=== PATIENT | female | born 1950 | race Caucasian/White ===

== ENCOUNTER 2017-09-12 06:57 | Day surgery (SDC) | payer OTHER ==
[~2017-09-12] VITALS: Ht 172.7 cm; Wt 137.0 kg
[~2017-09-12 06:57] MED LIST: ACEASPCAF; ALBU90OI INH; ALBU90OI61 INH; ALPR.5; ALPR1 PO; AMLO10 PO; AMOCLA875 PO; ASPI325; ASPI325 PO; ASPI81EC PO; ASPIRIN; ATEN100; ATEN100 PO; B Complex1 EAC2 PO; BUPR100; BUPR100 PO; BUPROPION HCL; Bactrim Ds Tab1 EACH; Bactrim Ds Tab1 EACH PO; CEFU500 PO; CELE200 PO; CEPH500 PO; CHLO500 PO; CHOL10002 PO; CLIN150; CONEST.625 PO; CONEST.9; CYCL10 PO; Cleocin HCl150 MG PO; DABI150C PO; DIGO.125; DIGO.125 PO; DOXY100 PO; EPIDRIN; ERGO50000 PO; ERYT.5TO BOTHEYES; FLEC100; FLEXERIL; FOLI1 PO; FURO20; FURO20 PO; FURO40 PO; Flecainide Ace150 MG PO; GABA100 PO; GABAPENTIN; GUAN1; GUAN1 PO; GUANFACINE; HYDACE10B PO; HYDACE7.5; IBUHYD; IBUHYD PO; IBUP600 PO; IBUP800; IBUP800 PO; ISODICACE; ISODICACE PO; Keflex500 MG PO; Klor-Con-Ef 2525 MEQ PO; LASIX; LEVFLO500 PO; LEVSOD100; LEVSOD100 PO; LEVSOD150; LEVSOD175 PO; LEVSOD200; LEVSOD200 PO; LIDO5TO; LIDO5TO TOP; LORA1; Lasix20 MG PO; MAG 64; MAG 64 PO; MAGCHL64ER; MAGCHL64ER PO; MAGOXI400; METO100ER PO; METO2.5 PO; METO5; METO50ER PO; METOPROLOL; MICARDIS PO; MULVITB; MULVITB&C PO; PENVK500 PO; POTASSIUM; POTCHL10ER; POTCHL10ER PO; POTCHL20ER; POTCHL20ER PO; PRED10 PO; RANI150; RANI150 PO; RXPENVK250 PO; SENNP; SPIHYD; SULTRIDS PO; SYMBICORT INH; TELM20 PO; TELM40; TELM40 PO; TOCO400; TRAM50; TRAM50 PO; TRIHYD253A; TRIHYD253A PO; TRIHYD253B; TRIHYD253B PO; TRIHYD5075; VICOD; VITAMIN D-32000 UNI1 PO; VITB100 PO; VITNEPH PO; Vitamin E PO; WARF1; WARF2; WARF2.5 PO; WARF3; WARF3 PO; Wellbutrin PO; XANEX; Xanax2 MG PO; ZINC15 PO
[2017-09-12] MEDS ORDERED: MAGOXI400 PO (08:04)
[2017-09-12] MEDS ORDERED: LOSA25 PO (08:05)
[2017-09-12] MEDS ORDERED: ELIQUIS5 MG PO (09:19)
[2017-09-12] MEDS ORDERED: METO50ER PO (09:20)
== END 2017-09-12 22:53 | disposition home or self-care (01) ==
LOC: MHTC 06:57
PROC: B246ZZ4 Ultrasonography of Right and Left Heart, Transesophageal (ICD-10-PCS; principal; 2017-09-12)
DX: I48.4 Atypical atrial flutter (principal); R00.0 Tachycardia, unspecified; I48.91 Unspecified atrial fibrillation; I44.30 Unspecified atrioventricular block; I51.3 Intracardiac thrombosis, not elsewhere classified; I10 Essential (primary) hypertension
CPT/HCPCS: 93312; 93325; J2250; J3010; J7030

== ENCOUNTER 2017-10-15 02:25 | Day surgery (SDC) | payer OTHER ==
[~2017-10-15] VITALS: Ht 172.7 cm; Wt 136.0 kg
[~2017-10-15 02:25] MED LIST changes: +ELIQUIS5 MG PO; +FISH OIL 1,0001 EAC1 PO; +LOSA25 PO; +MAGOXI400 PO; +METO25 PO; +Micro-K10 MEQ PO
== END 2017-10-15 22:56 | disposition home or self-care (01) ==
LOC: MHTC 02:25
PROC: 5A2204Z Restoration of Cardiac Rhythm, Single (ICD-10-PCS; principal; 2017-10-15)
DX: I48.92 Unspecified atrial flutter (principal); I48.0 Paroxysmal atrial fibrillation; I10 Essential (primary) hypertension; Z86.14 Personal history of Methicillin resistant Staphylococcus aureus infection
CPT/HCPCS: 92960; 93005; 93010; J2250; J3010; J7030

== ENCOUNTER 2017-10-23 14:49 | Observation (INO) | payer OTHER ==
[~2017-10-23] VITALS: Ht 172.7 cm; Wt 139.9 kg
[~2017-10-23 14:49] MED LIST changes: +Norco 10-325 T1 EACH PO
[2017-10-23 15:59] LABS: BASOPHILS ABSOLUTE AUTO 0.06 K/mm3 (0.00-0.23); BASOPHILS PERCENT AUTO 1 % (0-2); EOSINOPHILS ABSOLUTE AUTO 0.08 K/mm3 (0.00-0.68); EOSINOPHILS PERCENT AUTO 1 % (0-6); Hematocrit 52.3 % (33.0-51.0); Hemoglobin 16.8 g/dL (11.5-16.0); IMMATURE GRAN ABSOLUTE AUTO 0.02 K/mm3 (0.00-0.10); IMMATURE GRAN PERCENT AUTO 0 % (0-1); LYMPHOCYTES ABSOLUTE AUTO 2.07 K/mm3 (0.84-5.20); LYMPHOCYTES PERCENT AUTO 29 % (21-46); MONOCYTES ABSOLUTE AUTO 0.67 K/mm3 (0.16-1.47); MONOCYTES PERCENT AUTO 9 % (4-13); Mean Corpuscular HGB Conc 32.1 g/dL (31.5-36.5); Mean Corpuscular Volume 81 fL (80-100); Mean Platelet Volume 10.2 fL (9.1-12.4); NEUTROPHILS ABSOLUTE AUTO 4.23 K/mm3 (1.96-9.15); NEUTROPHILS PERCENT AUTO 59 % (41-73); Platelet Count 274 K/mm3 (150-400); RDW Coefficient Variation 15.2 % (11.7-14.2); RDW Standard Deviation 43.8 fL (35.1-46.3); Red Blood Cell Count 6.45 M/mm3 (3.80-5.20); White Blood Cell Count 7.13 K/mm3 (4.00-11.30)
[2017-10-23 16:15] LABS: Alanine Aminotransfer (ALT/SGP 26 U/L (12-78); Albumin, Blood 3.4 g/dL (3.4-5.0); Albumin/Globulin Ratio 0.8 (0.8-1.8); Alk Phos 70 U/L (50-136); Anion Gap 9 mmol/L (6-16); Aspartate Aminotrans (AST/SGOT 32 U/L (12-37); Bilirubin, Total 0.5 mg/dL (0.1-1.0); Blood Urea Nitrogen 11 mg/dL (8-24); Bun/Creatinine Ratio 11.3 (12.0-20.0); CO2, Blood 26 mmol/L (21-32); Chloride, Blood 103 mmol/L (98-108); Creatinine, Blood 0.97 mg/dL (0.40-1.00); Globulin, Blood 4.3 g/dL (2.2-4.0); Glomerular Filtration Rate >60 (60-); Glucose, Blood 100 mg/dL (70-99); Potassium, Blood 3.7 mmol/L (3.5-5.5); Sodium, Blood 138 mmol/L (136-145); Total Protein, Blood 7.7 g/dL (6.4-8.2)
[2017-10-23] MEDS ORDERED: LOSA25 PO (16:22)
[2017-10-23] MEDS ORDERED: LORA1 PO (16:22)
[2017-10-23 17:18] LABS: Troponin I <0.015 ng/mL (0.000-0.040)
[2017-10-23 22:54] LABS: Bilirubin, Urine Neg (Neg); Blood, Urine 1+ (Neg); Glucose Qualitative, Urine Neg (Neg); Ketones, Urine Neg (Neg); Leukocyte Esterase, Urine Neg (Neg); Nitrite, Urine Neg (Neg); Protein, Urine Neg (Neg); Source, Urine Clean Catch; Urobilinogen, Urine NORM (Normal)
[2017-10-23] MEDS ORDERED: DIPH50 PO (23:02)
[2017-10-23 23:13] LABS: Appearance, Urine Hazy (Clear); Bacteria Rare /hpf; Color, Urine Yellow (P-Yellow); Squamous Epithelial Cells Mod /hpf (Few); White Blood Cells, Urine 0-2 /hpf (0-5)
[2017-10-24 05:36] LABS: Hematocrit 48.8 % (33.0-51.0); Hemoglobin 15.7 g/dL (11.5-16.0); Mean Corpuscular HGB 26.3 pg (26.0-34.0); Mean Corpuscular HGB Conc 32.2 g/dL (31.5-36.5); Mean Corpuscular Volume 82 fL (80-100); Mean Platelet Volume 10.5 fL (9.1-12.4); Platelet Count 271 K/mm3 (150-400); RDW Standard Deviation 43.8 fL (35.1-46.3); Red Blood Cell Count 5.98 M/mm3 (3.80-5.20); White Blood Cell Count 7.39 K/mm3 (4.00-11.30)
[2017-10-24 06:05] LABS: CPK Creatine Kinase 88 U/L (26-193); Free Thyroxine 1.26 ng/dL (0.70-1.60); Troponin I <0.015 ng/mL (0.000-0.040)
[2017-10-24 06:06] LABS: Alanine Aminotransfer (ALT/SGP 24 U/L (12-78); Albumin/Globulin Ratio 0.8 (0.8-1.8); Alk Phos 57 U/L (50-136); Anion Gap 10 mmol/L (6-16); Aspartate Aminotrans (AST/SGOT 32 U/L (12-37); Bilirubin, Total 0.5 mg/dL (0.1-1.0); Blood Urea Nitrogen 12 mg/dL (8-24); Bun/Creatinine Ratio 12.7 (12.0-20.0); CO2, Blood 24 mmol/L (21-32); Calcium, Blood 8.6 mg/dL (8.5-10.1); Chloride, Blood 106 mmol/L (98-108); Creatinine, Blood 0.94 mg/dL (0.40-1.00); Globulin, Blood 3.7 g/dL (2.2-4.0); Glomerular Filtration Rate >60 (60-); Glucose, Blood 104 mg/dL (70-99); Potassium, Blood 4.2 mmol/L (3.5-5.5); Sodium, Blood 140 mmol/L (136-145); Total Protein, Blood 6.7 g/dL (6.4-8.2)
[2017-10-24 14:01] LABS: CPK Creatine Kinase 128 U/L (26-193); Troponin I <0.015 ng/mL (0.000-0.040)
[2017-10-24] MEDS ORDERED: METO50ER PO (16:42)
[2017-10-24] MEDS ORDERED: LANOXIN125 MCG PO (16:42)
[2017-10-24] MEDS ORDERED: METO50 PO (17:12)
== END 2017-10-24 17:45 | disposition home or self-care (01) ==
LOC: ER 14:49 → PCU 14:50 → ER 20:29 → PCU 20:29
PROVIDERS: Emergency Medicine; Internal Medicine
DX: I48.91 Unspecified atrial fibrillation (principal); I48.92 Unspecified atrial flutter; I42.9 Cardiomyopathy, unspecified; E87.6 Hypokalemia; G89.29 Other chronic pain; I10 Essential (primary) hypertension; G43.909 Migraine, unspecified, not intractable, without status migrainosus; Z79.899 Other long term (current) drug therapy; Z88.5 Allergy status to narcotic agent; Z88.8 Allergy status to other drugs, medicaments and biological substances
CPT/HCPCS: 36415; 71046; 80053; 81001; 82550; 83735; 83880; 84439; 84443; 84484; 85025; 85027; 92960; 93005; 93010; 96374; 96375; 96376; 99285; G0378; J1160; J3480; J7030

== ENCOUNTER 2020-07-27 13:22 | Emergency (ER) | payer OTHER ==
[~2020-07-27] VITALS: Ht 157.5 cm; Wt 63.5 kg
[~2020-07-27 13:22] MED LIST changes: +DIPH50 PO; +LANOXIN125 MCG PO; +LORA1 PO; +METO50 PO
[2020-07-27 14:22] LABS: BASOPHILS ABSOLUTE AUTO 0.09 K/mm3 (0.00-0.23); BASOPHILS PERCENT AUTO 1 % (0-2); EOSINOPHILS ABSOLUTE AUTO 0.15 K/mm3 (0.00-0.68); EOSINOPHILS PERCENT AUTO 2 % (0-6); Hematocrit 48.1 % (33.0-51.0); Hemoglobin 15.1 g/dL (11.5-16.0); IMMATURE GRAN ABSOLUTE AUTO 0.02 K/mm3 (0.00-0.10); IMMATURE GRAN PERCENT AUTO 0 % (0-1); LYMPHOCYTES ABSOLUTE AUTO 2.23 K/mm3 (0.84-5.20); LYMPHOCYTES PERCENT AUTO 31 % (21-46); MONOCYTES PERCENT AUTO 8 % (4-13); Mean Corpuscular HGB 26.9 pg (26.0-34.0); Mean Corpuscular HGB Conc 31.4 g/dL (31.5-36.5); Mean Corpuscular Volume 86 fL (80-100); Mean Platelet Volume 10.6 fL (9.1-12.4); NEUTROPHILS ABSOLUTE AUTO 4.02 K/mm3 (1.96-9.15); NEUTROPHILS PERCENT AUTO 57 % (41-73); Platelet Count 230 K/mm3 (150-400); RDW Coefficient Variation 15.8 % (11.7-14.2); RDW Standard Deviation 48.9 fL (35.1-46.3); Red Blood Cell Count 5.61 M/mm3 (3.80-5.20); White Blood Cell Count 7.11 K/mm3 (4.00-11.30)
[2020-07-27 14:45] LABS: Alanine Aminotransfer (ALT/SGP 36 U/L (12-78); Albumin, Blood 3.3 g/dL (3.4-5.0); Albumin/Globulin Ratio 0.7 (0.8-1.8); Alk Phos 68 U/L (50-136); Anion Gap 7 mmol/L (6-16); Aspartate Aminotrans (AST/SGOT 41 U/L (12-37); Bilirubin, Total 0.8 mg/dL (0.1-1.0); Blood Urea Nitrogen 9 mg/dL (8-24); Bun/Creatinine Ratio 8.7 (12.0-20.0); CO2, Blood 25 mmol/L (21-32); Calcium, Blood 9.5 mg/dL (8.5-10.1); Chloride, Blood 108 mmol/L (98-108); Creatinine, Blood 1.04 mg/dL (0.40-1.00); Globulin, Blood 4.5 g/dL (2.2-4.0); Glomerular Filtration Rate 56 (60-); Glucose, Blood 108 mg/dL (70-99); Potassium, Blood 4.2 mmol/L (3.5-5.5); Sodium, Blood 140 mmol/L (136-145); Total Protein, Blood 7.8 g/dL (6.4-8.2); Troponin I <0.015 ng/mL (0.000-0.040)
[2020-07-27] MEDS ORDERED: AMLODIPINE BES2.5 MG PO (18:02)
[2020-07-27] MEDS ORDERED: MAGNESIUM OXID500 MG PO (18:04)
[2020-07-27 18:49] LABS: Source, Urine Clean Catch
[2020-07-27 18:53] LABS: Appearance, Urine Clear (Clear); Bilirubin, Urine Neg (Neg); Blood, Urine 1+ (Neg); Color, Urine Yellow (P-Yellow); Glucose Qualitative, Urine Neg (Neg); Ketones, Urine Neg (Neg); Leukocyte Esterase, Urine 1+ (Neg); Nitrite, Urine Neg (Neg); Protein, Urine Neg (Neg); Urobilinogen, Urine NORM (Normal)
[2020-07-27 18:59] LABS: Bacteria Many /hpf; Red Blood Cells, Urine 0-2 /hpf (0-2); Squamous Epithelial Cells Mod /hpf (Few)
[2020-07-27] MEDS ORDERED: CEFP200 PO (19:32)
== END 2020-07-27 20:17 | disposition home or self-care (01) ==
LOC: ER 13:22
PROVIDERS: Physician Assistant
DX: N12 Tubulo-interstitial nephritis, not specified as acute or chronic (principal); I10 Essential (primary) hypertension; I48.91 Unspecified atrial fibrillation; Z79.899 Other long term (current) drug therapy; Z79.01 Long term (current) use of anticoagulants; Z88.8 Allergy status to other drugs, medicaments and biological substances; Z91.09 Other allergy status, other than to drugs and biological substances; Z88.5 Allergy status to narcotic agent; Z95.0 Presence of cardiac pacemaker
CPT/HCPCS: 36415; 71046; 80053; 81001; 83735; 83880; 84484; 85025; 87086; 93005; 93010; 96365; 99284-25; J0696

== ENCOUNTER 2020-12-05 17:33 | Inpatient (IN) | payer OTHER, MEDICARE ==
[~2020-12-05] VITALS: Ht 180.3 cm; Wt 162.0 kg
[~2020-12-05 17:33] MED LIST changes: +AMLODIPINE BES2.5 MG PO; +CEFP200 PO; +MAGNESIUM OXID500 MG PO
[2020-12-05 18:13] LABS: BASOPHILS ABSOLUTE AUTO 0.04 K/mm3 (0.00-0.23); BASOPHILS PERCENT AUTO 0 % (0-2); EOSINOPHILS ABSOLUTE AUTO 0.04 K/mm3 (0.00-0.68); EOSINOPHILS PERCENT AUTO 0 % (0-6); Hematocrit 44.4 % (33.0-51.0); Hemoglobin 13.9 g/dL (11.5-16.0); IMMATURE GRAN ABSOLUTE AUTO 0.04 K/mm3 (0.00-0.10); IMMATURE GRAN PERCENT AUTO 0 % (0-1); LYMPHOCYTES ABSOLUTE AUTO 0.91 K/mm3 (0.84-5.20); LYMPHOCYTES PERCENT AUTO 9 % (21-46); MONOCYTES ABSOLUTE AUTO 0.42 K/mm3 (0.16-1.47); MONOCYTES PERCENT AUTO 4 % (4-13); Mean Corpuscular HGB 26.3 pg (26.0-34.0); Mean Corpuscular HGB Conc 31.3 g/dL (31.5-36.5); Mean Corpuscular Volume 84 fL (80-100); Mean Platelet Volume 10.8 fL (9.1-12.4); NEUTROPHILS ABSOLUTE AUTO 9.28 K/mm3 (1.96-9.15); NEUTROPHILS PERCENT AUTO 86 % (41-73); Platelet Count 197 K/mm3 (150-400); RDW Coefficient Variation 17.2 % (11.7-14.2); RDW Standard Deviation 52.4 fL (35.1-46.3); Red Blood Cell Count 5.28 M/mm3 (3.80-5.20); White Blood Cell Count 10.73 K/mm3 (4.00-11.30)
[2020-12-05 18:49] LABS: Alanine Aminotransfer (ALT/SGP 18 U/L (12-78); Albumin, Blood 3.2 g/dL (3.4-5.0); Albumin/Globulin Ratio 0.8 (0.8-1.8); Alk Phos 61 U/L (50-136); Anion Gap 6 mmol/L (6-16); Aspartate Aminotrans (AST/SGOT 27 U/L (12-37); Bilirubin, Total 1.2 mg/dL (0.1-1.0); Blood Urea Nitrogen 9 mg/dL (8-24); CO2, Blood 26 mmol/L (21-32); Calcium, Blood 8.9 mg/dL (8.5-10.1); Chloride, Blood 105 mmol/L (98-108); Globulin, Blood 4.2 g/dL (2.2-4.0); Glomerular Filtration Rate >60 (60-); Glucose, Blood 112 mg/dL (70-99); Sodium, Blood 137 mmol/L (136-145); Total Protein, Blood 7.4 g/dL (6.4-8.2); Troponin I <0.015 ng/mL (0.000-0.040)
[2020-12-05 19:00] LABS: SARS-Cov-2 (COVID-19) PCR, MMC NEGATIVE (NEGATIVE)
[2020-12-05] MEDS ORDERED: LOSA50 PO (19:55)
[2020-12-05] MEDS ORDERED: KLOR-CON 1010 ME3 PO (19:55)
[2020-12-05] MEDS ORDERED: Synthroid/Levo0.2 MG PO (19:56)
[2020-12-05] MEDS ORDERED: FUROSEMIDE40 MG PO (19:56)
[2020-12-05] MEDS ORDERED: METO50ER PO (19:56)
--- NOTE | 2020-12-05 22:15 | NUR ---
PT ADMITTED TO PCU VIA GURNEY FROM ER. DAUGHTER PRESENT DURING ADMISSION ASSESSMENT. PT IS ALERT AND ORIENTED. PT TRANSFERRED TO PCU BED FROM ER [facility]. CONTINOUS BIOX PLACED ON. PT HAS LEFT LOWER EXTREMITY REDNESS - PT REPORTS THE SHE HIT HER LEFT FOOT/TOE APPX 3 WEEKS AGO. PT IS MORBIDLY OBESE. PT HAS WOUNDS TO HER COCCYX. PT DENIES ANY CHEST PAIN OR SOB. PT REPORTS RIGHT SHOULDER PAIN. REVIEWED CALL LIGHT WITH PT. CALL LIGHT WITHIN REACH. BED IN LOW POSITION.
--- NOTE | 2020-12-05 22:39 | NUR ---
CARDIZEM DRIP STARTED AT 5MG/HOUR - SEE VS.
--- NOTE | 2020-12-05 22:55 | NUR ---
CARDIZEM DRIP TURNED UP TO 10ML/HOUR - SEE VS.
--- NOTE | 2020-12-06 | NUR ---
CALLED DR. BARRIENTSO ABOUT 3.2 LACTIC ACID; SHE WILL PUT IN ORDERS
--- NOTE | 2020-12-06 01:00 | NUR ---
CARDIZEM DRIP TURNED OFF - PER ADRIAN MERCADO - HEART RATE IS SUSTAINING 90-100. UPDATED DR. BARRIENTOS AT 0055 WITH HEART RATE SUSTAINING 90-100, AND CARDIZEM DRIP TO BE TURNED OFF. CALL LIGHT WITHIN REACH. BED IN LOW POSITION. FLUIDS AT BEDSIDE.
[2020-12-06 03:35] LABS: BASOPHILS ABSOLUTE AUTO 0.07 K/mm3 (0.00-0.23); BASOPHILS PERCENT AUTO 0 % (0-2); EOSINOPHILS PERCENT AUTO 0 % (0-6); Hematocrit 40.5 % (33.0-51.0); Hemoglobin 12.9 g/dL (11.5-16.0); IMMATURE GRAN ABSOLUTE AUTO 0.17 K/mm3 (0.00-0.10); IMMATURE GRAN PERCENT AUTO 1 % (0-1); LYMPHOCYTES ABSOLUTE AUTO 1.75 K/mm3 (0.84-5.20); LYMPHOCYTES PERCENT AUTO 9 % (21-46); MONOCYTES ABSOLUTE AUTO 0.81 K/mm3 (0.16-1.47); MONOCYTES PERCENT AUTO 4 % (4-13); Mean Corpuscular HGB 26.5 pg (26.0-34.0); Mean Corpuscular HGB Conc 31.9 g/dL (31.5-36.5); Mean Corpuscular Volume 83 fL (80-100); Mean Platelet Volume 10.7 fL (9.1-12.4); NEUTROPHILS ABSOLUTE AUTO 16.63 K/mm3 (1.96-9.15); NEUTROPHILS PERCENT AUTO 86 % (41-73); Platelet Count 187 K/mm3 (150-400); RDW Coefficient Variation 17.2 % (11.7-14.2); RDW Standard Deviation 52.6 fL (35.1-46.3); Red Blood Cell Count 4.87 M/mm3 (3.80-5.20); White Blood Cell Count 19.43 K/mm3 (4.00-11.30)
[2020-12-06 03:55] LABS: Bun/Creatinine Ratio 9.6 (12.0-20.0); Calcium, Blood 8.1 mg/dL (8.5-10.1); Creatinine, Blood 1.15 mg/dL (0.40-1.00)
--- NOTE | 2020-12-06 04:30 | NUR ---
UPDATED DR. BARRIENTOS, ON NO URINATION SINCE ADMIT TO FLOOR, HOWEVER PER ER REPORT PT URINATED JUST PRIOR TO ARRIVAL TO PCU FLOOR. BLADDER SCAN ORDER. UPDATED ON LACTIC ACID - NEW ORDER OBTAINED.
--- NOTE | 2020-12-06 04:54 | NUR ---
BLADDER SCAN - 320 CC. UPDATED MAO GREEN.
--- NOTE | 2020-12-06 06:31 | NUR ---
SHIFT SUMMARY - PT'S HEART RATE HAS BEEN SUSTAINING AFIB 80-90'S, CARDIZEM OFF AT 0100. PT DENIED ANY CHEST PAIN OR DISCOMFORT WITH AFIB. PT TOLERATED PO FLUIDS/FOOD TONIGHT WITHOUT COMPLICATIONS. BLADDER SCAN AT 0450 SHOWED 320 CC URINE - NOTIFIED PETER CAVANAUGH. PT HAS BEEN SLEEPING FOR APPX 1 HOUR TONIGHT. IV FLUIDS INFUSED TO LEFT AC IV SITE WITHOUT COMPLICATIONS. LACTIC ACID ELEVATED - SEE LABS. CALL LIGHT WITHIN REACH. BED IN LOW POSITION. FLUIDS AT BEDSIDE.
--- NOTE | 2020-12-06 06:37 | NUR ---
WILL REPORT OFF THIS AM - PT HAS CELLULITIS, NO PAS CURRENTLY ON - AND DVT PROPHYLAXIS DC'D DUE TO RECTAL BLEEDING. PT REPORTS SHE HAS "INTERNAL HEMORROIDS." PT WAS ADAMENT THAT SHE DIDN'T HAVE RECTAL BLEEDING, ONLY "INTERNAL HEMORROIDS."
[2020-12-06 10:35] LABS: Percent Saturation 7.7 % (15.0-50.0)
--- NOTE | 2020-12-06 11:48 | NUR ---
metoprolol and cozaar were held this morning, per ordered parameters, as the systolic blood pressure was less than 110mmHg, both at 0930 and at 1100.
--- NOTE | 2020-12-06 14:15 | NUR ---
Pt is very weak, states lately having difficulty moving around since she has been sick. States that the left leg became red just two days ago; before that it was normal color. Left leg has been kept elevated on 1-2 pillows to help reduce pain and swelling. she has not requested any pain medication. She has been very tired, napping off and on today, and says that she hardly slept last night, with the ER wait and then all the things that staff had to do with her once she arrived in PCU. Encouraged frequent repositioning to help with wound healing of the two tiny ulcers on her buttocks and redness on buttocks and sacal area and prevent further breakdown. She requires help with this. Appetite fair, but poor dentition makes it difficult to chew, so diet was changed to soft bite size. She has had good oral liquid intake.
--- NOTE | 2020-12-06 16:57 | NUR ---
Call from Dr. Abarca requesting update on GI status of pt. He says that he will see the patient later this evening. She has had no GI output at all today, and has eaten with a fair appetite. No nausea/vomiting.
--- NOTE | 2020-12-06 18:24 | NUR ---
OOB to use commode; pt said she didn't want to use the BSC, but insisted on going into the bathroom. This requires a lot of effort on her part, as her weight makes the work much greater, and heart rate was noted 140-160 bpm during the activity. She states that she has not been able to leave her home for 4 years due to her poor health, which she contributes to a fall/accident through a wood deck as well as poor healing wounds on her feet, and her neuropathy. She is at present sitting on the side of the bed, heart rate is down to 145 while she is dangling on side of bed to eat her dinner. States that she feels much better after passing a lot of gas and having a normal bowel movement.
--- NOTE | 2020-12-06 18:55 | NUR ---
Call to Dr. De Souza regarding positive blood cultures gram - bacilli in both bottles, reported to me this evening by coreroom foundry laborer. New orders received.
[2020-12-07 04:09] LABS: Hematocrit 37.9 % (33.0-51.0); Hemoglobin 12.6 g/dL (11.5-16.0); Mean Corpuscular HGB 26.9 pg (26.0-34.0); Mean Corpuscular HGB Conc 33.2 g/dL (31.5-36.5); Mean Corpuscular Volume 81 fL (80-100); Mean Platelet Volume 11.1 fL (9.1-12.4); Platelet Count 148 K/mm3 (150-400); RDW Coefficient Variation 17.3 % (11.7-14.2); RDW Standard Deviation 50.3 fL (35.1-46.3); Red Blood Cell Count 4.68 M/mm3 (3.80-5.20); White Blood Cell Count 13.79 K/mm3 (4.00-11.30)
[2020-12-07 04:28] LABS: Bun/Creatinine Ratio 14.8 (12.0-20.0); Calcium, Blood 8.2 mg/dL (8.5-10.1); Creatinine, Blood 0.95 mg/dL (0.40-1.00); Potassium, Blood 3.8 mmol/L (3.5-5.5)
--- NOTE | 2020-12-07 06:35 | NUR ---
SHIFT SUMMARY NO ACUTE CHANGES NOTED THROUGH THE NIGHT. VSS, ON RA, PT HAS RECIEVED TYLENOL FOR A HEADACHE X1 BUT CONTINUES TO DENY ANY ABD PAIN/NAUSEA. PT WAS UP TO THE BSC X2, HR REMAINED WITHIN 95-115 BPM, PT TOLERATED WNL, SHE DID C/O SOB X1 THAT RESOLVED AFTER PASSING A LARGE AMOUNT OF FLATUS. WAS IN TO SPEAK WITH THE PT, HE MENTIONED A POSSIBLE COLONOSCOPY DUE TO PRE-CANCEROUS POLYS ON PREVIOUS SCOPES, PT DENIED THE NEED & STATED "MY HEART CAN'T TAKE ANY PROCEDURE", THE PT WAS EDUCATED AT THIS TIME, REASSURANCE PROVIDED, PT CONTINUES TO DENY NEED. NO BLEEDING NOTED THROUGH THE NIGHT. PT IS TOLERATING PO INTAKE, VOIDING WNL.
--- NOTE | 2020-12-07 10:58 | NUR ---
Sruthi has been awake and conversant today. C/O of pain in her back, hips, and left knee, for which she takes Tylenol throughout the day (at home). She has declined OOB for breakfast, and also declined OOB to the recliner both before and after lunch. She has been using the BSC to void this morning and during the night, I was told. Heart rate controlled rate this shift so far, once had a spike of rate up to 116 but it was not sustained. Heart rhythm is atrial fibrillation, for the most part in the range of 90-99 bpm per Jessica the television operator today. Left upper inner thigh is perhaps less red and swollen than yesterday, but the left lower leg remains very hot, red, and swollen. Pt denies pain there due to her significant neuropathy making her feet and legs numb. Wound cultures were initially positive for MRSA today. she has not had much of an appetite this morning, but is drinking cranberry juice and 7 UP.
--- NOTE | 2020-12-07 18:09 | NUR ---
Sruthi has made much improvement in control of atrial fibrillation today. This afternoon activity of sitting on side of bed, ambulating to the bathroom resulted in heart rate of 95-109, and much better tolerance on side of patient. She has chronic back, hips and left knee pain, but otherwise has neuropathy which prevents her from good sensation of the lower extremities, except for shooting electrical shocks which she says kept her awake last night. Ambulating to the bathroom with minimal assistance using FWW. Appetite fair, voiding and having bowel movements. BM was loose twice today, and she also has "a lot of gas". Taking two antibiotics IV and probiotics orally. Left leg redness and edema are significant. Keeping left leg elevated when pt is in bed. PAOLA hose applied to both legs, but the largest size of PAOLA hose was painful for her left leg so it was removed.
[2020-12-08 04:11] LABS: BASOPHILS ABSOLUTE AUTO 0.05 K/mm3 (0.00-0.23); BASOPHILS PERCENT AUTO 1 % (0-2); EOSINOPHILS ABSOLUTE AUTO 0.18 K/mm3 (0.00-0.68); EOSINOPHILS PERCENT AUTO 2 % (0-6); Hematocrit 40.6 % (33.0-51.0); IMMATURE GRAN ABSOLUTE AUTO 0.04 K/mm3 (0.00-0.10); IMMATURE GRAN PERCENT AUTO 0 % (0-1); LYMPHOCYTES ABSOLUTE AUTO 1.69 K/mm3 (0.84-5.20); LYMPHOCYTES PERCENT AUTO 18 % (21-46); MONOCYTES ABSOLUTE AUTO 0.63 K/mm3 (0.16-1.47); MONOCYTES PERCENT AUTO 7 % (4-13); Mean Corpuscular HGB 26.7 pg (26.0-34.0); Mean Corpuscular Volume 84 fL (80-100); Mean Platelet Volume 11.3 fL (9.1-12.4); NEUTROPHILS ABSOLUTE AUTO 6.94 K/mm3 (1.96-9.15); NEUTROPHILS PERCENT AUTO 73 % (41-73); Platelet Count 185 K/mm3 (150-400); RDW Coefficient Variation 17.4 % (11.7-14.2); RDW Standard Deviation 53.1 fL (35.1-46.3); Red Blood Cell Count 4.86 M/mm3 (3.80-5.20); White Blood Cell Count 9.53 K/mm3 (4.00-11.30)
[2020-12-08 04:34] LABS: Albumin, Blood 2.5 g/dL (3.4-5.0); Albumin/Globulin Ratio 0.6 (0.8-1.8); Bilirubin, Total 0.7 mg/dL (0.1-1.0); Bun/Creatinine Ratio 12.4 (12.0-20.0); Calcium, Blood 8.7 mg/dL (8.5-10.1); Creatinine, Blood 1.13 mg/dL (0.40-1.00); Globulin, Blood 4.3 g/dL (2.2-4.0); Potassium, Blood 3.7 mmol/L (3.5-5.5); Total Protein, Blood 6.8 g/dL (6.4-8.2)
--- NOTE | 2020-12-08 06:29 | NUR ---
SHIFT SUMMARY PATIENT FOUND TO BE A PLESANT LADY WHO IS A&OX4. GEN WEAKNESS NOTED. UP WITH ONE ASSIST IN ROOM. VSS. ON RA. NO TELE ORDERED. TOLERATING CARDIAC DIET WITHOUT ISSUE. VOIDING WELL PER BSC WITH SBA. SOME CHRONIC PAIN TO BACK WITH DECENT RELIEF WITH PRN TYLENOL. ENCOURAGING SELF TURNS IN BED. IV ABX INFUSED PER ORDER. NO ACUTE CONCERNS AT THIS TIME. WILL CONTINUE TO MONITOR UNTIL REPORT GIVEN TO BELEN GOOD.
[2020-12-08 14:37] LABS: Vancomycin, Trough 17.8 ug/mL (5.0-10.0)
--- NOTE | 2020-12-08 17:46 | NUR ---
SHIFT SUMMARY; ASSUMED CARE AT 0700. A/A/OX4 DURING SHIFT. AMBULATES TO RESTROOM WITH WALKER AND STANDY ASSIST. LEFT LOWER LEG RED AND WARM. ABX PER EMAR. REPOSITIONS SELF IN BED NEEDED. VSS, NO ACUTE CHANGES DURING SHIFT. REPORT TO MEDICAL FLOOR RN TO ASSUME CARE FOR INHOUSE TRANSFER.
--- NOTE | 2020-12-08 19:34 | NUR ---
SHIFT SUMMARY PT IS AOX4. PT DENIES PAIN, N/V, SOB. PT IS ONE ASSIST IN ROOM. TELE IS AFIB 70S-80S. PT APPETITE IS GOOD. PT'S DAUGHTERS VISITED THIS ANDRÉS. PLAN IS FOR POSSIBLE DC TOMORROW. PT TRANSFERRED TO UNIT AT APPROXIMATELY 1815. PT IS IN BED, CALL LIGHT IN REACH, LOW POSITION.
[2020-12-09 05:16] LABS: Hematocrit 41.7 % (33.0-51.0); Mean Corpuscular HGB 26.4 pg (26.0-34.0); Mean Corpuscular HGB Conc 31.2 g/dL (31.5-36.5); Mean Corpuscular Volume 85 fL (80-100); Mean Platelet Volume 11.3 fL (9.1-12.4); Platelet Count 194 K/mm3 (150-400); RDW Coefficient Variation 17.5 % (11.7-14.2); RDW Standard Deviation 53.9 fL (35.1-46.3); Red Blood Cell Count 4.93 M/mm3 (3.80-5.20)
--- NOTE | 2020-12-09 05:16 | NUR ---
SHIFT SUMMARY PT IS A 70 Y/O FEMALE, ADMITTED FOR AFIB WITH RVR. SHE IS A&O X 4, 1PA TO THE BATHROOM. NO C/O CHEST PAIN, NAUSEA OR SOB. VITAL SIGNS STABLE, HR IN THE 80S. NO ACUTE CHANGES IN PT CONDITION NOTED DURING THE NIGHT. WILL CONTINUE TO MONITOR AND TREAT PER EMAR UNTIL HAND OFF TO DAY SHIFT RN.
[2020-12-09 05:44] LABS: Albumin, Blood 2.5 g/dL (3.4-5.0); Albumin/Globulin Ratio 0.6 (0.8-1.8); Bilirubin, Total 0.6 mg/dL (0.1-1.0); Bun/Creatinine Ratio 12.4 (12.0-20.0); Calcium, Blood 9.1 mg/dL (8.5-10.1); Creatinine, Blood 1.05 mg/dL (0.40-1.00); Globulin, Blood 4.5 g/dL (2.2-4.0); Potassium, Blood 3.8 mmol/L (3.5-5.5)
[2020-12-09 16:48] LABS: Vancomycin, Trough 19.5 ug/mL (5.0-10.0)
--- NOTE | 2020-12-09 18:42 | NUR ---
SHIFT SUMMARY PT IS AOX4. PT MEDICATED FOR ABD PAIN X1. PT DENIES N/V/D. PT HAD ONE SMALL BM THIS SHIFT. NO PROCEDURES THIS SHIFT. PLAN IS TO MONITOR INFECTION AND PT WILL STAY TONIGHT, POSSIBLE DC TOMORROW. PT'S DAUGHTER VISITED THIS SHIFT. PT IS IN BED, CALL LIGHT IN REACH.
--- NOTE | 2020-12-10 06:15 | NUR ---
SHIFT SUMMARY PT IS A 70 Y/O FEMALE, ADMITTED FOR AFIB WITH RVR. SHE IS A&O X 4, 1PA TO THE BATHROOM. SHE WAS MEDICATED FOR BACK PAIN, DENIED ANY C/O NAUSEA OR SOB. VITAL SIGNS STABLE. NO ACUTE CHANGES IN PT CONDITION NOTED DURING THE NIGHT. WILL CONTINUE TO MONITOR AND TREAT PER EMAR UNTIL HAND OFF TO DAY SHIFT RN.
[2020-12-10] MEDS ORDERED: VISBIOME 112.51 EACH PO (09:32)
[2020-12-10] MEDS ORDERED: GABA300 PO (09:32)
[2020-12-10] MEDS ORDERED: DOXY100 PO (09:33)
--- NOTE | 2020-12-10 12:14 | NUR ---
PT DISCHARGED FROM THE UNIT. IV REMOVED. DISCHARGE INSTRUCTIONS REVIEWED. MEDICATIONS FAXED TO PHARMACY. PT LEFT UNIT VIA WHEEL CHAIR, DAUGHTER TO DRIVE HOME.
== END 2020-12-10 11:55 | disposition home or self-care (01) | DRG 871 ==
LOC: ER 17:33 → PCU 19:54 → MEDS 12-08 18:08
PROVIDERS: Emergency Medicine; Internal Medicine; ADMIT Family Medicine
DX: A41.02 Sepsis due to Methicillin resistant Staphylococcus aureus (principal); I50.31 Acute diastolic (congestive) heart failure; A28.0 Pasteurellosis; L03.116 Cellulitis of left lower limb; N17.9 Acute kidney failure, unspecified; K62.5 Hemorrhage of anus and rectum; Z68.41 Body mass index [BMI] 40.0-44.9, adult; I42.8 Other cardiomyopathies; Z20.822 Contact with and (suspected) exposure to COVID-19; I48.91 Unspecified atrial fibrillation; G62.9 Polyneuropathy, unspecified; G43.909 Migraine, unspecified, not intractable, without status migrainosus; Z90.49 Acquired absence of other specified parts of digestive tract; Z96.641 Presence of right artificial hip joint; Z90.710 Acquired absence of both cervix and uterus; Z95.0 Presence of cardiac pacemaker; Z88.8 Allergy status to other drugs, medicaments and biological substances; Z88.5 Allergy status to narcotic agent; Z79.899 Other long term (current) drug therapy; E66.01 Morbid (severe) obesity due to excess calories; E03.9 Hypothyroidism, unspecified; I48.0 Paroxysmal atrial fibrillation; I27.20 Pulmonary hypertension, unspecified; F41.0 Panic disorder [episodic paroxysmal anxiety]; F43.10 Post-traumatic stress disorder, unspecified; Z89.421 Acquired absence of other right toe(s); D50.9 Iron deficiency anemia, unspecified; K59.00 Constipation, unspecified; I10 Essential (primary) hypertension; Z91.018 Allergy to other foods; Z91.048 Other nonmedicinal substance allergy status; Z79.01 Long term (current) use of anticoagulants; Z79.890 Hormone replacement therapy; M54.9 Dorsalgia, unspecified; I49.5 Sick sinus syndrome; M19.90 Unspecified osteoarthritis, unspecified site; Z87.442 Personal history of urinary calculi; Z90.722 Acquired absence of ovaries, bilateral; Z86.010 Personal history of colon polyps
CPT/HCPCS: 36415; 80048; 80053; 80202; 82728; 83540; 83550; 83605; 83735; 83880; 84443; 84484; 85025; 85027; 85651; 87040; 87077; 87081; 93005; 93010; 93306; 93970; 96360; 96361; 99285-25; A9270; J0295; J0690; J0696; J3370; J7030; J7050; J7120; U0004

== ENCOUNTER → 2021-02-15 | Outpatient (CLI) | payer OTHER, MEDICARE ==
[~2021-02-15] MED LIST changes: +FUROSEMIDE40 MG PO; +GABA300 PO; +KLOR-CON 1010 ME3 PO; +LOSA50 PO; +Synthroid/Levo0.2 MG PO; +VISBIOME 112.51 EACH PO
[2021-02-15 18:05] LABS: BASOPHILS PERCENT AUTO 2 % (0-2); EOSINOPHILS ABSOLUTE AUTO 0.17 K/mm3 (0.00-0.68); EOSINOPHILS PERCENT AUTO 3 % (0-6); Hematocrit 46.6 % (33.0-51.0); Hemoglobin 14.7 g/dL (11.5-16.0); IMMATURE GRAN ABSOLUTE AUTO 0.02 K/mm3 (0.00-0.10); IMMATURE GRAN PERCENT AUTO 0 % (0-1); LYMPHOCYTES ABSOLUTE AUTO 2.17 K/mm3 (0.84-5.20); LYMPHOCYTES PERCENT AUTO 33 % (21-46); MONOCYTES ABSOLUTE AUTO 0.58 K/mm3 (0.16-1.47); MONOCYTES PERCENT AUTO 9 % (4-13); Mean Corpuscular HGB 26.7 pg (26.0-34.0); Mean Corpuscular HGB Conc 31.5 g/dL (31.5-36.5); Mean Corpuscular Volume 85 fL (80-100); Mean Platelet Volume 11.3 fL (9.1-12.4); NEUTROPHILS ABSOLUTE AUTO 3.51 K/mm3 (1.96-9.15); NEUTROPHILS PERCENT AUTO 54 % (41-73); Platelet Count 263 K/mm3 (150-400); RDW Coefficient Variation 19.9 % (11.7-14.2); RDW Standard Deviation 59.2 fL (35.1-46.3); White Blood Cell Count 6.55 K/mm3 (4.00-11.30)
[2021-02-15 18:32] LABS: Alanine Aminotransfer (ALT/SGP 18 U/L (12-78); Albumin, Blood 2.9 g/dL (3.4-5.0); Albumin/Globulin Ratio 0.6 (0.8-1.8); Alk Phos 83 U/L (50-136); Anion Gap 6 mmol/L (6-16); Aspartate Aminotrans (AST/SGOT 35 U/L (12-37); Bilirubin, Total 0.9 mg/dL (0.1-1.0); Blood Urea Nitrogen 11 mg/dL (8-24); Bun/Creatinine Ratio 11.1 (12.0-20.0); CHOL/HDL RATIO 5.9; CO2, Blood 28 mmol/L (21-32); Calcium, Blood 9.6 mg/dL (8.5-10.1); Chloride, Blood 106 mmol/L (98-108); Cholesterol 176 mg/dL (50-200); Creatinine, Blood 0.99 mg/dL (0.40-1.00); Glomerular Filtration Rate 55 (60-); Glucose, Blood 80 mg/dL (70-99); HDL Cholesterol 30 mg/dL (>39); Low Density Lipoprotein Chol 120 mg/dL (0-110); Sodium, Blood 140 mmol/L (136-145); Total Protein, Blood 7.9 g/dL (6.4-8.2); Triglycerides 129 mg/dL (30-160); Very Low Density Lipoprot Chol 25 mg/dL (6-32)
[2021-02-16 09:10] LABS: HCV AB <0.1 (0.0-0.9)
== END | disposition home or self-care (01) ==
LOC: LAB SHORT 11:35
PROVIDERS: Nurse Practitioner Family
DX: Z11.59 Encounter for screening for other viral diseases (principal); I48.3 Typical atrial flutter; E03.9 Hypothyroidism, unspecified; E78.5 Hyperlipidemia, unspecified; I10 Essential (primary) hypertension
CPT/HCPCS: 80053; 80061; 83036; 83735; 84443; 85025; 86803

== ENCOUNTER 2021-07-05 15:59 | Emergency (ER) | payer OTHER ==
[~2021-07-05] VITALS: Ht 172.7 cm; Wt 145.2 kg
[2021-07-05] MEDS ORDERED: CEPH500 PO (16:31)
== END 2021-07-05 18:36 | disposition home or self-care (01) ==
LOC: ER 15:59
DX: L89.312 Pressure ulcer of right buttock, stage 2 (principal); I10 Essential (primary) hypertension; I48.91 Unspecified atrial fibrillation; Z79.01 Long term (current) use of anticoagulants; Z79.2 Long term (current) use of antibiotics; Z79.899 Other long term (current) drug therapy; Z88.5 Allergy status to narcotic agent; Z91.048 Other nonmedicinal substance allergy status; Z91.018 Allergy to other foods; Z88.8 Allergy status to other drugs, medicaments and biological substances
CPT/HCPCS: 99283

== ENCOUNTER 2021-07-19 13:49 | Emergency (ER) | payer OTHER ==
[~2021-07-19] VITALS: Ht 175.3 cm; Wt 136.1 kg
[2021-07-19 15:34] LABS: BASOPHILS ABSOLUTE AUTO 0.06 K/mm3 (0.00-0.23); BASOPHILS PERCENT AUTO 1 % (0-2); EOSINOPHILS ABSOLUTE AUTO 0.12 K/mm3 (0.00-0.68); EOSINOPHILS PERCENT AUTO 1 % (0-6); Hematocrit 38.7 % (33.0-51.0); Hemoglobin 12.4 g/dL (11.5-16.0); IMMATURE GRAN ABSOLUTE AUTO 0.07 K/mm3 (0.00-0.10); IMMATURE GRAN PERCENT AUTO 1 % (0-1); LYMPHOCYTES ABSOLUTE AUTO 1.36 K/mm3 (0.84-5.20); LYMPHOCYTES PERCENT AUTO 14 % (21-46); MONOCYTES ABSOLUTE AUTO 0.88 K/mm3 (0.16-1.47); MONOCYTES PERCENT AUTO 9 % (4-13); Mean Corpuscular HGB 26.1 pg (26.0-34.0); Mean Corpuscular Volume 81 fL (80-100); NEUTROPHILS PERCENT AUTO 75 % (41-73); Platelet Count 227 K/mm3 (150-400); RDW Coefficient Variation 19.8 % (11.7-14.2); Red Blood Cell Count 4.76 M/mm3 (3.80-5.20); White Blood Cell Count 9.99 K/mm3 (4.00-11.30)
[2021-07-19 15:44] LABS: Albumin, Blood 2.6 g/dL (3.4-5.0); Albumin/Globulin Ratio 0.5 (0.8-1.8); Bilirubin, Total 1.1 mg/dL (0.1-1.0); Calcium, Blood 8.9 mg/dL (8.5-10.1); Globulin, Blood 4.9 g/dL (2.2-4.0); Potassium, Blood 3.6 mmol/L (3.5-5.5); Total Protein, Blood 7.5 g/dL (6.4-8.2)
[2021-07-19 15:46] LABS: Source, Urine Clean Catch
[2021-07-19 15:53] LABS: Appearance, Urine Clear (Clear); Bilirubin, Urine Neg (Neg); Blood, Urine 2+ (Neg); Color, Urine Yellow (P-Yellow); Glucose Qualitative, Urine Neg (Neg); Ketones, Urine Neg (Neg); Leukocyte Esterase, Urine Neg (Neg); Nitrite, Urine Neg (Neg); Protein, Urine 1+ (Neg); Specific Gravity, Urine 1.015 (1.003-1.022); Urobilinogen, Urine NORM (Normal)
[2021-07-19 16:19] LABS: Bacteria Rare /hpf; Squamous Epithelial Cells Few /hpf (Few)
[2021-07-19 16:29] LABS: Influenza A, PCR NEGATIVE (NEGATIVE); Influenza B, PCR NEGATIVE (NEGATIVE); Resp Syncytial Virus, PCR NEGATIVE (NEGATIVE); SARS-Cov-2 (COVID-19) PCR, MMC NEGATIVE (NEGATIVE)
== END 2021-07-19 19:40 | disposition home or self-care (01) ==
LOC: ER 13:49
PROVIDERS: Physician Assistant
DX: B34.9 Viral infection, unspecified (principal); Z20.822 Contact with and (suspected) exposure to COVID-19; I10 Essential (primary) hypertension; Z79.899 Other long term (current) drug therapy; Z88.5 Allergy status to narcotic agent; Z88.8 Allergy status to other drugs, medicaments and biological substances
CPT/HCPCS: 0241U; 36415; 51701; 71045; 80053; 81001; 83605; 84145; 85025; 86140; 87086; 93005; 93010; 99284-25

== ENCOUNTER 2021-08-16 13:20 | Emergency (ER) | payer OTHER ==
[~2021-08-16] VITALS: Ht 172.7 cm; Wt 136.1 kg
[2021-08-16 14:55] LABS: BASOPHILS ABSOLUTE AUTO 0.06 K/mm3 (0.00-0.23); BASOPHILS PERCENT AUTO 1 % (0-2); EOSINOPHILS ABSOLUTE AUTO 0.26 K/mm3 (0.00-0.68); EOSINOPHILS PERCENT AUTO 6 % (0-6); Hematocrit 26.4 % (33.0-51.0); IMMATURE GRAN ABSOLUTE AUTO 0.01 K/mm3 (0.00-0.10); IMMATURE GRAN PERCENT AUTO 0 % (0-1); LYMPHOCYTES ABSOLUTE AUTO 1.77 K/mm3 (0.84-5.20); LYMPHOCYTES PERCENT AUTO 38 % (21-46); MONOCYTES ABSOLUTE AUTO 0.54 K/mm3 (0.16-1.47); MONOCYTES PERCENT AUTO 12 % (4-13); Mean Corpuscular HGB 25.5 pg (26.0-34.0); Mean Corpuscular HGB Conc 30.3 g/dL (31.5-36.5); Mean Corpuscular Volume 84 fL (80-100); Mean Platelet Volume 10.1 fL (9.1-12.4); NEUTROPHILS ABSOLUTE AUTO 1.98 K/mm3 (1.96-9.15); NEUTROPHILS PERCENT AUTO 43 % (41-73); Platelet Count 261 K/mm3 (150-400); RDW Coefficient Variation 19.3 % (11.7-14.2); RDW Standard Deviation 59.3 fL (35.1-46.3); Red Blood Cell Count 3.14 M/mm3 (3.80-5.20); White Blood Cell Count 4.62 K/mm3 (4.00-11.30)
[2021-08-16 15:26] LABS: Alanine Aminotransfer (ALT/SGP 12 U/L (12-78); Albumin, Blood 1.8 g/dL (3.4-5.0); Albumin/Globulin Ratio 0.5 (0.8-1.8); Alk Phos 55 U/L (50-136); Anion Gap 9 mmol/L (6-16); Aspartate Aminotrans (AST/SGOT 25 U/L (12-37); Bilirubin, Total 0.7 mg/dL (0.1-1.0); Blood Urea Nitrogen 7 mg/dL (8-24); Bun/Creatinine Ratio 8.4 (12.0-20.0); CO2, Blood 22 mmol/L (21-32); Calcium, Blood 7.9 mg/dL (8.5-10.1); Chloride, Blood 105 mmol/L (98-108); Creatinine, Blood 0.83 mg/dL (0.40-1.00); Globulin, Blood 3.8 g/dL (2.2-4.0); Glomerular Filtration Rate >60 (60-); Glucose, Blood 85 mg/dL (70-99); Potassium, Blood 3.7 mmol/L (3.5-5.5); Sodium, Blood 136 mmol/L (136-145); Total Protein, Blood 5.6 g/dL (6.4-8.2)
[2021-08-16] MEDS ORDERED: TORSE20 PO (16:39)
== END 2021-08-16 20:40 | disposition home or self-care (01) ==
LOC: ER 13:20
PROVIDERS: Student in an Organized Health Care Education/Training Program
DX: D64.9 Anemia, unspecified (principal); K92.1 Melena; K64.4 Residual hemorrhoidal skin tags; R60.0 Localized edema; E88.09 Other disorders of plasma-protein metabolism, not elsewhere classified; R79.89 Other specified abnormal findings of blood chemistry; L98.429 Non-pressure chronic ulcer of back with unspecified severity; Z88.8 Allergy status to other drugs, medicaments and biological substances; Z88.5 Allergy status to narcotic agent; Z91.048 Other nonmedicinal substance allergy status; Z91.018 Allergy to other foods; Z79.899 Other long term (current) drug therapy; I10 Essential (primary) hypertension; I48.91 Unspecified atrial fibrillation; G43.909 Migraine, unspecified, not intractable, without status migrainosus
CPT/HCPCS: 71045; 80053; 83880; 85025; 93971; 96374; 99284-25; J1940

== ENCOUNTER → 2021-08-30 | Outpatient (CLI) | payer OTHER ==
[~2021-08-30] MED LIST changes: +TORSE20 PO
[2021-08-30 19:16] LABS: Hematocrit 29.3 % (33.0-51.0); Hemoglobin 8.9 g/dL (11.5-16.0); Mean Corpuscular HGB 24.9 pg (26.0-34.0); Mean Corpuscular HGB Conc 30.4 g/dL (31.5-36.5); Mean Corpuscular Volume 82 fL (80-100); Mean Platelet Volume 10.5 fL (9.1-12.4); NRBC ABSOLUTE 0.02 K/mm3 (0.00-0.02); NRBC Auto 0.2 /100 WBC (0.0-0.2); Platelet Count 407 K/mm3 (150-400); RDW Standard Deviation 52.6 fL (35.1-46.3); Red Blood Cell Count 3.58 M/mm3 (3.80-5.20); White Blood Cell Count 12.77 K/mm3 (4.00-11.30)
[2021-08-30 19:45] LABS: Alanine Aminotransfer (ALT/SGP 13 U/L (12-78); Albumin, Blood 2.3 g/dL (3.4-5.0); Albumin/Globulin Ratio 0.5 (0.8-1.8); Alk Phos 104 U/L (50-136); Anion Gap 3 mmol/L (6-16); Aspartate Aminotrans (AST/SGOT 27 U/L (12-37); Bilirubin, Total 0.5 mg/dL (0.1-1.0); Blood Urea Nitrogen 11 mg/dL (8-24); Bun/Creatinine Ratio 12.9 (12.0-20.0); CO2, Blood 31 mmol/L (21-32); Calcium, Blood 8.5 mg/dL (8.5-10.1); Chloride, Blood 98 mmol/L (98-108); Creatinine, Blood 0.85 mg/dL (0.40-1.00); Globulin, Blood 4.7 g/dL (2.2-4.0); Glomerular Filtration Rate >60 (60-); Glucose, Blood 99 mg/dL (70-99); Potassium, Blood 4.8 mmol/L (3.5-5.5); Sodium, Blood 132 mmol/L (136-145)
== END | disposition home or self-care (01) ==
LOC: LAB SHORT 11:15
PROVIDERS: Family Medicine
DX: E11.42 Type 2 diabetes mellitus with diabetic polyneuropathy (principal); R60.1 Generalized edema; Z74.09 Other reduced mobility; Z91.81 History of falling
CPT/HCPCS: 80053; 82043; 83880; 85027

== ENCOUNTER → 2021-10-17 | Outpatient (CLI) | payer OTHER ==
[2021-10-17 13:00] LABS: Source, Urine Clean Catch
[2021-10-17 13:45] LABS: Appearance, Urine Turbid (Clear); Bilirubin, Urine Neg (Neg); Blood, Urine 5+ (Neg); Color, Urine Amber (P-Yellow); Glucose Qualitative, Urine Neg (Neg); Ketones, Urine Neg (Neg); Leukocyte Esterase, Urine 3+ (Neg); Nitrite, Urine Pos (Neg); Protein, Urine 2+ (Neg); Urobilinogen, Urine NORM (Normal)
[2021-10-17 14:18] LABS: Bacteria Many /hpf; Red Blood Cells, Urine TNTC /hpf (0-2); Squamous Epithelial Cells Few /hpf (Few); White Blood Cells, Urine TNTC /hpf (0-5)
[2021-10-17 14:19] LABS: Calcium Oxalate Crystals Mod /hpf
== END ==
LOC: LAB SHORT 10:10
PROVIDERS: Pediatrics
DX: N39.0 Urinary tract infection, site not specified (principal)
CPT/HCPCS: 81001; 87077; 87086; 87186

== ENCOUNTER 2021-12-30 15:44 | Inpatient (IN) | payer OTHER ==
[~2021-12-30] VITALS: Ht 172.7 cm; Wt 141.4 kg
[2021-12-30 16:49] LABS: BASOPHILS ABSOLUTE AUTO 0.04 K/mm3 (0.00-0.23); BASOPHILS PERCENT AUTO 1 % (0-2); EOSINOPHILS ABSOLUTE AUTO 0.02 K/mm3 (0.00-0.68); EOSINOPHILS PERCENT AUTO 0 % (0-6); Hemoglobin 8.4 g/dL (11.5-16.0); IMMATURE GRAN ABSOLUTE AUTO 0.09 K/mm3 (0.00-0.10); IMMATURE GRAN PERCENT AUTO 1 % (0-1); LYMPHOCYTES ABSOLUTE AUTO 0.76 K/mm3 (0.84-5.20); LYMPHOCYTES PERCENT AUTO 10 % (21-46); MONOCYTES ABSOLUTE AUTO 0.62 K/mm3 (0.16-1.47); MONOCYTES PERCENT AUTO 8 % (4-13); Mean Corpuscular HGB 18.4 pg (26.0-34.0); Mean Corpuscular Volume 61 fL (80-100); NEUTROPHILS ABSOLUTE AUTO 6.02 K/mm3 (1.96-9.15); NEUTROPHILS PERCENT AUTO 80 % (41-73); NRBC ABSOLUTE 0.03 K/mm3 (0.00-0.02); NRBC Auto 0.4 /100 WBC (0.0-0.2); RDW Coefficient Variation 20.3 % (11.7-14.2); RDW Standard Deviation 43.5 fL (35.1-46.3); Red Blood Cell Count 4.56 M/mm3 (3.80-5.20)
[2021-12-30 16:53] LABS: Source, Urine Straight Cath
[2021-12-30 16:54] LABS: Magnesium, Blood 1.5 mg/dL (1.6-2.4)
[2021-12-30 16:58] LABS: Thyroid Stimulating Hormone 3.16 uIU/mL (0.360-4.800)
[2021-12-30 16:59] LABS: Appearance, Urine Cloudy (Clear); Bilirubin, Urine Neg (Neg); Blood, Urine 5+ (Neg); Color, Urine Yellow (P-Yellow); Glucose Qualitative, Urine Neg (Neg); Ketones, Urine Neg (Neg); Leukocyte Esterase, Urine 3+ (Neg); Nitrite, Urine Neg (Neg); Protein, Urine 3+ (Neg); Specific Gravity, Urine 1.015 (1.003-1.022); Urobilinogen, Urine NORM (Normal)
[2021-12-30 17:00] LABS: Mean Platelet Volume 8.9 fL (9.1-12.4); Platelet Count 255 K/mm3 (150-400); White Blood Cell Count 7.34 K/mm3 (4.00-11.30)
[2021-12-30 17:04] LABS: Albumin, Blood 2.3 g/dL (3.4-5.0); Albumin/Globulin Ratio 0.5 (0.8-1.8); Bilirubin, Total 0.8 mg/dL (0.1-1.0); Bun/Creatinine Ratio 16.7 (12.0-20.0); Calcium, Blood 10.4 mg/dL (8.5-10.1); Creatinine, Blood 1.14 mg/dL (0.40-1.00); Globulin, Blood 4.4 g/dL (2.2-4.0); Potassium, Blood 5.2 mmol/L (3.5-5.5); Total Protein, Blood 6.7 g/dL (6.4-8.2)
[2021-12-30 17:08] LABS: Calcium Oxalate Crystals Mod /hpf
[2021-12-30 17:09] LABS: Triple Phosphate Crystals Few /hpf; White Blood Cells, Urine TNTC /hpf (0-5)
[2021-12-30 17:10] LABS: Red Blood Cells, Urine TNTC /hpf (0-2); Renal Epithelial Rare /hpf (0-Rare); Squamous Epithelial Cells Not Seen /hpf (Few); Transitional Epithelial Cells Rare /hpf (0-Rare)
[2021-12-30 17:11] LABS: Bacteria Many /hpf
[2021-12-30 17:31] LABS: Influenza A, PCR NEGATIVE (NEGATIVE); Influenza B, PCR NEGATIVE (NEGATIVE); Resp Syncytial Virus, PCR NEGATIVE (NEGATIVE); SARS-Cov-2 (COVID-19) PCR, MMC NEGATIVE (NEGATIVE)
[2021-12-30 19:19] LABS: Base Excess Venous -3.1 mmol/L; Bicarbonate Venous 21.7 mmol/L (24.0-30.0); PCO2 Venous 40.8 mmHg (38-42); pH Blood Venous 7.35 (7.34-7.37)
[2021-12-30 22:45] LABS: Source, Urine Foley catheter
[2021-12-30 22:50] LABS: Bilirubin, Urine Neg (Neg); Blood, Urine 4+ (Neg); Glucose Qualitative, Urine Neg (Neg); Ketones, Urine Neg (Neg); Leukocyte Esterase, Urine 3+ (Neg); Nitrite, Urine Neg (Neg); Protein, Urine 3+ (Neg); Urobilinogen, Urine NORM (Normal)
[2021-12-30 22:58] LABS: Appearance, Urine Cloudy (Clear); Color, Urine Yellow (P-Yellow)
[2021-12-30 23:00] LABS: Bacteria Many /hpf; Squamous Epithelial Cells Not Seen /hpf (Few); White Blood Cells, Urine TNTC /hpf (0-5)
[2021-12-30 23:01] LABS: Calcium Oxalate Crystals Few /hpf
[2021-12-31] MEDS ORDERED: ATIVAN0.5 MG PO (00:40)
[2021-12-31] MEDS ORDERED: MAGNESIUM OXID500 MG PO (00:41)
[2021-12-31] MEDS ORDERED: VITAMIN D5000 UNIT PO (00:42)
[2021-12-31] MEDS ORDERED: Vitamin B-Comp1 EACH PO (00:43)
[2021-12-31 02:19] LABS: BASOPHILS ABSOLUTE AUTO 0.03 K/mm3 (0.00-0.23); BASOPHILS PERCENT AUTO 0 % (0-2); EOSINOPHILS ABSOLUTE AUTO 0.01 K/mm3 (0.00-0.68); EOSINOPHILS PERCENT AUTO 0 % (0-6); Hematocrit 27.7 % (33.0-51.0); Hemoglobin 8.1 g/dL (11.5-16.0); IMMATURE GRAN ABSOLUTE AUTO 0.11 K/mm3 (0.00-0.10); IMMATURE GRAN PERCENT AUTO 1 % (0-1); LYMPHOCYTES ABSOLUTE AUTO 0.47 K/mm3 (0.84-5.20); LYMPHOCYTES PERCENT AUTO 3 % (21-46); MONOCYTES ABSOLUTE AUTO 0.71 K/mm3 (0.16-1.47); MONOCYTES PERCENT AUTO 4 % (4-13); Mean Corpuscular HGB 18.3 pg (26.0-34.0); Mean Corpuscular HGB Conc 29.2 g/dL (31.5-36.5); Mean Corpuscular Volume 63 fL (80-100); NEUTROPHILS ABSOLUTE AUTO 15.65 K/mm3 (1.96-9.15); NEUTROPHILS PERCENT AUTO 92 % (41-73); NRBC ABSOLUTE 0.06 K/mm3 (0.00-0.02); NRBC Auto 0.4 /100 WBC (0.0-0.2); RDW Coefficient Variation 20.4 % (11.7-14.2); RDW Standard Deviation 44.5 fL (35.1-46.3); Red Blood Cell Count 4.42 M/mm3 (3.80-5.20); White Blood Cell Count 16.98 K/mm3 (4.00-11.30)
[2021-12-31 02:38] LABS: Albumin, Blood 2.2 g/dL (3.4-5.0); Albumin/Globulin Ratio 0.5 (0.8-1.8); Bilirubin, Total 0.9 mg/dL (0.1-1.0); Bun/Creatinine Ratio 18.1 (12.0-20.0); Calcium, Blood 9.1 mg/dL (8.5-10.1); Creatinine, Blood 1.05 mg/dL (0.40-1.00); Globulin, Blood 4.1 g/dL (2.2-4.0); Magnesium, Blood 1.9 mg/dL (1.6-2.4); Percent Saturation 3.4 % (15.0-50.0); Potassium, Blood 5.2 mmol/L (3.5-5.5); Total Protein, Blood 6.3 g/dL (6.4-8.2)
[2021-12-31 03:07] LABS: Platelet Count 207 K/mm3 (150-400)
--- NOTE | 2021-12-31 06:34 | NUR ---
SHIFT SUMMARY NAVNEET ARRIVED TO UNIT AT 2145 ON VASOPRESSIN AT 0.04, LEVOPHED AT 20, EPINEPHRINE AT 3, AND 3% NS AT 30/HR. PATIENT INCONTINENT OF URINE, SO HUERTA WAS PLACED FOR ACCURATE I/O. ABLE TO WEAN ALL PRESSERS OFF BY 0300. BP STABLE REST OF SHIFT. PATIENT ALERT AND ORIENTED X4. ESPINOZA, FOLLOWS COMMANDS. VERY HARD OF HEARING. 2LNC APPLIED FOR PATIENT COMFORT. DYSPNEA ON EXERTION NOTED. PATIENT V-PACED ON THE MONITOR WITH RATE IN THE 60'S. MAINTAINING MAP OF >65 WITHOUT THE USE OF PRESSERS. BLE DUSKY WITH +1 PITTING EDEMA. PATIENT COMPLAINS OF DIARRHEA BUT NO STILL SINCE ARRIVAL TO UNIT. HUERTA CATHETER IN PLACE DRAINING TO GRAVITY. RIGHT IJ CENTRAL LINE IN PLACE. PATIENT REPORTS FEELING BETTER THAN BEFORE.
--- NOTE | 2021-12-31 10:01 | NUR ---
ASSUMED CARE REPORT FROM DOUGLAS RN. PT RESTING IN BED. WAKES c VERBAL STIMULI. A&O X 3. FOLLOWS COMMANDS. STATES SHE IS FEELING BETTER. NACL PLACED ON STANDBY AND NA LABS DRAWN AND SHIFT CHANGE. NA 124. LUNGS CLEAR. REMOVED 2L, SATS >95%. ABD OBESE, TENDER. BT X 4. GENERALIZED EDEMA, WEEPING FROM RIGHT SIDE. PT STATES THIS HAPPENS INTERMITTANTLY. HUERTA PATENT, DRAINING CLOUDY YELLOW URINE TO GRAVITY. CVC TO RIJ. DRESSING C/D/I. MULTIPLE SKIN ISSUES, SEE ASSESSMENT. WILL CONTINUE TO MONITOR.
--- NOTE | 2021-12-31 17:39 | NUR ---
SHIFT SUMMARY/TRANSFER TO PCU PT REMAINED OFF PRESSORS THIS SHIFT. MAP>65. SR, RATE 60'S. O2 REMOVED, SATS >95%. BEGAIN DIURESING THIS SHIFT, ALBUMIN ALSO GIVEN. HUERTA PATENT, KAE URINE OUT. 300 ML OUT THIS SHIFT. CONTINUES TO HAVE WEEPING EDEMA TO RIGHT ABD. REMAINS IN ISOLATION FOR GI PANEL, NO BM THIS SHIFT. ALSO NO N/V. WILL CONTINUE TO MONITOR UNTIL TRANSFER TO PCU.
--- NOTE | 2021-12-31 18:45 | NUR ---
pt arrived from icu via bed. transfered with overhead lift. pt tolerated well. aa0x4 at this time answered all questions appropriatly. r side abdomen weeping heavily, serous at this time. placed pad underneath. pt on room air sats 100%. she reports some burning around catheter, worse since cath placed. call light in reach, pt calls appropriatly. plan is to collect gi panel if patient has bowel movement. abx infusing in ij at this time.
--- NOTE | 2021-12-31 22:23 | NUR ---
CARE ASSUMPTION: PATIENT IN BED WITH DAUGHTER AT BEDSIDE. IV ABX INFUSING TO IJ SITE. PATIENT A&O X4, HUERTA DRAINING TO GRAVITY, DENIES SOB OR CHEST PAIN, NO N/V/D. BED LOW WITH CALL LIGHT IN REACH, BUT PATIENT REPORTS WEAKNESS IN HANDS AND FREQUENTLY LOSES REMOTE. FREQUENT ROUNDING PERFORMED.
[2022-01-01 04:18] LABS: Hematocrit 23.8 % (33.0-51.0); Mean Corpuscular HGB 18.2 pg (26.0-34.0); Mean Corpuscular HGB Conc 29.4 g/dL (31.5-36.5); Mean Corpuscular Volume 62 fL (80-100); NRBC ABSOLUTE 0.07 K/mm3 (0.00-0.02); NRBC Auto 0.4 /100 WBC (0.0-0.2); RDW Coefficient Variation 20.3 % (11.7-14.2); RDW Standard Deviation 43.8 fL (35.1-46.3); Red Blood Cell Count 3.84 M/mm3 (3.80-5.20); White Blood Cell Count 17.82 K/mm3 (4.00-11.30)
[2022-01-01 04:26] LABS: Platelet Count 260 K/mm3 (150-400)
[2022-01-01 04:40] LABS: Albumin, Blood 2.4 g/dL (3.4-5.0); Anion Gap 9 mmol/L (6-16); Blood Urea Nitrogen 22 mg/dL (8-24); Bun/Creatinine Ratio 17.2 (12.0-20.0); CO2, Blood 22 mmol/L (21-32); Chloride, Blood 92 mmol/L (98-108); Creatinine, Blood 1.28 mg/dL (0.40-1.00); Glomerular Filtration Rate 45 (60-); Glucose, Blood 108 mg/dL (70-99); Phosphorus, Blood 3.4 mg/dL (2.5-4.9); Sodium, Blood 123 mmol/L (136-145)
--- NOTE | 2022-01-01 06:34 | NUR ---
SHIFT SUMMARY: PATIENT MAP >65, O2 SAT >94% RA, AND HR WNL. PATIENT A&O TO SELF, PLACE, AND FAMILY MEMBER. PATIENT IS VERY WEAK AND HAS DIFFICULTY RAISING ARMS, REQUIRING ASSISTANCE WITH GETTING DRINKS AND PILL CUPS TO HER MOUTH. HUERTA DRAINING KAE URINE TO GRAVITY. CALL PLACED TO RESIDENT R/T HGB 7.0 THIS AM - NEW ORDERS FOR REPEAT H&H AT 0900. NO SIGNS OF ACTIVE BLEED AT THIS TIME. NO ACUTE EVENTS OVERNIGHT. BED LOW WITH CALL LIGHT IN REACH. WILL REPORT TO ONCOMING RN.
--- NOTE | 2022-01-01 08:00 | NUR ---
Initial Assessment: Patient is resting with eyes closed, resp e/u. Pt easily awakens with verbal stimuli. She is oriented. She reports 4/10 neck pain. She report chronic numbness to her finger tips and BLE, she states she cannot feel her feet. HR Irreg, A-Fib in the 60s at rest, while moving around rate comes up into the 70s. Patient has occasional pacer spikes, per noc shift RN patient has one faulty lead. LS DIM T/O, biox low 90s on RA, biox increases with coughing and clearing. BT +. Pt is morbidly obese-has not had a BM since admission, will check for bowel care protocol. PPP. Patient has 2-3+ pitting edema to BLE and lower sides of her ABD-some weeping noted to her ABD. She has some scratches noted to her right upper arm. VSS. Patient is assisted to the edge of the bed wtih 2 person assist. Patient is nervous about standing because she got stuck at home in bed and the sales administration manager had to get her up. She was able to stand with a 2 person assist with a gait belt and FWW. She was able to take a few steps to the recliner. She is very anixous when standing-constantly stating, "I can't do it." She is concerned her knees will buckle. Pt does state at baseline she is able to use a walker at home. Call light in reach.
[2022-01-01 09:36] LABS: Hematocrit 24.6 % (33.0-51.0); Hemoglobin 7.1 g/dL (11.5-16.0)
--- NOTE | 2022-01-01 12:30 | NUR ---
UPdate: Daughter called and provided update. Patient has been resting comfortably. She is repositioned to her left side. VSS. PT/OT orders placed. Powerglide placed, CL being removed. Patient medicated for pain with tylenol. Patient denies other needs at this time. Call light in reach.
--- NOTE | 2022-01-01 16:00 | NUR ---
Update: Patient is resting with eyes closed. Resp E/U. Blood pressure was a litte soft earlier with a MAP of 68, it has improved with a MAP of 70. Lasix and IV ABX given. Patient refused to work with OT earlier today stating she was too tired. PT came around to see the patient, she was able to stand with a 2 person assist but sat back down after a minute or so and stated she couldn't do anymore. Pt initially told RN she didn't want to work with any therpy, this RN encouraged her to work with PT to regain her strength. Patient denies other needs at this time. Call light in reach.
--- NOTE | 2022-01-01 17:39 | NUR ---
Summary: Patient is alert and oriented. She has chronic neuropathy with her finger tips and BLE numb-she recieves Neurontin for this. She C/O 8/10 neck and coccyx pain, this was relieved with Tylenol. HR was SR at the start of the shift and she converted to A-Fib around 9am-MD notified, new orders for low dose Metoprolol ordered. Rate has been in the 70s at rest and low 100s with activity. She has an ICD/Pacemaker with a "faulty lead." She has been rarely paced. LS DIM T/O, Biox has been above 90% on RA. PT has a PC with minimal amounts of rasmussen sputum. BT+. She has edema to ABD that has been leaking fluid. Wound to coccyx with Mepilex in place. She has some healing scratches to her right shoulder. CL removed from the right neck today, powerglide placed to ZEYAD. Patient has required alot of motiviational converstaions to get OOB and participate in ADLs. She was able to get OOB to the chair and the commode. She was only willing to stand with therapy. Daughter states the patient "works herself into anxiety attacks at home during transfers." No acute changes this shift. Will report to oncoming RN.
[2022-01-02 04:24] LABS: Hematocrit 22.2 % (33.0-51.0); Hemoglobin 6.7 g/dL (11.5-16.0); Mean Corpuscular HGB 18.9 pg (26.0-34.0); Mean Corpuscular HGB Conc 30.2 g/dL (31.5-36.5); Mean Corpuscular Volume 63 fL (80-100); NRBC ABSOLUTE 0.06 K/mm3 (0.00-0.02); NRBC Auto 0.6 /100 WBC (0.0-0.2); RDW Coefficient Variation 20.2 % (11.7-14.2); RDW Standard Deviation 44.7 fL (35.1-46.3); Red Blood Cell Count 3.55 M/mm3 (3.80-5.20); White Blood Cell Count 10.39 K/mm3 (4.00-11.30)
[2022-01-02 04:28] LABS: Mean Platelet Volume 8.9 fL (9.1-12.4)
[2022-01-02 04:43] LABS: Albumin, Blood 2.7 g/dL (3.4-5.0); Anion Gap 11 mmol/L (6-16); Blood Urea Nitrogen 25 mg/dL (8-24); Bun/Creatinine Ratio 17.9 (12.0-20.0); CO2, Blood 22 mmol/L (21-32); Calcium, Blood 8.9 mg/dL (8.5-10.1); Chloride, Blood 92 mmol/L (98-108); Glomerular Filtration Rate 40 (60-); Glucose, Blood 83 mg/dL (70-99); Phosphorus, Blood 2.9 mg/dL (2.5-4.9); Platelet Count 210 K/mm3 (150-400); Potassium, Blood 4.3 mmol/L (3.5-5.5); Sodium, Blood 125 mmol/L (136-145)
--- NOTE | 2022-01-02 06:02 | NUR ---
SHIFT SUMMARY: PATIENT DENIES SOB OR CHEST PAIN. VS WNL ON RA. HUERTA DRAINING KAE URINE TO GRAVITY. Q2 REPOSITIONING. MEDICATED PER EMAR. PATIENT HGB 6.7 THIS AM, CALL PLACED TO DR. BARRIENTOS AND RECEIVED NEW ORDERS FOR 1U PRBCS TO BE TRANSFUSED. NO ACUTE EVENTS THIS SHIFT. BED LOW WITH CALL LIGHT IN REACH. WILL CONTINUE TO MONITOR AND REPORT TO ONCOMING RN.
--- NOTE | 2022-01-02 07:30 | NUR ---
Initial Assessment: Patient is sitting up in bed watching TV. She is alert and oriented. She reports some soreness to her right neck where her central line was pulled. There is some swelling and bruising noted, this was present yesterday-will discuss with today. She still has some generalized weakness. Good movement of her BUE but minimal movement of her BLE-she does have 2-3+ pitting edema to BLE. HR irreg, she is still in A-Fib with a rate in the 80s. LS DIM in T/O, biox WNL on RA. BT+. Right side of her abdomen continues to weep along with her right upper thigh. BLE-3+ pitting edema to the RLE and 2+ to the LLE. AM medications given a few at a time with sips of water. VSS at this time. Call light in reach. Will continue to monitor.
--- NOTE | 2022-01-02 11:30 | NUR ---
Update: VSS. PRBCs continue to infuse without difficulty. Assessment unchanged. Patient is resting comfortably at this time. Call light in reach.
[2022-01-02 12:06] LABS: Source, Urine Foley catheter
[2022-01-02 12:21] LABS: Appearance, Urine Cloudy (Clear); Bilirubin, Urine Neg (Neg); Blood, Urine 5+ (Neg); Color, Urine Yellow (P-Yellow); Glucose Qualitative, Urine Neg (Neg); Ketones, Urine Neg (Neg); Leukocyte Esterase, Urine 3+ (Neg); Nitrite, Urine Neg (Neg); Protein, Urine 3+ (Neg); Specific Gravity, Urine 1.015 (1.003-1.022); Urobilinogen, Urine NORM (Normal)
[2022-01-02 12:37] LABS: Bacteria Mod /hpf; Calcium Oxalate Crystals Few /hpf; Red Blood Cells, Urine TNTC /hpf (0-2); Squamous Epithelial Cells Rare /hpf (Few); Transitional Epithelial Cells Few /hpf (0-Rare); White Blood Cells, Urine 50-100 /hpf (0-5)
--- NOTE | 2022-01-02 18:35 | NUR ---
Summary: Patient has been alert and oriented T/O the shift. Attempts to work with PT and OT this shift were not very successful, pt stated she was too tired and was havign trouble lifting/moving her legs in bed. She needs to be encouraged to participate in ADLs. No C/O pain at this time. HR IRREG,A-Fib in the 80s at rest. LS Dim in T/O. Biox has been WNL on RA. Pt continues to have weeping from her abd and right upper thigh-air flow chux in place. Mepilex on coccyx, pt was repositioned Q2. She continues to have 2-3+ pitting edme to BLE. VSS. 1 U PRBCs infused for H/H 10/30. Pond cath patent and draining, pt is duresing well. Pt did not have BM today. No acute changes this shift. Will report to oncoming RN.
--- NOTE | 2022-01-02 19:34 | NUR ---
CARE ASSUMPTION: PATIENT EATING DINNER IN BED. NS INFUSING TO PHU 20G, ALBUMIN COMPLETE TO PG ZEYAD. PATIENT HAVING DIFFIULTY WITH SILVERWARE SO THIS RN WRAPPED WITH COBAN. PATIENT ATE VERY LITTLE OF DINNER AND A FEW SIPS OF SUPPLEMENT SHAKE. HUERTA DRAINING KAE URINE TO GRAVITY. FORMER IJ SITE BRUISED BUT NOT SWOLLEN. BED LOW WITH CALL LIGHT IN REACH.
[2022-01-03 04:41] LABS: BASOPHILS ABSOLUTE AUTO 0.04 K/mm3 (0.00-0.23); BASOPHILS PERCENT AUTO 0 % (0-2); EOSINOPHILS ABSOLUTE AUTO 0.39 K/mm3 (0.00-0.68); EOSINOPHILS PERCENT AUTO 4 % (0-6); Hematocrit 26.3 % (33.0-51.0); Hemoglobin 7.9 g/dL (11.5-16.0); IMMATURE GRAN ABSOLUTE AUTO 0.19 K/mm3 (0.00-0.10); IMMATURE GRAN PERCENT AUTO 2 % (0-1); LYMPHOCYTES ABSOLUTE AUTO 1.63 K/mm3 (0.84-5.20); LYMPHOCYTES PERCENT AUTO 16 % (21-46); MONOCYTES PERCENT AUTO 7 % (4-13); Mean Corpuscular HGB 19.6 pg (26.0-34.0); Mean Corpuscular Volume 65 fL (80-100); NEUTROPHILS ABSOLUTE AUTO 7.37 K/mm3 (1.96-9.15); NEUTROPHILS PERCENT AUTO 71 % (41-73); NRBC ABSOLUTE 0.04 K/mm3 (0.00-0.02); NRBC Auto 0.4 /100 WBC (0.0-0.2); RDW Coefficient Variation 22.6 % (11.7-14.2); RDW Standard Deviation 49.5 fL (35.1-46.3); Red Blood Cell Count 4.04 M/mm3 (3.80-5.20); White Blood Cell Count 10.32 K/mm3 (4.00-11.30)
[2022-01-03 04:43] LABS: Mean Platelet Volume 8.8 fL (9.1-12.4); Platelet Count 187 K/mm3 (150-400)
[2022-01-03 05:03] LABS: Albumin, Blood 2.8 g/dL (3.4-5.0); Albumin/Globulin Ratio 0.8 (0.8-1.8); Bun/Creatinine Ratio 17.1 (12.0-20.0); Calcium, Blood 8.7 mg/dL (8.5-10.1); Creatinine, Blood 1.29 mg/dL (0.40-1.00); Globulin, Blood 3.3 g/dL (2.2-4.0); Potassium, Blood 4.2 mmol/L (3.5-5.5); Total Protein, Blood 6.1 g/dL (6.4-8.2)
--- NOTE | 2022-01-03 06:50 | NUR ---
SHIFT SUMMARY: PATIENT DENIES SOB OR CHEST PAIN. MAP >65, AFEBRILE, STABLE ON RA. PATIENT STILL VERY WEAK BUT DID ATTEMPT TO STAND TO TRANSFER TO [facility] [place]. TRANSFER WAS UNSUCCESSFUL THOUGH SHE WAS ABLE TO SIT ON EDGE OF BED FOR >10 MIN AND [id number] X3. VERBALIZES UNDERSTANDING THAT SHE NEEDS TO EXERCISE HER MUSCLES TO PREVENT FURTHER ATROPHY. PATIENT WAS SWEATY OR WET FROM CELLULITIS THIS AM - GAVE BED BATH AND CHANGED ABD PADS AND GOWN. TAKES PO MEDS BEST WITH APPLESAUCE. OCCASIONALLY LOSES CALL LIGHT AND WILL CALL OUT FOR HELP. MAKES NEEDS KNOWN AND PLEASANT. BED LOW WITH CALL LIGHT IN REACH. WILL REPORT TO ONCOMING RN.
--- NOTE | 2022-01-03 17:33 | NUR ---
SHIFT SUMMARY: PT ALERT AND ORIENTED X4, ABLE TO FOLLOW COMMANDS AND MAKE NEEDS KNOWN. BP AND HR STABLE. SATING >95% ON RA, AFEBRILE. PT WORKED WITH PT/OT THIS MORNING. ABLE TO SIT ON SIDE OF BED, HOWEVER, WAS TIRED EASILY. PHYSICAL THERAPY CURRENTLY RECOMMENDING CEILING LIFT FOR ADL'S. HUERTA CATHETER IN PLACE DRAINING KAE COLORED URINE TO GRAVITY. APPROX 1100 OF URINARY OUTPUT THIS SHIFT. PT HAD 1 LARGE BM. BEDBATH COMPLETED THIS AFTERNOON. PT CURRENTLY SLEEPING, BED IN LOW, CALL LIGHT IN REACH, WILL REPORT TO ONCOMING RN.
[2022-01-04 04:23] LABS: Hematocrit 28.7 % (33.0-51.0); Hemoglobin 8.5 g/dL (11.5-16.0); Mean Corpuscular HGB 19.8 pg (26.0-34.0); Mean Corpuscular HGB Conc 29.6 g/dL (31.5-36.5); Mean Corpuscular Volume 67 fL (80-100); NRBC ABSOLUTE 0.03 K/mm3 (0.00-0.02); NRBC Auto 0.3 /100 WBC (0.0-0.2); RDW Coefficient Variation 23.9 % (11.7-14.2); RDW Standard Deviation 52.4 fL (35.1-46.3); Red Blood Cell Count 4.29 M/mm3 (3.80-5.20); White Blood Cell Count 10.27 K/mm3 (4.00-11.30)
--- NOTE | 2022-01-04 04:42 | NUR ---
SHIFT SUMMARY NO ACUTE CHANGES THIS SHIFT. AXO. VSS. REMAINS IN AFIB, RATE CONTROLLED, ON RA WITH DIM LUNG SOUNDS T/O. HUERTA PATENT AND DRAINING. PT UP TO BSC THIS SHIFT VIA LIFT. STAFF ENCOURAGING PT TO PARTICIPATE IN MUCH OF CARE POSSIBLE. PT AGREEABLE MOSTLY BUT NEEDS ALOT OF PROMPTING TO DO SO. BM THIS SHIFT. PT BEING TURNED BY STAFF. POWERGLIDE PATENT AND DRAWS. OTHERWISE, PT RESTING IN BED.
[2022-01-04 04:43] LABS: Mean Platelet Volume 8.5 fL (9.1-12.4); Platelet Count 164 K/mm3 (150-400)
[2022-01-04 04:46] LABS: Albumin, Blood 3.1 g/dL (3.4-5.0); Anion Gap 9 mmol/L (6-16); Blood Urea Nitrogen 23 mg/dL (8-24); Bun/Creatinine Ratio 20.2 (12.0-20.0); CO2, Blood 26 mmol/L (21-32); Calcium, Blood 8.7 mg/dL (8.5-10.1); Chloride, Blood 92 mmol/L (98-108); Creatinine, Blood 1.14 mg/dL (0.40-1.00); Glomerular Filtration Rate 51 (60-); Glucose, Blood 113 mg/dL (70-99); Phosphorus, Blood 2.5 mg/dL (2.5-4.9); Potassium, Blood 3.8 mmol/L (3.5-5.5); Sodium, Blood 127 mmol/L (136-145)
--- NOTE | 2022-01-04 14:20 | NUR ---
PATIENT TRANSFERRED FROM PCU, PATIENT SLOW WITH SPEECH, MAKES NEEDS KNOWN, VSS, IN NO DISTRESS, DENIES PAIN PRESENTLY, HUERTA TO GRAVITY, CALL LIGHT WITH IN REACH, WCTM
--- NOTE | 2022-01-04 18:29 | NUR ---
ALERT AND OREINTED, SLOW TO RESPOND, MAKES NEEDS KNOWN. TRANSFERRED FROM PCU 4AT 1415. PT/OT WORKING WITH PATIENT STANDING, LIFT PATIENT. HUERTA TO GRAVITY CLEAR YELLOW URINE. CONTINENT OF BM, SMALL SKIN BREAKDOWN ON COCCYX MEPILEX IN PLACE. TELE AFIB AND PACED, MARIO ALBERTO HINTON. 1 LITER FLUID RESTRICTIONS. CELLULITIS ON ABD AND LOWER EXTREMITIES IMPROVING. LS DIMINISHED. CALL LIGHT WITH IN REACH, WCTM
--- NOTE | 2022-01-05 05:16 | NUR ---
SHIFT SUMMARY AOX4, SLOW TO RESPOND TO QUESTIONS. FOLLOWS DIRECTIONS & ANSWERS APPROPRIATELY. VSS. TELE AFIB c OCCASIONAL PACE HR 75. REPORTS ONLY CHRONIC PAIN IN BLE FROM NEUROPATHY & TOOK HS GABAPENTIN. DENIES N/V OR DYSPNEA. BLADDER TRAINING STARTED AT 01/05, TO ASSIST c HUERTA REMOVAL. HUERTA PATENT & HAS KAE COLOR URINE c SMALL AMOUNT SEDIMENT. CALL LIGHT IN REACH & PT ABLE TO MAKE NEEDS KNOWN, WILL MONITOR.
[2022-01-05 09:27] LABS: Albumin, Blood 3.4 g/dL (3.4-5.0); Anion Gap 8 mmol/L (6-16); Blood Urea Nitrogen 21 mg/dL (8-24); Bun/Creatinine Ratio 18.9 (12.0-20.0); CO2, Blood 25 mmol/L (21-32); Calcium, Blood 8.9 mg/dL (8.5-10.1); Chloride, Blood 95 mmol/L (98-108); Creatinine, Blood 1.11 mg/dL (0.40-1.00); Glomerular Filtration Rate 53 (60-); Glucose, Blood 82 mg/dL (70-99); Phosphorus, Blood 2.2 mg/dL (2.5-4.9); Potassium, Blood 3.8 mmol/L (3.5-5.5); Sodium, Blood 128 mmol/L (136-145)
--- NOTE | 2022-01-05 16:52 | NUR ---
SHIFT SUMMARY- PT HAS HAD NO ACUTE CHANGE T/O THE SHIFT. BP HAS BEEN A LITTLE SOFT IN THE LOW 100'S SPOKE TO DR JACOBS ABOUT PARAMETERS FOR THE IV LAISX. PARAMETERS RECIEVED TO HOLD FOR SBP LESS THAN 90. PT IS A LIFT PT AND HAS TID LASIX, SHE DECLINES REPOSITIONING OFF AND ON. PT HAS A HUERTA IN PLACE. SPOKE TO DR JACOBS THIS AFTERNOON. PT SEEMS TO HAVE NO SNESATION OF NEEDING TO GO TO THE BATHROOM WITH THE BLADDER TRAINING, SHE IS A LIFT PT AND HAS TID IV LASIX. PER DR JACOBS STAFF SHOULD CONTINUE BLADDER TRAINING AND ATTEMPT TO REMOVE THE HUERTA TOMORROW. WILL PASS ON TO NIGHT RN IN BEDSIDE REPORT. PT IN BED, CALL LIGHT IN REACH, PT ON A FLUID RESTRICTION 1000ML, STRICT I&O, NO S&S OF DISTRESS NOTED WILL CTM.
--- NOTE | 2022-01-06 04:45 | NUR ---
SHIFT SUMMARY NO ACUTE CHANGES TO PT CONDITION. BLADDER TRAINING IN PROGRESS. PT CURRENTLY HAS NO COMPLAINTS. PT SLEEPING MOST OF THE NIGHT. CALL LIGHT IS WITHIN HER REACH.
[2022-01-06 08:58] LABS: Albumin, Blood 3.3 g/dL (3.4-5.0); Anion Gap 11 mmol/L (6-16); Blood Urea Nitrogen 22 mg/dL (8-24); Bun/Creatinine Ratio 21.4 (12.0-20.0); CO2, Blood 24 mmol/L (21-32); Calcium, Blood 8.6 mg/dL (8.5-10.1); Chloride, Blood 96 mmol/L (98-108); Creatinine, Blood 1.03 mg/dL (0.40-1.00); Glomerular Filtration Rate 58 (60-); Glucose, Blood 82 mg/dL (70-99); Phosphorus, Blood 2.5 mg/dL (2.5-4.9); Potassium, Blood 3.9 mmol/L (3.5-5.5); Sodium, Blood 131 mmol/L (136-145)
--- NOTE | 2022-01-06 19:23 | NUR ---
SHIFT SUMMARY PT AxOx4, COOPERATIVE WITH KHARI. CAMPOS. PT WORKED WITH PHYSICAL THERAPY THIS SHIFT. PT ON 1000L FLUID RESTRICTION. REDNESS TO GROIN AND UNDER PANUS FOLDS- CLEANED AND POWDER APPLIED. PER FIREWALL ADMINISTRATOR, TELE RUNNING AFIB AT 89, PACED. PT HUERTA CATH DC'D AT APPROX 1200. PT WAS ABLE TO SPONTANEOUSLY VOID AFTER HUERTA DC'D. PT IS EXPECTING TO DC HOME WITH NEW HOME HEALTH EVAL. PT IS CURRENTLY RESTING IN BED WITH CALL LIGHT IN REACH. PT DENIES NEEDS AT THIS TIME.
--- NOTE | 2022-01-07 04:40 | NUR ---
SHIFT SUMMARY NO ACUTE CHANGES THIS SHIFT. AOX3-SLOW TO RESPOND TO ALL QUESTIONS, HOWEVER ANSWERS APPROPRIATE & ABLE TO FOLLW DIRECTIONS. VSS. TELE AFIB c PACED BEAT @95. DENIES PAIN, N/V OR DYSPNEA. +2 EDEMA & REDNESS ON BLE & PANNUS. R SIDE PANNUS WEEPING MOD AMOUNT SEROUS DRAINAGE. DEANNA AADMS'D YESTERDAY & PT HAS VOIDED AT LEAST 2X TONIGHT USING BEDPAN. CALL LIGHT IN REACH & PT ABLE TO MAKE NEEDS KNOWN, WILL MONITOR.
[2022-01-07 06:06] LABS: Albumin, Blood 3.5 g/dL (3.4-5.0); Anion Gap 9 mmol/L (6-16); Blood Urea Nitrogen 22 mg/dL (8-24); Bun/Creatinine Ratio 20.2 (12.0-20.0); CO2, Blood 25 mmol/L (21-32); Calcium, Blood 8.9 mg/dL (8.5-10.1); Chloride, Blood 97 mmol/L (98-108); Creatinine, Blood 1.09 mg/dL (0.40-1.00); Glomerular Filtration Rate 54 (60-); Glucose, Blood 87 mg/dL (70-99); Phosphorus, Blood 2.5 mg/dL (2.5-4.9); Potassium, Blood 4.1 mmol/L (3.5-5.5); Sodium, Blood 131 mmol/L (136-145)
[2022-01-07] MEDS ORDERED: KLOR-CON 1010 ME8 PO (11:38)
[2022-01-07] MEDS ORDERED: FURO40 PO (11:38)
[2022-01-07] MEDS ORDERED: MICONAZOLE NIT130 GM TOP (11:43)
[2022-01-07] MEDS ORDERED: PANT40 PO (11:47)
[2022-01-07] MEDS ORDERED: SODCHL1 PO (11:49)
[2022-01-07] MEDS ORDERED: VISBIOME 112.51 EACH PO (11:50)
--- NOTE | 2022-01-07 14:25 | NUR ---
DISCHARGE SUMMARY PATIENT DISCHARGED HOME WITH HOME HEALTH. DISCHARGE PAPERWORK REVIEWED WITH PATIENT AND ALL QUESTIONS ANSWERED. PRESCRIPTIONS FAXED TO PATIENTS PREFERRED PHARMACY. IVS AND TELE D/C'D. PATIENT AND ALL BELONGINGS TAKEN HOME VIA GURNEY TRANSPORT.
== END 2022-01-07 13:40 | disposition home health service (06) | DRG 871 ==
LOC: ER 15:44 → PCU 21:12 → ICUW 21:12 → PCU 12-31 17:59 → MEDS 01-04 12:44
PROVIDERS: Family Medicine; Internal Medicine; Nurse Practitioner Acute Care; Student in an Organized Health Care Education/Training Program; ADMIT Internal Medicine
PROC: 3E03329 Introduction of Other Anti-infective into Peripheral Vein, Percutaneous Approach (ICD-10-PCS; principal; 2021-12-30)
PROC: 3E033XZ Introduction of Vasopressor into Peripheral Vein, Percutaneous Approach (ICD-10-PCS; 2021-12-30)
PROC: 30233N1 Transfusion of Nonautologous Red Blood Cells into Peripheral Vein, Percutaneous Approach (ICD-10-PCS; 2022-01-02)
DX: A41.9 Sepsis, unspecified organism (principal); I50.33 Acute on chronic diastolic (congestive) heart failure; R65.21 Severe sepsis with septic shock; R57.1 Hypovolemic shock; J81.0 Acute pulmonary edema; N39.0 Urinary tract infection, site not specified; E87.1 Hypo-osmolality and hyponatremia; Z68.42 Body mass index [BMI] 45.0-49.9, adult; I13.0 Hypertensive heart and chronic kidney disease with heart failure and stage 1 through stage 4 chronic kidney disease, or unspecified chronic kidney disease; Z20.822 Contact with and (suspected) exposure to COVID-19; G89.29 Other chronic pain; M54.9 Dorsalgia, unspecified; G62.9 Polyneuropathy, unspecified; G43.909 Migraine, unspecified, not intractable, without status migrainosus; E66.9 Obesity, unspecified; N18.30 Chronic kidney disease, stage 3 unspecified; D63.1 Anemia in chronic kidney disease; D50.9 Iron deficiency anemia, unspecified; I48.0 Paroxysmal atrial fibrillation; I27.20 Pulmonary hypertension, unspecified; I07.1 Rheumatic tricuspid insufficiency; E83.42 Hypomagnesemia; F41.9 Anxiety disorder, unspecified; L30.4 Erythema intertrigo; B37.2 Candidiasis of skin and nail; Z96.641 Presence of right artificial hip joint; Z90.710 Acquired absence of both cervix and uterus; Z95.0 Presence of cardiac pacemaker; Z88.6 Allergy status to analgesic agent; Z88.8 Allergy status to other drugs, medicaments and biological substances; Z79.01 Long term (current) use of anticoagulants; Z79.899 Other long term (current) drug therapy
CPT/HCPCS: 0241U; 36415; 36430; 36556; 51701; 51703; 71045; 71260; 80053; 80069; 81001; 82330; 82533; 82570; 82728; 82803; 83540; 83550; 83605; 83735; 83880; 83930; 84295; 84300; 84443; 84484; 85014; 85018; 85025; 85027; 86850; 86900; 86901; 86923; 87040; 87086; 93005; 93010; 93306; 94760; 96361-59; 96365-59; 96366-59; 96368; 96375-59; 97110; 97112; 97162; 97166; 97530; 99291-25; A9270; C1751; C9113; J0171; J1100; J1650; J1720; J1940; J2543; J2916; J3370; J3475; J7030; J7050; J7060; P9016; P9047; Q9967

== ENCOUNTER → 2022-05-22 | Outpatient (CLI) | payer OTHER ==
[~2022-05-22] MED LIST changes: +ATIVAN0.5 MG PO; +KLOR-CON 1010 ME8 PO; +MICONAZOLE NIT130 GM TOP; +PANT40 PO; +SODCHL1 PO; +VITAMIN D5000 UNIT PO; +Vitamin B-Comp1 EACH PO
[2022-05-22 19:12] LABS: BASOPHILS ABSOLUTE AUTO 0.06 K/mm3 (0.00-0.23); BASOPHILS PERCENT AUTO 1 % (0-2); EOSINOPHILS ABSOLUTE AUTO 0.22 K/mm3 (0.00-0.68); EOSINOPHILS PERCENT AUTO 3 % (0-6); Hematocrit 39.2 % (33.0-51.0); IMMATURE GRAN ABSOLUTE AUTO 0.02 K/mm3 (0.00-0.10); IMMATURE GRAN PERCENT AUTO 0 % (0-1); LYMPHOCYTES ABSOLUTE AUTO 1.69 K/mm3 (0.84-5.20); LYMPHOCYTES PERCENT AUTO 23 % (21-46); MONOCYTES ABSOLUTE AUTO 0.91 K/mm3 (0.16-1.47); MONOCYTES PERCENT AUTO 12 % (4-13); Mean Corpuscular HGB 25.5 pg (26.0-34.0); Mean Corpuscular HGB Conc 33.2 g/dL (31.5-36.5); Mean Corpuscular Volume 77 fL (80-100); NEUTROPHILS ABSOLUTE AUTO 4.43 K/mm3 (1.96-9.15); NEUTROPHILS PERCENT AUTO 60 % (41-73); RDW Standard Deviation 47.6 fL (35.1-46.3); White Blood Cell Count 7.33 K/mm3 (4.00-11.30)
[2022-05-22 21:14] LABS: Free Thyroxine 1.63 ng/dL (0.70-1.60); Magnesium, Blood 1.9 mg/dL (1.6-2.4); Percent Saturation 10.9 % (15.0-50.0)
[2022-05-22 21:16] LABS: Albumin, Blood 2.7 g/dL (3.4-5.0); Albumin/Globulin Ratio 0.6 (0.8-1.8); Bilirubin, Total 0.7 mg/dL (0.1-1.0); Bun/Creatinine Ratio 22.8 (12.0-20.0); Calcium, Blood 9.3 mg/dL (8.5-10.1); Creatinine, Blood 0.7 mg/dL (0.40-1.00); Globulin, Blood 4.9 g/dL (2.2-4.0); Potassium, Blood 2.9 mmol/L (3.5-5.5); Thyroid Stimulating Hormone 0.169 uIU/mL (0.360-4.800); Total Protein, Blood 7.6 g/dL (6.4-8.2)
== END | disposition home or self-care (01) ==
LOC: LAB SHORT 16:30
PROVIDERS: Nurse Practitioner Family
DX: I50.32 Chronic diastolic (congestive) heart failure (principal); I48.91 Unspecified atrial fibrillation; E83.42 Hypomagnesemia
CPT/HCPCS: 80053; 82728; 83540; 83550; 83735; 84439; 84443; 85025

== ENCOUNTER → 2022-06-03 | Outpatient (CLI) | payer OTHER ==
[2022-06-03 20:35] LABS: Albumin, Blood 2.6 g/dL (3.4-5.0); Albumin/Globulin Ratio 0.6 (0.8-1.8); Bilirubin, Total 0.3 mg/dL (0.1-1.0); Bun/Creatinine Ratio 16.6 (12.0-20.0); Calcium, Blood 9.4 mg/dL (8.5-10.1); Creatinine, Blood 0.85 mg/dL (0.40-1.00); Globulin, Blood 4.5 g/dL (2.2-4.0); Potassium, Blood 3.4 mmol/L (3.5-5.5); Total Protein, Blood 7.1 g/dL (6.4-8.2)
== END | disposition home or self-care (01) ==
LOC: LAB SHORT 15:00
PROVIDERS: Nurse Practitioner Family
DX: E87.6 Hypokalemia (principal)
CPT/HCPCS: 80053

== ENCOUNTER → 2022-10-23 | Outpatient (CLI) | payer OTHER ==
[2022-10-23 14:05] LABS: BASOPHILS ABSOLUTE AUTO 0.08 K/mm3 (0.00-0.23); BASOPHILS PERCENT AUTO 1 % (0-2); EOSINOPHILS ABSOLUTE AUTO 0.21 K/mm3 (0.00-0.68); EOSINOPHILS PERCENT AUTO 3 % (0-6); Hematocrit 41.3 % (33.0-51.0); Hemoglobin 13.5 g/dL (11.5-16.0); IMMATURE GRAN ABSOLUTE AUTO 0.03 K/mm3 (0.00-0.10); IMMATURE GRAN PERCENT AUTO 1 % (0-1); LYMPHOCYTES ABSOLUTE AUTO 1.51 K/mm3 (0.84-5.20); LYMPHOCYTES PERCENT AUTO 24 % (21-46); MONOCYTES ABSOLUTE AUTO 0.46 K/mm3 (0.16-1.47); MONOCYTES PERCENT AUTO 7 % (4-13); Mean Corpuscular HGB 26.1 pg (26.0-34.0); Mean Corpuscular HGB Conc 32.7 g/dL (31.5-36.5); Mean Corpuscular Volume 80 fL (80-100); Mean Platelet Volume 12.2 fL (9.1-12.4); NEUTROPHILS ABSOLUTE AUTO 3.97 K/mm3 (1.96-9.15); NEUTROPHILS PERCENT AUTO 63 % (41-73); NRBC ABSOLUTE 0.03 K/mm3 (0.00-0.02); NRBC Auto 0.5 /100 WBC (0.0-0.2); Platelet Count 235 K/mm3 (150-400); RDW Coefficient Variation 17.3 % (11.7-14.2); RDW Standard Deviation 49.7 fL (35.1-46.3); Red Blood Cell Count 5.18 M/mm3 (3.80-5.20); White Blood Cell Count 6.26 K/mm3 (4.00-11.30)
[2022-10-23 14:30] LABS: Thyroid Stimulating Hormone 0.356 uIU/mL (0.360-4.800)
[2022-10-23 14:31] LABS: Albumin, Blood 2.7 g/dL (3.4-5.0); Albumin/Globulin Ratio 0.6 (0.8-1.8); Bilirubin, Total 0.5 mg/dL (0.1-1.0); Bun/Creatinine Ratio 14.8 (12.0-20.0); Calcium, Blood 9.3 mg/dL (8.5-10.1); Creatinine, Blood 0.74 mg/dL (0.40-1.00); Globulin, Blood 4.7 g/dL (2.2-4.0); Potassium, Blood 3.8 mmol/L (3.5-5.5); Total Protein, Blood 7.4 g/dL (6.4-8.2)
== END | disposition home or self-care (01) ==
LOC: LAB 12:34 → LAB SHORT 12:34
PROVIDERS: Nurse Practitioner Family
DX: E11.22 Type 2 diabetes mellitus with diabetic chronic kidney disease (principal); E11.69 Type 2 diabetes mellitus with other specified complication; D50.8 Other iron deficiency anemias; E03.9 Hypothyroidism, unspecified; E87.6 Hypokalemia
CPT/HCPCS: 80053; 83036; 84443; 85025

== ENCOUNTER 2023-06-04 13:14 | Emergency (ER) | payer OTHER ==
[~2023-06-04] VITALS: Ht 172.7 cm; Wt 136.1 kg
[2023-06-04 13:50] LABS: Source, Urine Straight Cath
[2023-06-04 13:55] LABS: Appearance, Urine Hazy (Clear); Bilirubin, Urine Neg (Neg); Blood, Urine 5+ (Neg); Glucose Qualitative, Urine Neg (Neg); Ketones, Urine Neg (Neg); Leukocyte Esterase, Urine 3+ (Neg); Nitrite, Urine Neg (Neg); Protein, Urine 1+ (Neg); Urobilinogen, Urine NORM (Normal)
[2023-06-04 14:09] LABS: Color, Urine Pale Yellow (P-Yellow)
[2023-06-04 14:10] LABS: Bacteria Mod /hpf; Squamous Epithelial Cells Few /hpf (Few); White Blood Cells, Urine 25-50 /hpf (0-5)
[2023-06-04 14:11] LABS: Amorphous Light (0-Heavy); Transitional Epithelial Cells Rare /hpf (0-Rare)
[2023-06-04 14:18] LABS: Albumin, Blood 2.8 g/dL (3.4-5.0); Albumin/Globulin Ratio 0.6 (0.8-1.8); Bilirubin, Total 0.5 mg/dL (0.1-1.0); Bun/Creatinine Ratio 20.3 (12.0-20.0); Calcium, Blood 9.2 mg/dL (8.5-10.1); Creatinine, Blood 0.79 mg/dL (0.40-1.00); Globulin, Blood 4.4 g/dL (2.2-4.0); Potassium, Blood 3.5 mmol/L (3.5-5.5); Total Protein, Blood 7.2 g/dL (6.4-8.2)
[2023-06-04 14:19] LABS: BASOPHILS ABSOLUTE AUTO 0.06 K/mm3 (0.00-0.23); BASOPHILS PERCENT AUTO 1 % (0-2); EOSINOPHILS ABSOLUTE AUTO 0.25 K/mm3 (0.00-0.68); EOSINOPHILS PERCENT AUTO 4 % (0-6); Hematocrit 41.8 % (33.0-51.0); Hemoglobin 13.9 g/dL (11.5-16.0); IMMATURE GRAN ABSOLUTE AUTO 0.03 K/mm3 (0.00-0.10); IMMATURE GRAN PERCENT AUTO 1 % (0-1); LYMPHOCYTES ABSOLUTE AUTO 2.05 K/mm3 (0.84-5.20); LYMPHOCYTES PERCENT AUTO 35 % (21-46); MONOCYTES ABSOLUTE AUTO 0.39 K/mm3 (0.16-1.47); MONOCYTES PERCENT AUTO 7 % (4-13); Mean Corpuscular HGB 26.7 pg (26.0-34.0); Mean Corpuscular HGB Conc 33.3 g/dL (31.5-36.5); Mean Corpuscular Volume 80 fL (80-100); Mean Platelet Volume 12.5 fL (9.1-12.4); NEUTROPHILS ABSOLUTE AUTO 3.01 K/mm3 (1.96-9.15); NEUTROPHILS PERCENT AUTO 52 % (41-73); Platelet Count 143 K/mm3 (150-400); RDW Coefficient Variation 16.1 % (11.7-14.2); RDW Standard Deviation 46.8 fL (35.1-46.3); Red Blood Cell Count 5.21 M/mm3 (3.80-5.20); White Blood Cell Count 5.79 K/mm3 (4.00-11.30)
[2023-06-04] MEDS ORDERED: CEFP200 PO (16:21)
[2023-06-04 19:00] VITALS: BP 127/84
== END 2023-06-04 19:14 | disposition home or self-care (01) ==
LOC: ER 13:14
PROVIDERS: Student in an Organized Health Care Education/Training Program
DX: N20.9 Urinary calculus, unspecified (principal); I10 Essential (primary) hypertension; Z88.8 Allergy status to other drugs, medicaments and biological substances; Z88.5 Allergy status to narcotic agent; Z91.09 Other allergy status, other than to drugs and biological substances; Z79.899 Other long term (current) drug therapy; Z79.01 Long term (current) use of anticoagulants; Z79.890 Hormone replacement therapy; Z96.641 Presence of right artificial hip joint; Z95.0 Presence of cardiac pacemaker
CPT/HCPCS: 74177; 80053; 81001; 83690; 83735; 84484; 85025; 87077; 87086; 87186; 93005; 93010; 96365-59; 96375; 99285-25; J0696; J1885; J7030; Q9967

== ENCOUNTER 2023-09-12 21:57 | Emergency (ER) | payer OTHER ==
[~2023-09-12] VITALS: Ht 175.3 cm; Wt 136.1 kg
[~2023-09-12 21:57] MED LIST changes: -FUROSEMIDE20 MG PO; -HYDROCODONE-AC1 EA19 PO
[2023-09-12] MEDS ORDERED: HYDROCODONE-AC1 EA19 PO (22:20)
[2023-09-12] MEDS ORDERED: FUROSEMIDE20 MG PO (22:20)
[2023-09-12] MEDS ORDERED: Silver Nitr/Potassium Nitrate 1 EA APPL TOP ONE (23:55)
[2023-09-13 02:00] VITALS: BP 105/63
== END 2023-09-13 02:17 | disposition home or self-care (01) ==
LOC: ER 21:57
DX: L76.21 Postprocedural hemorrhage of skin and subcutaneous tissue following a dermatologic procedure (principal); Z88.8 Allergy status to other drugs, medicaments and biological substances; Z88.5 Allergy status to narcotic agent; Z91.048 Other nonmedicinal substance allergy status; Z79.899 Other long term (current) drug therapy; I10 Essential (primary) hypertension; I48.91 Unspecified atrial fibrillation; G43.909 Migraine, unspecified, not intractable, without status migrainosus; K21.9 Gastro-esophageal reflux disease without esophagitis; E03.9 Hypothyroidism, unspecified
CPT/HCPCS: 99283-25; A9270

== ENCOUNTER → 2023-09-12 | Outpatient (CLI) | payer OTHER ==
[~2023-09-12] MED LIST changes: +FUROSEMIDE20 MG PO; +HYDROCODONE-AC1 EA19 PO
== END ==
LOC: LAB 14:22 → LAB SHORT 14:22
DX: C44.519 Basal cell carcinoma of skin of other part of trunk (principal)
CPT/HCPCS: 88305

== ENCOUNTER 2023-10-31 10:15 | Inpatient (IN) | payer OTHER ==
[~2023-10-31] VITALS: Ht 175.3 cm; Wt 141.1 kg
[~2023-10-31 10:15] MED LIST changes: +FUROSEMIDE20 MG PO; +HYDROCODONE-AC1 EA19 PO; -KLOR-CON 1010 ME8 PO; +POTA10T PO
[2023-10-31] MEDS ORDERED: NS 1,000 ML IV SCH ×2 (10:35→11:20)
[2023-10-31] MEDS ORDERED: Morphine Sulfate 4 MG/1 ML Injection IV ONE (10:35)
[2023-10-31 11:10] LABS: BASOPHILS ABSOLUTE AUTO 0.06 K/mm3 (0.00-0.23); BASOPHILS PERCENT AUTO 1 % (0-2); EOSINOPHILS ABSOLUTE AUTO 0.09 K/mm3 (0.00-0.68); EOSINOPHILS PERCENT AUTO 1 % (0-6); Hematocrit 43.6 % (33.0-51.0); IMMATURE GRAN ABSOLUTE AUTO 0.04 K/mm3 (0.00-0.10); IMMATURE GRAN PERCENT AUTO 0 % (0-1); LYMPHOCYTES ABSOLUTE AUTO 1.54 K/mm3 (0.84-5.20); LYMPHOCYTES PERCENT AUTO 13 % (21-46); MONOCYTES ABSOLUTE AUTO 0.65 K/mm3 (0.16-1.47); MONOCYTES PERCENT AUTO 5 % (4-13); Mean Corpuscular HGB 26.7 pg (26.0-34.0); Mean Corpuscular HGB Conc 32.1 g/dL (31.5-36.5); Mean Corpuscular Volume 83 fL (80-100); NEUTROPHILS ABSOLUTE AUTO 9.82 K/mm3 (1.96-9.15); NEUTROPHILS PERCENT AUTO 81 % (41-73); RDW Standard Deviation 48.2 fL (35.1-46.3); Red Blood Cell Count 5.25 M/mm3 (3.80-5.20)
[2023-10-31 11:13] LABS: Albumin, Blood 3.2 g/dL (3.4-5.0); Albumin/Globulin Ratio 0.7 (0.8-1.8); Bilirubin, Total 1.1 mg/dL (0.1-1.0); Bun/Creatinine Ratio 13.3 (12.0-20.0); Creatinine, Blood 0.9 mg/dL (0.40-1.00); Globulin, Blood 4.4 g/dL (2.2-4.0); Magnesium, Blood 1.7 mg/dL (1.6-2.4); Total Protein, Blood 7.6 g/dL (6.4-8.2)
[2023-10-31] MEDS ORDERED: Piperacillin/Tazobactam Sod 4.5 GM in NS 100 ML IV ONE (11:25)
[2023-10-31 11:50] LABS: Platelet Count 134 K/mm3 (150-400)
[2023-10-31 12:07] LABS: Source, Urine Straight Cath
[2023-10-31 12:12] LABS: Bilirubin, Urine Neg (Neg); Blood, Urine 5+ (Neg); Glucose Qualitative, Urine Neg (Neg); Ketones, Urine Neg (Neg); Leukocyte Esterase, Urine 1+ (Neg); Nitrite, Urine Neg (Neg); Protein, Urine 2+ (Neg); Urobilinogen, Urine NORM (Normal)
[2023-10-31 12:17] LABS: Color, Urine Yellow (P-Yellow)
[2023-10-31 12:18] LABS: Appearance, Urine Hazy (Clear)
[2023-10-31 12:20] LABS: Bacteria Rare /hpf; Red Blood Cells, Urine TNTC /hpf (0-2); Squamous Epithelial Cells Rare /hpf (Few)
[2023-10-31] MEDS ORDERED: Ketorolac Tromethamine 15mg Vial IV ONE (13:55)
[2023-10-31] MEDS ORDERED: HYDROcodone 5-APAP 325 TAB PO PRN (15:50)
[2023-10-31] MEDS ORDERED: Polyethylene Glycol 3350 17 gm PO PRN (15:50)
[2023-10-31] MEDS ORDERED: Ondansetron HCl 2 MG / ML 2ML Vial IV PRN (15:55)
[2023-10-31] MEDS ORDERED: Acetaminophen 325 MG TABLET PO PRN (15:55)
[2023-10-31] MEDS ORDERED: Tamsulosin HCl 0.4 MG Cap PO SCH (16:00)
[2023-10-31] MEDS ORDERED: Potassium Chloride 20 MEQ TabCR PO ONE (16:00)
[2023-10-31] MEDS ORDERED: Ketorolac Tromethamine 30mg Vial IV PRN (16:10)
[2023-10-31] MEDS ORDERED: NS KCl 20mEq 1,000 ML IV SCH (16:30)
[2023-10-31] MEDS ORDERED: FentaNYL Citrate 50 MCG/ML 2 ML Injection IV PRN (16:35)
[2023-10-31] MEDS ORDERED: CefTRIAXone Sodium 2,000 MG in NS 100 ML IV SCH (17:00)
[2023-10-31 19:37] VITALS: BP 126/78
[2023-10-31] MEDS ORDERED: Apixaban 5 MG Tab PO SCH (21:00)
[2023-10-31] MEDS ORDERED: Docusate Sodium 100 MG Cap PO SCH (21:00)
[2023-10-31] MEDS ORDERED: Lactobacil 2-S.Thermo-Bifido 1 1 Cap PO SCH (21:00)
[2023-10-31] MEDS ORDERED: Gabapentin 300 MG Cap PO SCH (21:00)
[2023-11-01 02:50] VITALS: BP 127/56
--- NOTE | 2023-11-01 04:59 | NUR ---
NOC SHIFT SUMMARY PT ADMITTED FROM THE ER. PRESSURE/SHEARING INJURY NOTED ON ADMISSION. SEE PHOTO IN CHART. CLEANED AND APPLIED MEPILEX. TURNED EVERY 2 HOURS. RED YEAST RASH NOTED IN FOLDS. RECEIVED NEW ORDER FOR POWDER. PT IS BEDBOUND AT HOME, REQUIRING 2-3 STAFF MEMBERS TO COMPLETE PERSONAL CARES. PT HAS KIDNEY STONES, A UTI AND POSSIBLE PYELONEPHRITIS AND HAS BOUTS OF SEVERE PAIN TO HER R LOWER ABDOMEN AND BACK. RELIEVED WITH FENTANYL. IVF RUNNING, PURE WICK IN PLACE. CALL LIGHT WITHIN REACH.
[2023-11-01 05:47] LABS: Hematocrit 39.4 % (33.0-51.0); Hemoglobin 12.7 g/dL (11.5-16.0); Mean Corpuscular HGB 26.7 pg (26.0-34.0); Mean Corpuscular HGB Conc 32.2 g/dL (31.5-36.5); Mean Corpuscular Volume 83 fL (80-100); RDW Coefficient Variation 16.1 % (11.7-14.2); RDW Standard Deviation 48.6 fL (35.1-46.3); Red Blood Cell Count 4.75 M/mm3 (3.80-5.20); White Blood Cell Count 7.27 K/mm3 (4.00-11.30)
[2023-11-01] MEDS ORDERED: Levothyroxine Sodium 0.175 MG TAB PO SCH (06:00)
[2023-11-01 06:01] LABS: Bun/Creatinine Ratio 12.4 (12.0-20.0); Calcium, Blood 8.7 mg/dL (8.5-10.1); Creatinine, Blood 0.97 mg/dL (0.40-1.00); Potassium, Blood 3.2 mmol/L (3.5-5.5)
[2023-11-01 06:27] LABS: Platelet Count 126 K/mm3 (150-400)
[2023-11-01 07:22] VITALS: BP 131/75
[2023-11-01] MEDS ORDERED: Potassium Chloride 20 MEQ TabCR PO ONE (08:00)
[2023-11-01] MEDS ORDERED: Metoprolol Succinate 25 MG TABCR PO SCH (09:00)
[2023-11-01] MEDS ORDERED: Magnesium Oxide 400 MG Tab PO SCH (09:00)
[2023-11-01] MEDS ORDERED: Vitamin B Complex 1 EA Softgel PO SCH (09:00)
[2023-11-01] MEDS ORDERED: Miconazole Nitrate 2% 85 GM PWD TOP SCH (09:00)
[2023-11-01] MEDS ORDERED: Cholecalciferol 1000 Unit Tablet (=25MCG) PO SCH (09:00)
[2023-11-01 16:26] VITALS: BP 147/82
--- NOTE | 2023-11-01 18:11 | NUR ---
SHIFT SUMMARY PATIENT REPORTS BEING BEDBOUND AT BASELINE, DID NOT ATTEMPT MOBILIZATION THIS SHIFT. A/OX4. C/O HAVING SEVERAL BROKEN/PAINFUL TEETH, DENTAL HYGIENE CONSULT PLACED. PUREWICK IN PLACE THIS SHIFT. C/O FLANK/LOWER BACK PAIN, GIVEN FENTANYL AND NORCO WITH GOOD RELIEF. TOLERATING ABX WELL. POTASSIUM REPLACED THIS SHIFT. ABLE TO MAKE NEEDS KNOWN. CALL LIGHT IN REACH, CARES ONGOING.
[2023-11-01 20:16] VITALS: BP 124/66
[2023-11-02 04:10] VITALS: BP 138/80
[2023-11-02 05:38] LABS: Albumin, Blood 2.7 g/dL (3.4-5.0); Albumin/Globulin Ratio 0.7 (0.8-1.8); Bilirubin, Total 0.4 mg/dL (0.1-1.0); Bun/Creatinine Ratio 12.1 (12.0-20.0); Calcium, Blood 9.3 mg/dL (8.5-10.1); Creatinine, Blood 0.74 mg/dL (0.40-1.00); Potassium, Blood 3.8 mmol/L (3.5-5.5); Total Protein, Blood 6.7 g/dL (6.4-8.2)
--- NOTE | 2023-11-02 05:55 | NUR ---
NOC SHIFT SUMMARY PT REPORTS SHE FEELS MUCH BETTER. SHE IS ASKING ABOUT WHETHER THE MD WILL RESTART HER LASIX TODAY. WILL PASS ON TO DAY SHIFT NURSE TO SPEAK WITH MD. PT ONLY NEEDED ONE DOSE OF NORCO FOR PAIN. REPOSITIONED EVERY 2 HOURS. CALL LIGHT WITHIN REACH.
[2023-11-02 07:32] VITALS: BP 125/76
[2023-11-02] MEDS ORDERED: Furosemide 10 MG/ML 4ML Vial IV SCH (09:00)
[2023-11-02] MEDS ORDERED: Potassium Chloride 20 MEQ TabCR PO SCH (09:00)
[2023-11-02] MEDS ORDERED: NYAMYC15 G1 TOP (11:46)
[2023-11-02] MEDS ORDERED: TAMS.4ER PO (11:46)
[2023-11-02] MEDS ORDERED: MIRALAX17 GM PO (11:46)
[2023-11-02] MEDS ORDERED: CEFU500T30 PO (11:47)
[2023-11-02] MEDS ORDERED: VISBIOME 112.51 EACH PO (11:47)
--- NOTE | 2023-11-02 17:52 | NUR ---
DISCHARGE SUMMARY PATIENT DISCHARGED THIS SHIFT VIA [facility]. IV REMOVED PRIOR WITHOUT COMPLICATION. SCRIPT FOR NORCO SENT WITH PATIENT. PATIENT'S FRIEND PICKED UP MEDS FROM [facility], SENT WITH PATIENT WELL. DISCHARGE PACKET GIVEN, QUESTIONS ANSWERED, VERBALIZED UNDERSTANDING.
== END 2023-11-02 17:07 | disposition home health service (06) | DRG 872 ==
LOC: ER 10:15 → MEDS 15:44 → ENPENDDIS 11-02 11:53 → MEDS 11-02 17:07
PROVIDERS: Emergency Medicine; ADMIT Internal Medicine
DX: A41.9 Sepsis, unspecified organism (principal); E87.20 Acidosis, unspecified; N13.6 Pyonephrosis; I50.32 Chronic diastolic (congestive) heart failure; Z68.41 Body mass index [BMI] 40.0-44.9, adult; R65.20 Severe sepsis without septic shock; E87.6 Hypokalemia; I48.0 Paroxysmal atrial fibrillation; E03.9 Hypothyroidism, unspecified; I11.0 Hypertensive heart disease with heart failure; D50.9 Iron deficiency anemia, unspecified; E66.9 Obesity, unspecified; M54.9 Dorsalgia, unspecified; G43.909 Migraine, unspecified, not intractable, without status migrainosus; K21.9 Gastro-esophageal reflux disease without esophagitis; G89.4 Chronic pain syndrome; L89.151 Pressure ulcer of sacral region, stage 1; Z87.440 Personal history of urinary (tract) infections; Z88.8 Allergy status to other drugs, medicaments and biological substances; Z88.5 Allergy status to narcotic agent; Z79.899 Other long term (current) drug therapy; Z79.01 Long term (current) use of anticoagulants; Z79.890 Hormone replacement therapy; Z98.890 Other specified postprocedural states; Z95.0 Presence of cardiac pacemaker; Z90.49 Acquired absence of other specified parts of digestive tract; Z90.710 Acquired absence of both cervix and uterus; Z96.641 Presence of right artificial hip joint; Z89.421 Acquired absence of other right toe(s)
CPT/HCPCS: 36415; 74177; 76770; 80048; 80053; 81001; 83605; 83690; 83735; 83880; 84484; 85025; 85027; 87040; 87086; 93005; 93010; 96361; 96365-59; 96375; 99285-25; A9270; J0696; J1885; J1940; J2270; J2543; J3010; J3480; J7030; Q9967

== ENCOUNTER 2023-11-11 21:52 | Emergency (ER) | payer OTHER ==
[~2023-11-11] VITALS: Ht 175.3 cm; Wt 136.1 kg
[~2023-11-11 21:52] MED LIST changes: +CEFU500T30 PO; +MIRALAX17 GM PO; +NYAMYC15 G1 TOP; +TAMS.4ER PO
[2023-11-11 22:52] LABS: BASOPHILS ABSOLUTE AUTO 0.07 K/mm3 (0.00-0.23); BASOPHILS PERCENT AUTO 1 % (0-2); EOSINOPHILS ABSOLUTE AUTO 0.15 K/mm3 (0.00-0.68); EOSINOPHILS PERCENT AUTO 3 % (0-6); Hematocrit 41.2 % (33.0-51.0); Hemoglobin 13.3 g/dL (11.5-16.0); IMMATURE GRAN ABSOLUTE AUTO 0.06 K/mm3 (0.00-0.10); IMMATURE GRAN PERCENT AUTO 1 % (0-1); LYMPHOCYTES ABSOLUTE AUTO 1.59 K/mm3 (0.84-5.20); LYMPHOCYTES PERCENT AUTO 27 % (21-46); MONOCYTES ABSOLUTE AUTO 0.39 K/mm3 (0.16-1.47); MONOCYTES PERCENT AUTO 7 % (4-13); Mean Corpuscular HGB 26.8 pg (26.0-34.0); Mean Corpuscular HGB Conc 32.3 g/dL (31.5-36.5); Mean Corpuscular Volume 83 fL (80-100); NEUTROPHILS ABSOLUTE AUTO 3.71 K/mm3 (1.96-9.15); NEUTROPHILS PERCENT AUTO 62 % (41-73); RDW Coefficient Variation 15.7 % (11.7-14.2); RDW Standard Deviation 47.5 fL (35.1-46.3); Red Blood Cell Count 4.96 M/mm3 (3.80-5.20); White Blood Cell Count 5.97 K/mm3 (4.00-11.30)
[2023-11-11] MEDS ORDERED: HYDROcodone 5-APAP 325 TAB PO ONE (22:55)
[2023-11-11 23:04] LABS: Source, Urine Straight Cath
[2023-11-11 23:05] LABS: Platelet Count 168 K/mm3 (150-400)
[2023-11-11 23:09] LABS: Albumin, Blood 3.1 g/dL (3.4-5.0); Albumin/Globulin Ratio 0.7 (0.8-1.8); Bilirubin, Total 0.4 mg/dL (0.1-1.0); Bun/Creatinine Ratio 12.4 (12.0-20.0); Calcium, Blood 9.1 mg/dL (8.5-10.1); Creatinine, Blood 0.73 mg/dL (0.40-1.00); Globulin, Blood 4.3 g/dL (2.2-4.0); Potassium, Blood 3.6 mmol/L (3.5-5.5); Total Protein, Blood 7.4 g/dL (6.4-8.2)
[2023-11-11 23:23] LABS: Appearance, Urine Hazy (Clear); Bilirubin, Urine Neg (Neg); Blood, Urine 5+ (Neg); Color, Urine Yellow (P-Yellow); Glucose Qualitative, Urine Neg (Neg); Ketones, Urine Neg (Neg); Leukocyte Esterase, Urine 3+ (Neg); Nitrite, Urine Neg (Neg); Protein, Urine 3+ (Neg); Specific Gravity, Urine 1.015 (1.003-1.022); Urobilinogen, Urine NORM (Normal)
[2023-11-11 23:28] VITALS: BP 117/60
[2023-11-11 23:40] LABS: Red Blood Cells, Urine TNTC /hpf (0-2)
[2023-11-11 23:41] LABS: Amorphous Light (0-Heavy); Bacteria Mod /hpf; Squamous Epithelial Cells Few /hpf (Few)
[2023-11-11] MEDS ORDERED: Flonase 0.05% N16 GM (23:56)
== END 2023-11-12 00:33 | disposition home or self-care (01) ==
LOC: ER 21:52
PROVIDERS: Emergency Medicine
DX: R10.11 Right upper quadrant pain (principal); Z68.41 Body mass index [BMI] 40.0-44.9, adult; J32.9 Chronic sinusitis, unspecified; B97.89 Other viral agents as the cause of diseases classified elsewhere; K00.7 Teething syndrome; Z88.8 Allergy status to other drugs, medicaments and biological substances; Z88.5 Allergy status to narcotic agent; Z91.018 Allergy to other foods; Z91.048 Other nonmedicinal substance allergy status; Z79.899 Other long term (current) drug therapy; I10 Essential (primary) hypertension; I48.91 Unspecified atrial fibrillation; K21.9 Gastro-esophageal reflux disease without esophagitis; E03.9 Hypothyroidism, unspecified
CPT/HCPCS: 71045; 80053; 81001; 83605; 84484; 85025; 87086; 93005; 93010; 99285-25; A9270; P9612

== ENCOUNTER → 2023-12-02 | Outpatient (CLI) | payer OTHER ==
[~2023-12-02] MED LIST changes: +Flonase 0.05% N16 GM
[2023-12-02 18:22] LABS: Source, Urine Voided
[2023-12-02 18:57] LABS: Appearance, Urine Hazy (Clear); Bilirubin, Urine Neg (Neg); Blood, Urine 5+ (Neg); Color, Urine Yellow (P-Yellow); Glucose Qualitative, Urine Neg (Neg); Ketones, Urine Neg (Neg); Leukocyte Esterase, Urine 2+ (Neg); Nitrite, Urine Neg (Neg); Protein, Urine 2+ (Neg); Urobilinogen, Urine NORM (Normal)
[2023-12-02 19:21] LABS: Squamous Epithelial Cells Few /hpf (Few)
[2023-12-02 19:22] LABS: Amorphous Light (0-Heavy); Bacteria Mod /hpf; Other Crystals Mod /hpf
== END ==
LOC: LAB SHORT 18:18 → LAB 18:18
PROVIDERS: Nurse Practitioner Family
DX: R30.0 Dysuria (principal)
CPT/HCPCS: 81001; 87086

== ENCOUNTER → 2023-12-26 | Outpatient (CLI) | payer OTHER | LOC: LAB SHORT 10:00 → LAB 10:00 | DX: N39.46 Mixed incontinence (principal) | CPT/HCPCS: 87086 ==

== ENCOUNTER → 2023-12-30 | Outpatient (CLI) | payer OTHER | END | disposition home or self-care (01) | LOC: LAB 14:56 → LAB SHORT 14:56 | DX: N39.46 Mixed incontinence (principal) | CPT/HCPCS: 87086 ==

== ENCOUNTER → 2024-01-02 | Outpatient (CLI) | payer OTHER ==
[2024-01-02 19:03] LABS: Albumin/Globulin Ratio 0.6 (0.8-1.8); Bilirubin, Total 0.5 mg/dL (0.1-1.0); Bun/Creatinine Ratio 8.8 (12.0-20.0); Calcium, Blood 9.2 mg/dL (8.5-10.1); Creatinine, Blood 1.02 mg/dL (0.40-1.00); Globulin, Blood 5.1 g/dL (2.2-4.0); Potassium, Blood 3.3 mmol/L (3.5-5.5); Thyroid Stimulating Hormone 6.83 uIU/mL (0.360-4.800); Total Protein, Blood 8.1 g/dL (6.4-8.2)
[2024-01-02 19:18] LABS: BASOPHILS ABSOLUTE AUTO 0.06 K/mm3 (0.00-0.23); BASOPHILS PERCENT AUTO 1 % (0-2); EOSINOPHILS ABSOLUTE AUTO 0.17 K/mm3 (0.00-0.68); EOSINOPHILS PERCENT AUTO 3 % (0-6); Hematocrit 45.5 % (33.0-51.0); Hemoglobin 14.5 g/dL (11.5-16.0); IMMATURE GRAN ABSOLUTE AUTO 0.05 K/mm3 (0.00-0.10); IMMATURE GRAN PERCENT AUTO 1 % (0-1); LYMPHOCYTES ABSOLUTE AUTO 1.39 K/mm3 (0.84-5.20); LYMPHOCYTES PERCENT AUTO 23 % (21-46); MONOCYTES ABSOLUTE AUTO 0.45 K/mm3 (0.16-1.47); MONOCYTES PERCENT AUTO 8 % (4-13); Mean Corpuscular HGB 26.4 pg (26.0-34.0); Mean Corpuscular HGB Conc 31.9 g/dL (31.5-36.5); Mean Corpuscular Volume 83 fL (80-100); Mean Platelet Volume 11.9 fL (9.1-12.4); NEUTROPHILS ABSOLUTE AUTO 3.82 K/mm3 (1.96-9.15); NEUTROPHILS PERCENT AUTO 64 % (41-73); Platelet Count 204 K/mm3 (150-400); RDW Coefficient Variation 15.4 % (11.7-14.2); RDW Standard Deviation 46.6 fL (35.1-46.3); Red Blood Cell Count 5.49 M/mm3 (3.80-5.20); White Blood Cell Count 5.94 K/mm3 (4.00-11.30)
== END | disposition home or self-care (01) ==
LOC: LAB SHORT 17:50 → LAB 17:50
PROVIDERS: Nurse Practitioner Family
DX: I50.32 Chronic diastolic (congestive) heart failure (principal)
CPT/HCPCS: 80053; 84443; 85025

== ENCOUNTER → 2024-01-27 | Outpatient (CLI) | payer OTHER ==
[2024-01-27 15:55] LABS: Albumin, Blood 2.9 g/dL (3.4-5.0); Anion Gap 10 mmol/L (3-11); Blood Urea Nitrogen 10 mg/dL (8-24); Bun/Creatinine Ratio 10.8 (12.0-20.0); CO2, Blood 29 mmol/L (21-32); Calcium, Blood 8.9 mg/dL (8.5-10.1); Chloride, Blood 104 mmol/L (98-108); Creatinine, Blood 0.93 mg/dL (0.40-1.00); Glomerular Filtration Rate 65 (60-); Glucose, Blood 120 mg/dL (70-99); Phosphorus, Blood 4.2 mg/dL (2.5-4.9); Potassium, Blood 3.8 mmol/L (3.5-5.5); Sodium, Blood 139 mmol/L (136-145); Uric Acid, Blood 6.5 mg/dL (2.6-6.0)
== END ==
LOC: LAB 09:50 → LAB SHORT 09:50
PROVIDERS: Hospitalist
DX: N13.6 Pyonephrosis (principal)
CPT/HCPCS: 80069; 83970; 84550

== ENCOUNTER 2024-04-09 13:58 | Emergency (ER) | payer OTHER ==
[~2024-04-09] VITALS: Ht 175.3 cm; Wt 133.8 kg
[2024-04-09] MEDS ORDERED: LORazepam 2 MG/ML 1ML Injection IV ONE (14:20)
[2024-04-09 14:32] LABS: BASOPHILS ABSOLUTE AUTO 0.06 K/mm3 (0.00-0.23); BASOPHILS PERCENT AUTO 1 % (0-2); EOSINOPHILS ABSOLUTE AUTO 0.22 K/mm3 (0.00-0.68); EOSINOPHILS PERCENT AUTO 3 % (0-6); Hemoglobin 14.3 g/dL (11.5-16.0); IMMATURE GRAN ABSOLUTE AUTO 0.02 K/mm3 (0.00-0.10); IMMATURE GRAN PERCENT AUTO 0 % (0-1); LYMPHOCYTES ABSOLUTE AUTO 2.01 K/mm3 (0.84-5.20); LYMPHOCYTES PERCENT AUTO 29 % (21-46); MONOCYTES ABSOLUTE AUTO 0.55 K/mm3 (0.16-1.47); MONOCYTES PERCENT AUTO 8 % (4-13); Mean Corpuscular HGB 26.1 pg (26.0-34.0); Mean Corpuscular HGB Conc 31.1 g/dL (31.5-36.5); Mean Corpuscular Volume 84 fL (80-100); Mean Platelet Volume 11.4 fL (9.1-12.4); NEUTROPHILS ABSOLUTE AUTO 4.19 K/mm3 (1.96-9.15); NEUTROPHILS PERCENT AUTO 59 % (41-73); Platelet Count 143 K/mm3 (150-400); RDW Coefficient Variation 16.2 % (11.7-14.2); RDW Standard Deviation 49.9 fL (35.1-46.3); Red Blood Cell Count 5.48 M/mm3 (3.80-5.20); White Blood Cell Count 7.05 K/mm3 (4.00-11.30)
[2024-04-09 14:46] LABS: Albumin/Globulin Ratio 0.6 (0.8-1.8); Bilirubin, Total 0.3 mg/dL (0.1-1.0); Bun/Creatinine Ratio 11.9 (12.0-20.0); Calcium, Blood 8.7 mg/dL (8.5-10.1); Creatinine, Blood 1.09 mg/dL (0.40-1.00); Globulin, Blood 4.7 g/dL (2.2-4.0); Potassium, Blood 3.9 mmol/L (3.5-5.5); Total Protein, Blood 7.7 g/dL (6.4-8.2)
[2024-04-09] MEDS ORDERED: Potassium Chlo20 ME1 PO (14:46)
[2024-04-09] MEDS ORDERED: POTASSIUM CITR10 ME2 PO (14:46)
[2024-04-09] MEDS ORDERED: LORAZEPAM0.5 MG PO (14:46)
[2024-04-09] MEDS ORDERED: Synthroid200 MCG PO (14:47)
[2024-04-09 16:45] VITALS: BP 150/93
== END 2024-04-09 17:04 | disposition home or self-care (01) ==
LOC: ER 13:58
PROVIDERS: Emergency Medicine
DX: F41.0 Panic disorder [episodic paroxysmal anxiety] (principal); Z88.8 Allergy status to other drugs, medicaments and biological substances; Z88.5 Allergy status to narcotic agent; I11.0 Hypertensive heart disease with heart failure; I48.0 Paroxysmal atrial fibrillation; I50.32 Chronic diastolic (congestive) heart failure; K21.9 Gastro-esophageal reflux disease without esophagitis; E03.9 Hypothyroidism, unspecified
CPT/HCPCS: 70450; 80053; 84484; 85025; 93005; 93010; 96374-59; 99284-25; J2060

== ENCOUNTER → 2024-04-28 | Outpatient (CLI) | payer OTHER ==
[~2024-04-28] MED LIST changes: +LORAZEPAM0.5 MG PO; +POTASSIUM CITR10 ME2 PO; +Potassium Chlo20 ME1 PO; +Synthroid200 MCG PO
[2024-04-28 13:28] LABS: Source, Urine Clean Catch
[2024-04-28 18:45] LABS: Appearance, Urine Hazy (Clear); Bilirubin, Urine Neg (Neg); Blood, Urine 5+ (Neg); Color, Urine Yellow (P-Yellow); Glucose Qualitative, Urine Neg (Neg); Ketones, Urine Neg (Neg); Leukocyte Esterase, Urine 3+ (Neg); Nitrite, Urine Neg (Neg); Protein, Urine 2+ (Neg); Specific Gravity, Urine 1.015 (1.003-1.022); Urobilinogen, Urine NORM (Normal)
[2024-04-28 19:06] LABS: Bacteria Many /hpf; Red Blood Cells, Urine 50-100 /hpf (0-2); Transitional Epithelial Cells Few /hpf (0-Rare)
[2024-04-28 19:07] LABS: Squamous Epithelial Cells Mod /hpf (Few)
== END ==
LOC: LAB 12:21 → LAB SHORT 12:21 → EDSTATUS 04-26 13:50 → LAB FUT 04-26 13:50
PROVIDERS: Urology
DX: N20.0 Calculus of kidney (principal)
CPT/HCPCS: 81001; 87086

== ENCOUNTER 2024-05-25 12:59 | Emergency (ER) | payer OTHER ==
[~2024-05-25] VITALS: Ht 172.7 cm; Wt 163.3 kg
[2024-05-25] MEDS ORDERED: NS 1,000 ML IV SCH (13:55)
[2024-05-25] MEDS ORDERED: CefTRIAXone Sodium 1,000 MG in NS 50 ML IV ONE (13:55)
[2024-05-25 14:01] LABS: Source, Urine Foley catheter
[2024-05-25 14:06] LABS: Appearance, Urine Clear (Clear); Bilirubin, Urine Neg (Neg); Blood, Urine 1+ (Neg); Glucose Qualitative, Urine Neg (Neg); Ketones, Urine Neg (Neg); Leukocyte Esterase, Urine 2+ (Neg); Nitrite, Urine Neg (Neg); Protein, Urine Neg (Neg); Specific Gravity, Urine 1.005 (1.003-1.022); Urobilinogen, Urine NORM (Normal)
[2024-05-25 14:19] LABS: Color, Urine Pale Yellow (P-Yellow)
[2024-05-25 14:21] LABS: Bacteria Mod /hpf; Squamous Epithelial Cells Few /hpf (Few)
[2024-05-25 14:53] LABS: BASOPHILS ABSOLUTE AUTO 0.05 K/mm3 (0.00-0.23); BASOPHILS PERCENT AUTO 1 % (0-2); EOSINOPHILS ABSOLUTE AUTO 0.17 K/mm3 (0.00-0.68); EOSINOPHILS PERCENT AUTO 3 % (0-6); Hematocrit 42.7 % (33.0-51.0); Hemoglobin 13.9 g/dL (11.5-16.0); IMMATURE GRAN ABSOLUTE AUTO 0.03 K/mm3 (0.00-0.10); IMMATURE GRAN PERCENT AUTO 1 % (0-1); LYMPHOCYTES PERCENT AUTO 26 % (21-46); MONOCYTES ABSOLUTE AUTO 0.45 K/mm3 (0.16-1.47); MONOCYTES PERCENT AUTO 8 % (4-13); Mean Corpuscular HGB 26.5 pg (26.0-34.0); Mean Corpuscular HGB Conc 32.6 g/dL (31.5-36.5); Mean Corpuscular Volume 82 fL (80-100); Mean Platelet Volume 12.2 fL (9.1-12.4); NEUTROPHILS ABSOLUTE AUTO 3.33 K/mm3 (1.96-9.15); NEUTROPHILS PERCENT AUTO 61 % (41-73); Platelet Count 201 K/mm3 (150-400); RDW Coefficient Variation 16.6 % (11.7-14.2); RDW Standard Deviation 48.4 fL (35.1-46.3); Red Blood Cell Count 5.24 M/mm3 (3.80-5.20); White Blood Cell Count 5.43 K/mm3 (4.00-11.30)
[2024-05-25 15:18] LABS: Albumin/Globulin Ratio 0.6 (0.8-1.8); Bilirubin, Total 0.6 mg/dL (0.1-1.0); Bun/Creatinine Ratio 11.7 (12.0-20.0); Calcium, Blood 9.3 mg/dL (8.5-10.1); Creatinine, Blood 0.77 mg/dL (0.40-1.00); Globulin, Blood 4.7 g/dL (2.2-4.0); Potassium, Blood 3.9 mmol/L (3.5-5.5); Total Protein, Blood 7.7 g/dL (6.4-8.2)
[2024-05-25] MEDS ORDERED: HYDROcodone 5-APAP 325 TAB PO ONE (17:05)
[2024-05-25] MEDS ORDERED: CEPH500 PO (17:08)
[2024-05-25 18:15] VITALS: BP 135/85
== END 2024-05-25 19:57 | disposition home or self-care (01) ==
LOC: ER 12:59
PROVIDERS: Emergency Medicine
DX: N39.0 Urinary tract infection, site not specified (principal)
CPT/HCPCS: 36415; 51702; 74177; 80053; 81001; 83605; 85025; 87040; 87086; 96365-59; 99284-25; A9270; J0696; J7030; Q9967

== ENCOUNTER 2024-08-30 21:20 | Emergency (ER) | payer OTHER ==
[~2024-08-30] VITALS: Ht 175.3 cm; Wt 172.4 kg
[2024-08-30 22:03] LABS: BASOPHILS ABSOLUTE AUTO 0.08 K/mm3 (0.00-0.23); BASOPHILS PERCENT AUTO 1 % (0-2); EOSINOPHILS ABSOLUTE AUTO 0.17 K/mm3 (0.00-0.68); EOSINOPHILS PERCENT AUTO 3 % (0-6); Hemoglobin 13.2 g/dL (11.5-16.0); IMMATURE GRAN ABSOLUTE AUTO 0.12 K/mm3 (0.00-0.10); IMMATURE GRAN PERCENT AUTO 2 % (0-1); LYMPHOCYTES ABSOLUTE AUTO 1.17 K/mm3 (0.84-5.20); LYMPHOCYTES PERCENT AUTO 19 % (21-46); MONOCYTES ABSOLUTE AUTO 0.59 K/mm3 (0.16-1.47); MONOCYTES PERCENT AUTO 10 % (4-13); Mean Corpuscular HGB 25.6 pg (26.0-34.0); Mean Corpuscular HGB Conc 30.7 g/dL (31.5-36.5); Mean Corpuscular Volume 84 fL (80-100); Mean Platelet Volume 12.4 fL (9.1-12.4); NEUTROPHILS ABSOLUTE AUTO 4.07 K/mm3 (1.96-9.15); NEUTROPHILS PERCENT AUTO 66 % (41-73); Platelet Count 139 K/mm3 (150-400); RDW Coefficient Variation 18.5 % (11.7-14.2); RDW Standard Deviation 55.6 fL (35.1-46.3); Red Blood Cell Count 5.15 M/mm3 (3.80-5.20)
[2024-08-30 22:14] LABS: Albumin, Blood 2.6 g/dL (3.4-5.0); Albumin/Globulin Ratio 0.6 (0.8-1.8); Bilirubin, Total 0.6 mg/dL (0.1-1.0); Bun/Creatinine Ratio 8.8 (12.0-20.0); Calcium, Blood 8.1 mg/dL (8.5-10.1); Creatinine, Blood 0.8 mg/dL (0.40-1.00); Globulin, Blood 4.3 g/dL (2.2-4.0); Potassium, Blood 3.9 mmol/L (3.5-5.5); Total Protein, Blood 6.9 g/dL (6.4-8.2)
[2024-08-30 22:34] VITALS: BP 124/82
[2024-08-30 23:02] LABS: Magnesium, Blood 1.9 mg/dL (1.6-2.4)
== END 2024-08-31 02:04 | disposition home or self-care (01) ==
LOC: ER 21:20
PROVIDERS: Student in an Organized Health Care Education/Training Program
DX: R55 Syncope and collapse (principal); K52.9 Noninfective gastroenteritis and colitis, unspecified; I48.0 Paroxysmal atrial fibrillation; I11.0 Hypertensive heart disease with heart failure; I50.32 Chronic diastolic (congestive) heart failure; E03.9 Hypothyroidism, unspecified; K21.9 Gastro-esophageal reflux disease without esophagitis; Z88.8 Allergy status to other drugs, medicaments and biological substances; Z88.5 Allergy status to narcotic agent; Z91.018 Allergy to other foods; Z91.048 Other nonmedicinal substance allergy status; Z79.01 Long term (current) use of anticoagulants; Z79.890 Hormone replacement therapy; Z79.899 Other long term (current) drug therapy
CPT/HCPCS: 74177; 80053; 83690; 83735; 84484; 85025; 93005; 93010; 99284-25; Q9967

== ENCOUNTER → 2024-09-23 | Outpatient (CLI) | payer OTHER ==
[~2024-09-23] MED LIST changes: +JARDIANCE10 MG PO; +JUVEN PACKET1 EAC3 PO; +LORA.5 PO; +MICONAZOLE NITRATE TOP; +NYAMYC1513 TOP; +SPIR50 PO; +Vitamin B-Comp1 EAC7 PO; -Vitamin B-Comp1 EACH PO
[2024-09-24 10:26] LABS: BASOPHILS ABSOLUTE AUTO 0.06 K/mm3 (0.00-0.23); BASOPHILS PERCENT AUTO 1 % (0-2); EOSINOPHILS ABSOLUTE AUTO 0.16 K/mm3 (0.00-0.68); EOSINOPHILS PERCENT AUTO 4 % (0-6); Hematocrit 44.6 % (33.0-51.0); Hemoglobin 13.9 g/dL (11.5-16.0); IMMATURE GRAN ABSOLUTE AUTO 0.04 K/mm3 (0.00-0.10); IMMATURE GRAN PERCENT AUTO 1 % (0-1); LYMPHOCYTES ABSOLUTE AUTO 0.93 K/mm3 (0.84-5.20); LYMPHOCYTES PERCENT AUTO 20 % (21-46); MONOCYTES ABSOLUTE AUTO 0.35 K/mm3 (0.16-1.47); MONOCYTES PERCENT AUTO 8 % (4-13); Mean Corpuscular HGB 25.6 pg (26.0-34.0); Mean Corpuscular HGB Conc 31.2 g/dL (31.5-36.5); Mean Corpuscular Volume 82 fL (80-100); NEUTROPHILS ABSOLUTE AUTO 3.08 K/mm3 (1.96-9.15); NEUTROPHILS PERCENT AUTO 67 % (41-73); NRBC ABSOLUTE 0.04 K/mm3 (0.00-0.02); NRBC Auto 0.9 /100 WBC (0.0-0.2); RDW Coefficient Variation 18.6 % (11.7-14.2); RDW Standard Deviation 54.9 fL (35.1-46.3); Red Blood Cell Count 5.43 M/mm3 (3.80-5.20); White Blood Cell Count 4.62 K/mm3 (4.00-11.30)
[2024-09-24 10:33] LABS: Mean Platelet Volume 11.4 fL (9.1-12.4); Platelet Count 162 K/mm3 (150-400)
[2024-09-24 11:15] LABS: Albumin/Globulin Ratio 0.7 (0.8-1.8); Bilirubin, Total 0.6 mg/dL (0.1-1.0); Bun/Creatinine Ratio 10.4 (12.0-20.0); Calcium, Blood 9.3 mg/dL (8.5-10.1); Creatinine, Blood 0.86 mg/dL (0.40-1.00); Globulin, Blood 4.4 g/dL (2.2-4.0); Potassium, Blood 3.8 mmol/L (3.5-5.5); Total Protein, Blood 7.4 g/dL (6.4-8.2)
== END ==
LOC: LAB SHORT 13:30 → LAB 13:30
PROVIDERS: Nurse Practitioner Family
DX: L03.311 Cellulitis of abdominal wall (principal)
CPT/HCPCS: 80053; 85025

== ENCOUNTER 2024-09-27 20:27 | Inpatient (IN) | payer OTHER ==
[~2024-09-27] VITALS: Ht 175.3 cm; Wt 149.7 kg
[~2024-09-27 20:27] MED LIST changes: -JARDIANCE10 MG PO; -JUVEN PACKET1 EAC3 PO; -LORA.5 PO; -MICONAZOLE NITRATE TOP; -NYAMYC1513 TOP; -SPIR50 PO
[2024-09-27 21:56] LABS: BASOPHILS ABSOLUTE AUTO 0.05 K/mm3 (0.00-0.23); BASOPHILS PERCENT AUTO 1 % (0-2); EOSINOPHILS ABSOLUTE AUTO 0.12 K/mm3 (0.00-0.68); EOSINOPHILS PERCENT AUTO 3 % (0-6); Hematocrit 42.3 % (33.0-51.0); Hemoglobin 13.6 g/dL (11.5-16.0); IMMATURE GRAN ABSOLUTE AUTO 0.05 K/mm3 (0.00-0.10); IMMATURE GRAN PERCENT AUTO 1 % (0-1); LYMPHOCYTES ABSOLUTE AUTO 1.12 K/mm3 (0.84-5.20); LYMPHOCYTES PERCENT AUTO 24 % (21-46); MONOCYTES PERCENT AUTO 13 % (4-13); Mean Corpuscular HGB 25.8 pg (26.0-34.0); Mean Corpuscular HGB Conc 32.2 g/dL (31.5-36.5); Mean Corpuscular Volume 80 fL (80-100); NEUTROPHILS ABSOLUTE AUTO 2.81 K/mm3 (1.96-9.15); NEUTROPHILS PERCENT AUTO 59 % (41-73); RDW Coefficient Variation 18.1 % (11.7-14.2); RDW Standard Deviation 51.8 fL (35.1-46.3); Red Blood Cell Count 5.28 M/mm3 (3.80-5.20); White Blood Cell Count 4.75 K/mm3 (4.00-11.30)
[2024-09-27 21:57] LABS: Mean Platelet Volume 9.7 fL (9.1-12.4); Platelet Count 108 K/mm3 (150-400)
[2024-09-27 22:12] LABS: Albumin, Blood 2.7 g/dL (3.4-5.0); Albumin/Globulin Ratio 0.6 (0.8-1.8); Bilirubin, Total 0.7 mg/dL (0.1-1.0); Bun/Creatinine Ratio 9.4 (12.0-20.0); Calcium, Blood 8.5 mg/dL (8.5-10.1); Creatinine, Blood 0.85 mg/dL (0.40-1.00); Globulin, Blood 4.3 g/dL (2.2-4.0); Potassium, Blood 3.9 mmol/L (3.5-5.5)
[2024-09-27] MEDS ORDERED: Furosemide 10 MG/ML 4ML Vial IV ONE (22:20)
[2024-09-28 00:52] VITALS: BP 117/77
[2024-09-28] MEDS ORDERED: HYDROcodone 5-APAP 325 TAB PO PRN (02:25)
[2024-09-28 04:28] VITALS: BP 117/61
[2024-09-28 08:38] LABS: BASOPHILS ABSOLUTE AUTO 0.05 K/mm3 (0.00-0.23); BASOPHILS PERCENT AUTO 1 % (0-2); EOSINOPHILS ABSOLUTE AUTO 0.11 K/mm3 (0.00-0.68); EOSINOPHILS PERCENT AUTO 2 % (0-6); Hematocrit 45.1 % (33.0-51.0); Hemoglobin 14.1 g/dL (11.5-16.0); IMMATURE GRAN ABSOLUTE AUTO 0.02 K/mm3 (0.00-0.10); IMMATURE GRAN PERCENT AUTO 0 % (0-1); LYMPHOCYTES ABSOLUTE AUTO 1.09 K/mm3 (0.84-5.20); LYMPHOCYTES PERCENT AUTO 21 % (21-46); MONOCYTES ABSOLUTE AUTO 0.51 K/mm3 (0.16-1.47); MONOCYTES PERCENT AUTO 10 % (4-13); Mean Corpuscular HGB 25.5 pg (26.0-34.0); Mean Corpuscular HGB Conc 31.3 g/dL (31.5-36.5); Mean Corpuscular Volume 82 fL (80-100); Mean Platelet Volume 10.1 fL (9.1-12.4); NEUTROPHILS ABSOLUTE AUTO 3.33 K/mm3 (1.96-9.15); NEUTROPHILS PERCENT AUTO 65 % (41-73); Platelet Count 147 K/mm3 (150-400); RDW Coefficient Variation 18.3 % (11.7-14.2); RDW Standard Deviation 53.6 fL (35.1-46.3); Red Blood Cell Count 5.53 M/mm3 (3.80-5.20); White Blood Cell Count 5.11 K/mm3 (4.00-11.30)
[2024-09-28 08:43] VITALS: BP 118/77
[2024-09-28 08:51] LABS: Albumin, Blood 2.8 g/dL (3.4-5.0); Albumin/Globulin Ratio 0.6 (0.8-1.8); Bilirubin, Total 0.7 mg/dL (0.1-1.0); Bun/Creatinine Ratio 8.5 (12.0-20.0); Calcium, Blood 8.5 mg/dL (8.5-10.1); Creatinine, Blood 0.83 mg/dL (0.40-1.00); Globulin, Blood 4.6 g/dL (2.2-4.0); Total Protein, Blood 7.4 g/dL (6.4-8.2)
[2024-09-28] MEDS ORDERED: Metoprolol Succinate 25 MG TABCR PO SCH (09:00)
[2024-09-28] MEDS ORDERED: Potassium Chloride 20 MEQ TabCR PO SCH (09:00)
[2024-09-28] MEDS ORDERED: Miconazole Nitrate 2% 85 GM PWD TOP SCH (09:00)
[2024-09-28] MEDS ORDERED: Gabapentin 300 MG Cap PO SCH ×2 (09:00→21:00)
[2024-09-28] MEDS ORDERED: Apixaban 5 MG Tab PO SCH (09:00)
[2024-09-28] MEDS ORDERED: Furosemide 10 MG / ML 2ML Vial IV SCH (09:00)
[2024-09-28] MEDS ORDERED: Arginine/Glutamine/Calcium Hmb 1 Packet PO SCH (11:25)
[2024-09-28] MEDS ORDERED: NYAMYC1513 TOP (11:59)
[2024-09-28] MEDS ORDERED: LORA.5 PO (11:59)
[2024-09-28] MEDS ORDERED: HYDROCODONE-AC1 EA19 PO (12:00)
[2024-09-28] MEDS ORDERED: Potassium Chloride 20 MEQ TabCR PO ONE (12:00)
[2024-09-28] MEDS ORDERED: CEPH500 PO (12:00)
[2024-09-28 15:00] VITALS: BP 114/72
--- NOTE | 2024-09-28 15:55 | NUR ---
PT WAS REPORTED TO HAVE STAGE 2 SACRAL WOUND. PT WAS TURNED AND PICTURES OF SACRAL AREA WAS TAKEN LOOKS TO HAVE DARKER SKIN THAT HAS BEEN SCRAPPED. PER PT EMS STATED THEY HAD CAUSED THE SCRAPS ON PT SACRAL AREA. PHOTO IS IN CHART. IMAGE SHOWN TO DR PASTOR AND PT IS TO BE TURNED Q2 HRS, KEEP PERWICK IN PLACE TO KEEP DRY. PT NEEDS AREA CLEANED AND PATTED DRY DAILY. WILL CONTINUE TO MONITOR.
--- NOTE | 2024-09-28 16:56 | NUR ---
SHIFT SUMMARY PT IS A/Ox4 AND ABLE TO USE CALL LIGHT APPROPRIATELY. PT HAS A STAGE 2 PRESSURE INJURY ON BUTTOCKS THAT SHE ACQUIRED FROM EMS TRANSFER AND REQUIRES Q2 REPOSITIONING. SEE IMAGE IN PTS CHART. PTS PAIN AND GENERALIZED EDEMA ARE BEING TREATED PER EMAR. PT IS A TOTAL ASSIST FOR TRANSFERS AND BED BOUND AT BASELINE. SHE HAD AN ECHO TODAY, RESULTS ARE STILL PENDING. PT IS CURRENTLY IN BED WATCHING T.V., BED IS IN LOWEST POSITION AND CALL LIGHT IS IN REACH. NO ACUTE NEEDS AT THIS TIME.
[2024-09-28] MEDS ORDERED: OXYMETAZOLINE 0.05% PRN (17:35)
--- NOTE | 2024-09-28 17:53 | NUR ---
PLEASE REFER TO STUDENT NOTE FOR SHIFT SUMMARY THIS BOARD MILL SUPERVISOR HAS REVIEWED AND AGREES.
[2024-09-28] MEDS ORDERED: Spironolactone 50 MG Tab PO SCH (18:00)
[2024-09-28] MEDS ORDERED: LORazepam 0.5 MG Tab PO ONE (19:50)
[2024-09-28 20:10] VITALS: BP 125/76
[2024-09-29 04:35] VITALS: BP 104/69
[2024-09-29] MEDS ORDERED: Levothyroxine Sodium 0.1 MG Tab PO SCH (06:00)
--- NOTE | 2024-09-29 06:04 | NUR ---
SHIFT SUMMARY NOC PT A/O X 4. PLEASANT AND COOPERATIVE WITH CARE. VSS. PT HAD PANIC ATTACK DURING BEGINNING OF SHIFT AND ATIVAN 0.5 MG PO ORDERED AND GIVEN WHICH RELIEVED ATTACK. PT CHRONIC PAIN BEING MANAGED PER EMAR. STAGE 2 PRESSURE INJURY IS OPEN TO AIR DUE TO LOCATION AND PT REPOSITIONED Q2H/PRN TO RELIEVE CONSISTENT PRESSURE. PUREWICK IN PLACE DUE TO INCONTINENCE/FREQUENCY FROM IV LASIX. 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 ON 2L FLUID RESTRICTION. PT CURRENTLY RESTING WITH BED IN LOWEST POSITION, AND CALL LIGHT WITHIN REACH.
[2024-09-29 07:15] VITALS: BP 114/69
[2024-09-29 07:16] LABS: Albumin, Blood 2.6 g/dL (3.4-5.0); Albumin/Globulin Ratio 0.6 (0.8-1.8); Bilirubin, Total 0.7 mg/dL (0.1-1.0); Bun/Creatinine Ratio 11.9 (12.0-20.0); Calcium, Blood 8.8 mg/dL (8.5-10.1); Creatinine, Blood 0.93 mg/dL (0.40-1.00); Globulin, Blood 4.3 g/dL (2.2-4.0); Potassium, Blood 3.6 mmol/L (3.5-5.5); Total Protein, Blood 6.9 g/dL (6.4-8.2)
[2024-09-29 08:46] LABS: BASOPHILS ABSOLUTE AUTO 0.04 K/mm3 (0.00-0.23); BASOPHILS PERCENT AUTO 1 % (0-2); EOSINOPHILS ABSOLUTE AUTO 0.13 K/mm3 (0.00-0.68); EOSINOPHILS PERCENT AUTO 3 % (0-6); Hematocrit 41.8 % (33.0-51.0); Hemoglobin 13.2 g/dL (11.5-16.0); IMMATURE GRAN ABSOLUTE AUTO 0.04 K/mm3 (0.00-0.10); IMMATURE GRAN PERCENT AUTO 1 % (0-1); LYMPHOCYTES ABSOLUTE AUTO 0.91 K/mm3 (0.84-5.20); LYMPHOCYTES PERCENT AUTO 20 % (21-46); MONOCYTES ABSOLUTE AUTO 0.53 K/mm3 (0.16-1.47); MONOCYTES PERCENT AUTO 12 % (4-13); Mean Corpuscular HGB 25.8 pg (26.0-34.0); Mean Corpuscular HGB Conc 31.6 g/dL (31.5-36.5); Mean Corpuscular Volume 82 fL (80-100); Mean Platelet Volume 10.8 fL (9.1-12.4); NEUTROPHILS ABSOLUTE AUTO 2.83 K/mm3 (1.96-9.15); NEUTROPHILS PERCENT AUTO 63 % (41-73); Platelet Count 151 K/mm3 (150-400); RDW Coefficient Variation 18.1 % (11.7-14.2); RDW Standard Deviation 53.7 fL (35.1-46.3); Red Blood Cell Count 5.12 M/mm3 (3.80-5.20); White Blood Cell Count 4.48 K/mm3 (4.00-11.30)
--- NOTE | 2024-09-29 11:14 | NUR ---
PT DID NOT FIT IN BED WELL THIS [facility] FACULTY ASSISTANT WAS ABLE TO GET A BARIATRIC BED FOR PT WITH AIR MATTRESS. PT TOLERATED BEING LIFTED OVER TO NEW BED. PT SETTLED IN WELL AND VERBALIZED HOW MUCH MORE COMFORTABLE SHE FELT. PT'S BOTTOM CLEANED AND DRIED PERWICK IN PLACE AND DIURESING WELL. WILL CONTINUE TO MONITOR.
[2024-09-29 11:32] VITALS: BP 123/77
[2024-09-29] MEDS ORDERED: Furosemide 10 MG / ML 2ML Vial IV SCH (14:00)
--- NOTE | 2024-09-29 17:22 | NUR ---
NO ACUTE CHANGES PT AOX4 AND COOPERATIVE OF CARE. PT STATES HER BIGGER BED IS MUCH MORE COMFORTABLE. PT CONTINUES TO HAVE PERWICK AND KEPT DRY AND CHANGE POSTION Q2 HRS FOR SACRAL AREA TO HEAL. NO DISTRESS CURENTLY NOTED AND CALL LIGHT IN REACH WILL CONTINUE TO MONITOR.
[2024-09-29 20:11] VITALS: BP 106/73
[2024-09-30 03:30] VITALS: BP 110/69
--- NOTE | 2024-09-30 06:47 | NUR ---
SHIFT SUMMARY PT IS ALERT AND ORIENTED TIMES 4 , FULL CODE. PT ADMITTED FOR ANASARCA. PT HAS PUREWICK IN PLACE. PT IS COOPERATIVE WITH CARE. PT DOES NOT NEED SUPPLEMENTAL OXYGEN. PT IS ON CONTACT PRECAUTIONS FOR MRSA IN WOUND. PT HAS PACEMAKER. PT IS STRICT I&O S 2000ML/DAY. BED IS IN LOW POSITION, RAILS TIMES TWO, AND CALL LIGHT WITHIN REACH.
[2024-09-30 08:03] VITALS: BP 116/71
[2024-09-30] MEDS ORDERED: Polyethylene Glycol 3350 17 gm PO PRN (13:10)
[2024-09-30] MEDS ORDERED: Sennosides 8.6 MG Tab PO SCH (14:00)
[2024-09-30 14:51] VITALS: BP 134/73
--- NOTE | 2024-09-30 18:13 | NUR ---
A&OX4, FULL CODE, ON FLUID RESTRICTION FOR DIURESISING, ANASARCA, Q2 TURNS, SKIN BREAKDOWN ON BOTTOM & FOLDS CLEAN, DRY AND PROWDER APPLIED, PUREWIC IN PLACE, BED BOUND & USES BEDPAN, GAVE LASIX ADMINSTERED PER EMAR, NO BM GAVE MIRALAX & SENNA. PT EATING MININAL DUE TO RESTRICTIONS & OFFERED ALTERNATIVE & DECLINED. CALL LIGHT IN REACH & WILL CALL FOR ASSISTANCE
[2024-09-30 19:43] VITALS: BP 112/62
[2024-10-01 06:56] LABS: Bun/Creatinine Ratio 23.5 (12.0-20.0); Calcium, Blood 9.1 mg/dL (8.5-10.1); Creatinine, Blood 0.94 mg/dL (0.40-1.00)
[2024-10-01 07:56] VITALS: BP 118/76
[2024-10-01] MEDS ORDERED: Potassium Chloride 20 MEQ TabCR PO SCH (09:00)
[2024-10-01] MEDS ORDERED: Potassium Chloride 20 MEQ TabCR PO ONE (09:00)
--- NOTE | 2024-10-01 09:00 | NUR ---
pt laying in bed awake a/ox4, pleasant but anxious, cooperative with care, follows commands well, reports pain 5/10, states she did not sleep well last night, lungs are clear dim in bases, on r/a, no cough noted, hrr, +1 edema noted to b/l le, ppp +2, cap refill <3 sec, vs stable, afebrile, piv to lfa site is clear and patent, btx4, abd flat soft nontender, voids via purwick at this time, skin has yeast rash to folds, moves arms with gross motor movement, hands are a bit contracted, is bed bound, lift to get oob, reports constipation, will give miralax as ordered, call light in reach.
[2024-10-01] MEDS ORDERED: LORazepam 1 MG Tab PO PRN (10:05)
[2024-10-01] MEDS ORDERED: TraZODone HCl 50 MG Tab PO PRN (12:20)
[2024-10-01 15:17] VITALS: BP 126/90
[2024-10-01] MEDS ORDERED: Sod Phosphate/Sod Biphosphate 132 ML BTL PR ONE (15:45)
[2024-10-01 19:19] VITALS: BP 128/86
[2024-10-01 21:02] LABS: HEPATITIS B SURFACE ANTIBODY <3.10 IU/L; HEPATITIS B SURFACE ANTIGEN Negative (Negative); HEPATITIS BE ANTIBODY Negative (Negative); HEPATITIS BE ANTIGEN Negative (Negative)
[2024-10-02 03:26] VITALS: BP 119/79
--- NOTE | 2024-10-02 04:34 | NUR ---
SHIFT SUMM: PT IS A 73 YO FULL CODE ADMITTED FOR ANASARCA. PT IS A Q2 TURN AND LIFT PT AT BASELINE. PT HAS A PURE WICK IN PLACE AND ATTENDS THAT IS CLEAN AND DRY AND THE PURE WICK SEEMS TO BE WORKING WELL W/PLACEMENT. PT IS ON A 2L FLUID RESTRICTION THAT SHE HAS COMPLIED W/THIS SHIFT. PT IS ON RA AND NO TELE BUT HIST OF A-FIB. PT USES BED PRIEST FOR BOWELS AND HAD A BM FOR DAYSHIFT YESTERDAY. POWDER APPLIED TO IN BETWEEN SKIN FOLDS. PT HAS A PATENT PIV TO LFA THAT IS POSITIONAL. PT TAKES MEDS WWW 1 AT A TIME. PT RECIEVED LASIX LAST NIGHT THROUGH PIV AND PAIN MEDICATION PER EMAR. PT IN CONTACT PREC FOR MRSA IN THE WOUNDS. PT HAS A PRESSURE WOUND TO HER SACRUM. PT IS A$OX4 AND CALLS TO MAKE NEEDS KNOWN. CALL LIGHT IN REACH AND BED LOW AND LOCKED.
[2024-10-02 05:51] LABS: BASOPHILS ABSOLUTE AUTO 0.05 K/mm3 (0.00-0.23); BASOPHILS PERCENT AUTO 1 % (0-2); EOSINOPHILS ABSOLUTE AUTO 0.17 K/mm3 (0.00-0.68); EOSINOPHILS PERCENT AUTO 2 % (0-6); Hemoglobin 13.1 g/dL (11.5-16.0); IMMATURE GRAN ABSOLUTE AUTO 0.04 K/mm3 (0.00-0.10); IMMATURE GRAN PERCENT AUTO 1 % (0-1); LYMPHOCYTES ABSOLUTE AUTO 1.14 K/mm3 (0.84-5.20); LYMPHOCYTES PERCENT AUTO 15 % (21-46); MONOCYTES ABSOLUTE AUTO 0.65 K/mm3 (0.16-1.47); MONOCYTES PERCENT AUTO 9 % (4-13); Mean Corpuscular HGB 25.5 pg (26.0-34.0); Mean Corpuscular HGB Conc 31.2 g/dL (31.5-36.5); Mean Corpuscular Volume 82 fL (80-100); Mean Platelet Volume 11.5 fL (9.1-12.4); NEUTROPHILS ABSOLUTE AUTO 5.55 K/mm3 (1.96-9.15); NEUTROPHILS PERCENT AUTO 73 % (41-73); Platelet Count 123 K/mm3 (150-400); RDW Coefficient Variation 17.8 % (11.7-14.2); RDW Standard Deviation 52.8 fL (35.1-46.3); Red Blood Cell Count 5.13 M/mm3 (3.80-5.20)
[2024-10-02 06:03] LABS: Bun/Creatinine Ratio 24.9 (12.0-20.0); Calcium, Blood 9.1 mg/dL (8.5-10.1); Creatinine, Blood 0.93 mg/dL (0.40-1.00); Potassium, Blood 3.4 mmol/L (3.5-5.5)
[2024-10-02 07:15] VITALS: BP 133/84
[2024-10-02 15:47] VITALS: BP 141/101
--- NOTE | 2024-10-02 16:31 | NUR ---
SHIFT SUMMARY PATIENT A/OX4, ANXIOUS BUT DECLINING MEDS THIS SHIFT. REPORTS PAIN TO BACK, DID ACCEPT MEDICATIONS FOR THIS PER MAR. ACCEPTING OF FREQUENT TURNS, ON AIR MATTRESS. SKIN FOLDS CLEANED AND DRIED, POWDER APPLIED, FEW OPEN AREAS PERSIST, BUT CONTINUE TO IMPROVE. ABLE TO PARTICIPATE WITH CARES. ABLE TO MAKE NEEDS KNOWN. USING PUREWICK FOR IMPROVED SKIN INTEGRITY, NO BM THIS SHIFT. CALL LIGHT IN REACH, CARES ONGOING.
[2024-10-02 17:44] VITALS: BP 142/93
[2024-10-02 19:22] VITALS: BP 134/72
--- NOTE | 2024-10-03 03:08 | NUR ---
SHIFT SUMMARY PATIENT HAS BEEN SLEEPING INTERMITTANTLY TONIGHT. SHE HAS BEEN MEDICATED X1 FOR BACK PAIN TONIGHT WITH NORCO. SHE HAS ALSO REQUESTED ATIVAN TO HELP HER REST. VITAL SIGNS HAVE BEEN STABLE. PATIENT IS ORIENTED X4. SHE HAS HER CALL LIGHT WITHIN REACH. SHE HAS BEEN INSTRUCTED TO CALL WITH ANY REQUESTS OR NEEDS.
[2024-10-03 03:52] VITALS: BP 143/94
[2024-10-03 06:12] LABS: BASOPHILS ABSOLUTE AUTO 0.07 K/mm3 (0.00-0.23); BASOPHILS PERCENT AUTO 1 % (0-2); EOSINOPHILS ABSOLUTE AUTO 0.14 K/mm3 (0.00-0.68); EOSINOPHILS PERCENT AUTO 2 % (0-6); Hematocrit 42.8 % (33.0-51.0); Hemoglobin 13.5 g/dL (11.5-16.0); IMMATURE GRAN ABSOLUTE AUTO 0.02 K/mm3 (0.00-0.10); IMMATURE GRAN PERCENT AUTO 0 % (0-1); LYMPHOCYTES ABSOLUTE AUTO 1.21 K/mm3 (0.84-5.20); LYMPHOCYTES PERCENT AUTO 18 % (21-46); MONOCYTES ABSOLUTE AUTO 0.55 K/mm3 (0.16-1.47); MONOCYTES PERCENT AUTO 8 % (4-13); Mean Corpuscular HGB 25.6 pg (26.0-34.0); Mean Corpuscular HGB Conc 31.5 g/dL (31.5-36.5); Mean Corpuscular Volume 81 fL (80-100); NEUTROPHILS ABSOLUTE AUTO 4.93 K/mm3 (1.96-9.15); NEUTROPHILS PERCENT AUTO 71 % (41-73); NRBC ABSOLUTE 0.02 K/mm3 (0.00-0.02); NRBC Auto 0.3 /100 WBC (0.0-0.2); RDW Standard Deviation 52.6 fL (35.1-46.3); Red Blood Cell Count 5.28 M/mm3 (3.80-5.20); White Blood Cell Count 6.92 K/mm3 (4.00-11.30)
[2024-10-03 06:29] LABS: Bun/Creatinine Ratio 28.2 (12.0-20.0); Calcium, Blood 9.3 mg/dL (8.5-10.1); Creatinine, Blood 0.96 mg/dL (0.40-1.00); Potassium, Blood 3.5 mmol/L (3.5-5.5)
[2024-10-03 06:38] LABS: Platelet Count 175 K/mm3 (150-400)
[2024-10-03 07:46] VITALS: BP 136/88
[2024-10-03 15:33] VITALS: BP 142/73
--- NOTE | 2024-10-03 16:07 | NUR ---
SHIFT SUMMARY PATIENT IN BED THIS SHIFT, ACCEPTING OF TURNING AND POSITIONING. EXPERIENCING ANXIETY OVER HOUSING PAYMENT AND BEING HOSPITALIZED FOR A LONG PERIOD, REQUESTED ATIVAN AND WAS MEDICATED PER MAR. SKIN FOLDS CLEANED AND DRIED, POWDER APPLIED, MINOR OPEN AREAS PERSIST BUT CONTINUE TO LOOK IMPROVED. DR LEACH DECREASED LASIX ADMIN BY ONE DOSE THIS SHIFT, AND PLAN IS TO TENTATIVELY D/C HOME TOMORROW WITH [facility]. A/O X4. ABLE TO MAKE NEEDS KNOWN. USING CALL LIGHT APPROPRIATELY. CARES ONGOING.
[2024-10-03 19:10] VITALS: BP 138/80
[2024-10-03] MEDS ORDERED: Furosemide 10 MG / ML 2ML Vial IV SCH (21:00)
--- NOTE | 2024-10-04 03:14 | NUR ---
SHIFT SUMMARY PATIENT HAS APPEARED TO SLEEP COMFORTABLY TONIGHT. SHE WAS MEDICATED WITH NORCO FOR LT LEG PAIN AT BEDTIME. IV LASIX WAS ADMINISTERED WITHOUT COMPLICATIONS. PATIENT HAS COOPERATED WITH HER FLUID RESTRICTION. PATIENT IS ORIENTED X 4. SHE HAS HER CALL LIGHT WITHIN REACH AND HAS AGREED TO CALL WITH ANY REQUESTS OR NEEDS.
[2024-10-04 03:30] VITALS: BP 136/88
[2024-10-04 07:10] VITALS: BP 132/77
[2024-10-04 07:22] LABS: Albumin, Blood 2.9 g/dL (3.4-5.0); Anion Gap 7 mmol/L (3-11); Blood Urea Nitrogen 29 mg/dL (8-24); CO2, Blood 33 mmol/L (21-32); Calcium, Blood 9.5 mg/dL (8.5-10.1); Chloride, Blood 100 mmol/L (98-108); Creatinine, Blood 0.97 mg/dL (0.40-1.00); Glomerular Filtration Rate 62 (60-); Glucose, Blood 119 mg/dL (70-99); Magnesium, Blood 2.2 mg/dL (1.6-2.4); Phosphorus, Blood 3.5 mg/dL (2.5-4.9); Potassium, Blood 3.6 mmol/L (3.5-5.5); Sodium, Blood 136 mmol/L (136-145)
[2024-10-04] MEDS ORDERED: JUVEN PACKET1 EAC3 PO (10:01)
[2024-10-04] MEDS ORDERED: MICONAZOLE NITRATE TOP (10:02)
[2024-10-04] MEDS ORDERED: SPIR50 PO (10:03)
[2024-10-04] MEDS ORDERED: Furosemide 80 MG Tab PO SCH (10:15)
[2024-10-04] MEDS ORDERED: JARDIANCE10 MG PO (12:12)
--- NOTE | 2024-10-04 14:24 | NUR ---
DISCHARGE NOTE PT D/C HOME AT 1415. PT PROVIDED W/ VERBAL AND WRITTEN INSTRUCTIONS BY BREAK LATISHA ESPAÑA AND REPORTED UNDERSTANDING. PT A&OX4, VSS, BEDRIDDEN AT BASE, TOLERATING PO, VOIDING, AND PAIN MANAGED PER EMAR. BELONGINGS WERE RETURNED AND HARD SCRIPT GIVEN TO PT. PT ESCOURTED OUT VIA GURNEY BY TRANSPORT.
== END 2024-10-04 14:15 | disposition home health service (06) | DRG 432 ==
LOC: ER 20:27 → MEDS 22:54 → ERHOLD 22:54 → MEDS 09-28 00:37
PROVIDERS: Emergency Medicine; Family Medicine; Internal Medicine; ADMIT Internal Medicine
DX: K74.69 Other cirrhosis of liver (principal); I50.33 Acute on chronic diastolic (congestive) heart failure; Z68.42 Body mass index [BMI] 45.0-49.9, adult; R18.8 Other ascites; I11.0 Hypertensive heart disease with heart failure; B37.2 Candidiasis of skin and nail; G47.00 Insomnia, unspecified; F41.0 Panic disorder [episodic paroxysmal anxiety]; I48.0 Paroxysmal atrial fibrillation; I27.20 Pulmonary hypertension, unspecified; E66.813 Obesity, class 3; G89.29 Other chronic pain; M54.9 Dorsalgia, unspecified; G43.909 Migraine, unspecified, not intractable, without status migrainosus; E03.9 Hypothyroidism, unspecified; K75.81 Nonalcoholic steatohepatitis (NASH); Z96.641 Presence of right artificial hip joint; K59.00 Constipation, unspecified; Z95.0 Presence of cardiac pacemaker; Z79.01 Long term (current) use of anticoagulants; Z88.8 Allergy status to other drugs, medicaments and biological substances; Z88.5 Allergy status to narcotic agent; Z74.01 Bed confinement status; Z79.890 Hormone replacement therapy
CPT/HCPCS: 36415; 71046; 80048; 80053; 80069; 83735; 83880; 84484; 85025; 86707; 87340; 87350; 93005; 93010; 94760; 96374; 99285-25; A9270; C8929; J1938; Q9957

== ENCOUNTER → 2024-11-16 | Outpatient (CLI) | payer OTHER ==
[~2024-11-16] MED LIST changes: +JARDIANCE10 MG PO; +JUVEN PACKET1 EAC3 PO; +LORA.5 PO; +MICONAZOLE NITRATE TOP; +NYAMYC1513 TOP; +SPIR50 PO
[2024-11-16 20:13] LABS: Anion Gap 7.0 mmol/L (3-11); Blood Urea Nitrogen 9.0 mg/dL (8-24); CO2, Blood 32.0 mmol/L (21-32); Calcium, Blood 9.0 mg/dL (8.5-10.1); Chloride, Blood 101.0 mmol/L (98-108); Creatinine, Blood 0.95 mg/dL (0.40-1.00); Glucose, Blood 91.0 mg/dL (70-99); Potassium, Blood 3.7 mmol/L (3.5-5.5); Sodium, Blood 136.0 mmol/L (136-145)
== END ==
LOC: LAB SHORT 17:33 → LAB 17:33
PROVIDERS: Nurse Practitioner Family
DX: I11.0 Hypertensive heart disease with heart failure (principal)
CPT/HCPCS: 80048

== ENCOUNTER 2025-02-22 11:18 | Emergency (ER) | payer OTHER ==
[~2025-02-22] VITALS: Ht 172.7 cm; Wt 133.8 kg
[2025-02-22 11:49] LABS: Source, Urine Clean Catch
[2025-02-22 11:55] LABS: Bilirubin, Urine Neg (Neg); Glucose Qualitative, Urine Neg (Neg); Ketones, Urine Neg (Neg); Leukocyte Esterase, Urine 3+ (Neg); Protein, Urine Neg (Neg); Specific Gravity, Urine 1.010 (1.003-1.022); Urobilinogen, Urine NORM (Normal)
[2025-02-22 12:05] LABS: Color, Urine Pale Yellow (P-Yellow)
[2025-02-22 12:10] LABS: BASOPHILS ABSOLUTE AUTO 0.08 K/mm3 (0.00-0.23); BASOPHILS PERCENT AUTO 2 % (0-2); EOSINOPHILS ABSOLUTE AUTO 0.17 K/mm3 (0.00-0.68); EOSINOPHILS PERCENT AUTO 3 % (0-6); Hematocrit 51.1 % (33.0-51.0); Hemoglobin 16.8 g/dL (11.5-16.0); IMMATURE GRAN ABSOLUTE AUTO 0.13 K/mm3 (0.00-0.10); IMMATURE GRAN PERCENT AUTO 3 % (0-1); LYMPHOCYTES ABSOLUTE AUTO 1.12 K/mm3 (0.84-5.20); LYMPHOCYTES PERCENT AUTO 22 % (21-46); MONOCYTES ABSOLUTE AUTO 0.52 K/mm3 (0.16-1.47); MONOCYTES PERCENT AUTO 10 % (4-13); Mean Corpuscular HGB Conc 32.9 g/dL (31.5-36.5); Mean Corpuscular Volume 81 fL (80-100); NEUTROPHILS ABSOLUTE AUTO 2.99 K/mm3 (1.96-9.15); NEUTROPHILS PERCENT AUTO 60 % (41-73); NRBC ABSOLUTE 0.00 K/mm3 (0.00-0.02); NRBC Auto 0.0 /100 WBC (0.0-0.2); RDW Coefficient Variation 18.5 % (11.7-14.2); RDW Standard Deviation 50.6 fL (35.1-46.3)
[2025-02-22 12:16] LABS: Red Blood Cells, Urine 0-2 /hpf (0-2)
[2025-02-22 12:20] LABS: Platelet Count 142 K/mm3 (150-400)
[2025-02-22 12:26] LABS: Alanine Aminotransfer (ALT/SGP 22.0 U/L (12-78); Albumin, Blood 3.3 g/dL (3.4-5.0); Albumin/Globulin Ratio 0.7 (0.8-1.8); Anion Gap 7.0 mmol/L (3-11); Aspartate Aminotrans (AST/SGOT 21.0 U/L (12-37); Bilirubin, Total 0.8 mg/dL (0.1-1.0); Blood Urea Nitrogen 10.0 mg/dL (8-24); CO2, Blood 30.0 mmol/L (21-32); Calcium, Blood 9.6 mg/dL (8.5-10.1); Chloride, Blood 102.0 mmol/L (98-108); Creatinine, Blood 0.84 mg/dL (0.40-1.00); Globulin, Blood 4.6 g/dL (2.2-4.0); Glucose, Blood 119.0 mg/dL (70-99); Potassium, Blood 3.7 mmol/L (3.5-5.5); Sodium, Blood 135.0 mmol/L (136-145); Total Protein, Blood 7.9 g/dL (6.4-8.2)
[2025-02-22] MEDS ORDERED: HYDHCL25 PO (13:49)
[2025-02-22 16:20] VITALS: BP 108/81
== END 2025-02-22 16:45 | disposition home or self-care (01) ==
LOC: ER 11:18
PROVIDERS: Physician Assistant
DX: R10.32 Left lower quadrant pain (principal); N20.0 Calculus of kidney; F41.0 Panic disorder [episodic paroxysmal anxiety]; I10 Essential (primary) hypertension; I48.91 Unspecified atrial fibrillation; Z88.5 Allergy status to narcotic agent; Z88.8 Allergy status to other drugs, medicaments and biological substances; Z91.048 Other nonmedicinal substance allergy status; Z91.018 Allergy to other foods; Z91.02 Food additives allergy status; Z79.890 Hormone replacement therapy; Z79.01 Long term (current) use of anticoagulants; Z79.899 Other long term (current) drug therapy
CPT/HCPCS: 74177; 80053; 81001; 83690; 85025; 87077; 87086; 87186; 99284-25; A6590; A9270; Q9967

== ENCOUNTER 2025-03-17 09:49 | Inpatient (IN) | payer OTHER ==
[~2025-03-17] VITALS: Ht 170.2 cm; Wt 151.2 kg
[2025-03-17] VITALS (18 sets, daily range): BP systolic 76–129; BP diastolic 50–106
[~2025-03-17 09:49] MED LIST changes: +HYDHCL25 PO
[2025-03-17 10:41] LABS: BASOPHILS ABSOLUTE AUTO 0.07 K/mm3 (0.00-0.23); BASOPHILS PERCENT AUTO 0 % (0-2); EOSINOPHILS ABSOLUTE AUTO 0.06 K/mm3 (0.00-0.68); EOSINOPHILS PERCENT AUTO 0 % (0-6); Hematocrit 44.9 % (33.0-51.0); Hemoglobin 14.9 g/dL (11.5-16.0); IMMATURE GRAN ABSOLUTE AUTO 0.13 K/mm3 (0.00-0.10); IMMATURE GRAN PERCENT AUTO 1 % (0-1); LYMPHOCYTES ABSOLUTE AUTO 1.02 K/mm3 (0.84-5.20); LYMPHOCYTES PERCENT AUTO 6 % (21-46); MONOCYTES ABSOLUTE AUTO 1.36 K/mm3 (0.16-1.47); MONOCYTES PERCENT AUTO 8 % (4-13); Mean Corpuscular HGB Conc 33.2 g/dL (31.5-36.5); Mean Corpuscular Volume 80 fL (80-100); NEUTROPHILS ABSOLUTE AUTO 14.16 K/mm3 (1.96-9.15); NEUTROPHILS PERCENT AUTO 84 % (41-73); NRBC ABSOLUTE 0.02 K/mm3 (0.00-0.02); NRBC Auto 0.1 /100 WBC (0.0-0.2); RDW Coefficient Variation 17.0 % (11.7-14.2); RDW Standard Deviation 48.9 fL (35.1-46.3)
[2025-03-17 10:57] LABS: Alanine Aminotransfer (ALT/SGP 17.0 U/L (12-78); Albumin, Blood 2.9 g/dL (3.4-5.0); Albumin/Globulin Ratio 0.7 (0.8-1.8); Anion Gap 11.0 mmol/L (3-11); Aspartate Aminotrans (AST/SGOT 31.0 U/L (12-37); Bilirubin, Total 1.6 mg/dL (0.1-1.0); Blood Urea Nitrogen 15.0 mg/dL (8-24); CO2, Blood 26.0 mmol/L (21-32); Calcium, Blood 9.0 mg/dL (8.5-10.1); Chloride, Blood 97.0 mmol/L (98-108); Creatinine, Blood 1.15 mg/dL (0.40-1.00); Globulin, Blood 4.1 g/dL (2.2-4.0); Glucose, Blood 139.0 mg/dL (70-99); Potassium, Blood 4.6 mmol/L (3.5-5.5); Sodium, Blood 129.0 mmol/L (136-145); Total Protein, Blood 7.0 g/dL (6.4-8.2)
[2025-03-17 11:15] LABS: Source, Urine Clean Catch
[2025-03-17 11:18] LABS: Bilirubin, Urine Neg (Neg); Color, Urine Yellow (P-Yellow); Glucose Qualitative, Urine Neg (Neg); Ketones, Urine Neg (Neg); Leukocyte Esterase, Urine 3+ (Neg); Protein, Urine 2+ (Neg); Specific Gravity, Urine 1.010 (1.003-1.022); Urobilinogen, Urine NORM (Normal)
[2025-03-17 11:29] LABS: White Blood Cells, Urine TNTC /hpf (0-5)
[2025-03-17] MEDS ORDERED: CefTRIAXone Sodium 1,000 MG in NS 100 ML IV ONE ×2 (11:40→13:30)
[2025-03-17] MEDS ORDERED: NS 1,000 ML IV SCH ×2 (11:45→13:25)
[2025-03-17 13:00] LABS: Influenza A, PCR NEGATIVE (NEGATIVE); Influenza B, PCR NEGATIVE (NEGATIVE); Resp Syncytial Virus, PCR NEGATIVE (NEGATIVE); SARS-Cov-2 (COVID-19) PCR, MMC NEGATIVE (NEGATIVE)
[2025-03-17] MEDS ORDERED: Magnesium Hydroxide Conc 10 ML UDC PO PRN (13:25)
[2025-03-17] MEDS ORDERED: Ondansetron HCl 2 MG / ML 2ML Vial IV PRN (13:25)
[2025-03-17] MEDS ORDERED: FLU VACC TS2025(65UP)/MF59C/PF 45 MCG/0.5 ML SYRINGE IM SCH (13:25)
[2025-03-17] MEDS ORDERED: Ketorolac Tromethamine 30mg Vial ONE (14:18)
[2025-03-17] MEDS ORDERED: Rocuronium Bromide 10 MG/ML 5ML Injection IV ONE (14:59)
[2025-03-17] MEDS ORDERED: FentaNYL Citrate 50 MCG/ML 2 ML Injection ONE (15:18)
[2025-03-17] MEDS ORDERED: Phenylephrine HCl 100 MCG/ML-NS 10MLSYR (1MG/10ML) ONE ×2 (15:32→15:52)
[2025-03-17] MEDS ORDERED: CeFAZolin Sodium 2,000 MG VIAL ONE (16:03)
[2025-03-17] MEDS ORDERED: HYDROcodone 5-APAP 325 TAB PO PRN (17:05)
--- NOTE | 2025-03-17 18:04 | NUR ---
ARRIVAL NOTE: YVETTE ARRIVES TO UNIT & IS ALERT AND ORIENTED X4 & COOPERATIVE WITH HER CARE. IS SATITNG 92% ON 2-4LITERS VIA NASAL CANNULA. YVETTE HAD A RIGHT URETER STENT PLACED BY UROLOGY TODAY. YVETTE WAS STARTED ON CARDIZEM DRIP AND CURRENTLY RUNNING AT 10ML/HR FOR A HEART RATE IN 130-150. YVETTE IS ON TELE SHOWING AFIB. YVETTE IS REGULAR DIET AND ABLE TO EAT. YVETTE USES A LIFT AT BASELINE. DAUGHTER AWARE OF THE TRANSFER TO UNIT AND MED REC WAS COMPLETED. PHOTOS DONE FOR WOUNDS YVETTE BILATERAL LOWER EXTREMITIES ARE BLUE,COLD & PRITI, SOME MOTTLING. YVETTE ORIENTED TO CALL LIGHT & CURRENTLY SITITNG UP EATING DINNER.
[2025-03-17 20:07] LABS: Albumin, Blood 2.7 g/dL (3.4-5.0); Anion Gap 13 mmol/L (3-11); Blood Urea Nitrogen 18 mg/dL (8-24); CO2, Blood 23 mmol/L (21-32); Calcium, Blood 9.0 mg/dL (8.5-10.1); Chloride, Blood 98 mmol/L (98-108); Creatinine, Blood 1.32 mg/dL (0.40-1.00); Glucose, Blood 173 mg/dL (70-99); Phosphorus, Blood 4.9 mg/dL (2.5-4.9); Potassium, Blood 4.6 mmol/L (3.5-5.5); Sodium, Blood 129 mmol/L (136-145)
[2025-03-17] MEDS ORDERED: Miconazole Nitrate 2% 85 GM PWD TOP SCH (21:00)
[2025-03-17] MEDS ORDERED: Lactobacil 2-S.Thermo-Bifido 1 1 Cap PO SCH (21:00)
[2025-03-18] VITALS (10 sets, daily range): BP systolic 109–147; BP diastolic 64–99
[2025-03-18 04:33] LABS: BASOPHILS ABSOLUTE AUTO 0.06 K/mm3 (0.00-0.23); BASOPHILS PERCENT AUTO 0 % (0-2); EOSINOPHILS ABSOLUTE AUTO 0.10 K/mm3 (0.00-0.68); EOSINOPHILS PERCENT AUTO 0 % (0-6); Hematocrit 46.3 % (33.0-51.0); Hemoglobin 15.0 g/dL (11.5-16.0); IMMATURE GRAN ABSOLUTE AUTO 0.48 K/mm3 (0.00-0.10); IMMATURE GRAN PERCENT AUTO 2 % (0-1); LYMPHOCYTES ABSOLUTE AUTO 1.00 K/mm3 (0.84-5.20); LYMPHOCYTES PERCENT AUTO 4 % (21-46); MONOCYTES ABSOLUTE AUTO 1.24 K/mm3 (0.16-1.47); MONOCYTES PERCENT AUTO 5 % (4-13); Mean Corpuscular HGB Conc 32.4 g/dL (31.5-36.5); Mean Corpuscular Volume 82 fL (80-100); NEUTROPHILS ABSOLUTE AUTO 22.99 K/mm3 (1.96-9.15); NEUTROPHILS PERCENT AUTO 89 % (41-73); NRBC ABSOLUTE 0.00 K/mm3 (0.00-0.02); NRBC Auto 0.0 /100 WBC (0.0-0.2); Platelet Count 144 K/mm3 (150-400); RDW Coefficient Variation 17.5 % (11.7-14.2); RDW Standard Deviation 52.3 fL (35.1-46.3)
[2025-03-18 04:34] LABS: Anion Gap 12.0 mmol/L (3-11); Blood Urea Nitrogen 22.0 mg/dL (8-24); CO2, Blood 24.0 mmol/L (21-32); Calcium, Blood 8.7 mg/dL (8.5-10.1); Chloride, Blood 98.0 mmol/L (98-108); Creatinine, Blood 1.39 mg/dL (0.40-1.00); Glucose, Blood 202.0 mg/dL (70-99); Magnesium, Blood 2.2 mg/dL (1.6-2.4); Potassium, Blood 5.0 mmol/L (3.5-5.5); Sodium, Blood 129.0 mmol/L (136-145)
--- NOTE | 2025-03-18 06:46 | NUR ---
SHIFT SUMMARY: PT A&OX4 CALM AND COOPERATIVE. HR AFIB 70S-100S. BP STABLE. CARDIZEM INFUSING @ 5ML/HR. MAINTAINING >92% ON 3L NC. PT REMAINS BEDREST. Q2 REPOSITIONING PROVIDED. MEPILEX PLACED ON COCCYX. PT USES LIFT AT BASELINE. LOWER ARTERIAL STUDY COMPLETED DURING SHIFT. HUERTA IN PLACE DRAINING TO GRAVITY. PT TOLERATING DIET AND TAKES MEDS WHOLE IN PUDDING. BED IS LOW AND LOCKED. CALL LIGHT WITHIN REACH. CONTINUE WITH CURRENT PLAN OF CARE.
[2025-03-18] MEDS ORDERED: Misc. Tablet PO SCH (09:00)
[2025-03-18] MEDS ORDERED: CefTRIAXone Sodium 2,000 MG in NS 100 ML IV SCH (09:00)
[2025-03-18] MEDS ORDERED: Cholecalciferol 1000 Unit Tablet (=25MCG) PO SCH (09:00)
[2025-03-18] MEDS ORDERED: ZINC OXIDE/PETROLATUM, YELLOW 1 APPLIC/71 GM PASTE TOP PRN (11:30)
--- NOTE | 2025-03-18 12:19 | NUR ---
UPDATE: PT C/O HEADACHE, MEDICATED PER EMAR. REPOSITIONED PT HIGH FOWLERS, ELEVATED LIMBS. COMPLETED HUERTA CARE, AND CHANGED STAT LOCK DUE TO RESISTANCE. APPLIED ANTIFUNGAL POWDER TO PANNUS FOLDS AND BENEATH BREASTS. BOOSTED PT UP IN BED, CHANGED LINEN AND ATTENDS. PT SITTING UP IN BED EATING LUNCH, CALL IN REACH.
[2025-03-18] MEDS ORDERED: Metoprolol Tartrate 1 MG/ML 5 ML VIAL IV PRN (15:05)
--- NOTE | 2025-03-18 16:37 | NUR ---
SHIFT SUMMARY: PT A/O X4, ABLE TO MAKE NEEDS KNOWN. TRANSFERS VIA LIFT AT BASELINE. AFIB 90-100s, DENIES CHEST PAIN/PRESSURE. PT HR MAINTAINED 130-140s THIS AFTERNOON, NOTIFIED, GAVE 5MG METOPROLOL PUSH PER ORDER. PT RESPONDED WELL. 2L NC, SATS >95%, C/O SOB WHEN MOVING AROUND. AFEBRILE, OTHER VSS. 2+ EDEMA IN BLE AND ABDOMEN. BLE COOL AND CYANOTIC. PT HAD A MEDIUM BM TODAY FOLLOWING SUPPOSITORY DUE TO CONSTIPATION. APPLIED ANTIGUGAL POWDER TO PANNUS/UNDER BREASTS. REDRESSED MEPILEX ON COCCYX. SEE PHOTOS IN CHART. PT LYING IN BED, CALL WITHIN REACH. WILL REPORT TO ONCOMING RN.
[2025-03-18] MEDS ORDERED: Arginine/Glutamine/Calcium Hmb 1 Packet PO SCH (21:00)
[2025-03-19 02:53] VITALS: BP 135/75
--- NOTE | 2025-03-19 03:57 | NUR ---
SHIFT SUMMARY: NO ACUTE CHANGES DURING TONIGHTS NIGHTSHIFT. PATIENT IS A&OX4. PAYROLL BENEFITS ADMINISTRATOR REPORTS PATIENTS RHYTHM IN AFIB WITH HR BETWEEN 80'S-90'S BPM. PATIENT DENIES CHEST PAIN, PALPATATIONS, OR PRESSURE AT THIS TIME. OTHER VITALS ARE STABLE AND IS CURRENTLY ON 1L OF OXYGEN VIA NC WITH >90% SPO2. PAIN HAS BEEN MANAGED WITH PO NORCO PER JUL. HUERTA DRAINING TO GRAVITY WITH YELLOW URINE OUTPUT. Q2H TURNS - PATIENT IS A LIFT AT BASELINE. BLE ARE CYANOTIC AND COOL TO THE TOUCH WITH NO SENSATION BUT PER PATIENT THIS IS HER BASELINE - DOPPLER USED FOR PULSE CHECKS. +2 EDEMA TO BLE AND ABD BUT WAS RESTARTED ON HOME DOSE OF LASIX YESTERDAY PER DAYSHIFT RN. MEPILEX ON COCCYX IS C/D/I. PATIENT IS CURRENTLY LAYING IN BED WITH CALL LIGHT IN REACH. PATIENT IS ABLE TO MAKE HER NEEDS KNOWN AND CALLS APPROPRIATELY.
[2025-03-19 04:15] LABS: BASOPHILS ABSOLUTE AUTO 0.03 K/mm3 (0.00-0.23); BASOPHILS PERCENT AUTO 0 % (0-2); EOSINOPHILS ABSOLUTE AUTO 0.04 K/mm3 (0.00-0.68); EOSINOPHILS PERCENT AUTO 0 % (0-6); Hematocrit 43.8 % (33.0-51.0); Hemoglobin 14.0 g/dL (11.5-16.0); IMMATURE GRAN ABSOLUTE AUTO 0.18 K/mm3 (0.00-0.10); IMMATURE GRAN PERCENT AUTO 1 % (0-1); LYMPHOCYTES ABSOLUTE AUTO 0.91 K/mm3 (0.84-5.20); LYMPHOCYTES PERCENT AUTO 5 % (21-46); MONOCYTES ABSOLUTE AUTO 1.23 K/mm3 (0.16-1.47); MONOCYTES PERCENT AUTO 7 % (4-13); Mean Corpuscular HGB Conc 32.0 g/dL (31.5-36.5); Mean Corpuscular Volume 83 fL (80-100); NEUTROPHILS ABSOLUTE AUTO 16.12 K/mm3 (1.96-9.15); NEUTROPHILS PERCENT AUTO 87 % (41-73); NRBC ABSOLUTE 0.00 K/mm3 (0.00-0.02); NRBC Auto 0.0 /100 WBC (0.0-0.2); RDW Coefficient Variation 17.2 % (11.7-14.2); RDW Standard Deviation 52.3 fL (35.1-46.3)
[2025-03-19 05:18] LABS: Platelet Count 141 K/mm3 (150-400)
[2025-03-19 07:10] LABS: Albumin, Blood 2.7 g/dL (3.4-5.0); Anion Gap 11 mmol/L (3-11); Blood Urea Nitrogen 30 mg/dL (8-24); CO2, Blood 24 mmol/L (21-32); Calcium, Blood 9.0 mg/dL (8.5-10.1); Chloride, Blood 96 mmol/L (98-108); Creatinine, Blood 1.30 mg/dL (0.40-1.00); Glucose, Blood 220 mg/dL (70-99); Magnesium, Blood 2.2 mg/dL (1.6-2.4); Phosphorus, Blood 4.3 mg/dL (2.5-4.9); Potassium, Blood 4.8 mmol/L (3.5-5.5); Sodium, Blood 126 mmol/L (136-145)
[2025-03-19] MEDS ORDERED: NS 1,000 ML IV SCH (08:00)
[2025-03-19 10:03] VITALS: BP 118/80
[2025-03-19 11:52] VITALS: BP 161/101
[2025-03-19 17:32] VITALS: BP 111/71
--- NOTE | 2025-03-19 17:53 | NUR ---
TRANSFER NOTE PT A&OX4. SP02>90% ON RA. PT MED/TELE STATUS. TELEMETRY SHOWS AFIB, HR 100'S-130'S. METOPROLOL DOSE AND FREQUENCY INCREASED THIS SHIFT. HUERTA CATHETER REMOVED THIS SHIFT, AWAITING POST REMOVAL VOID. ATTEMPTED BM TWICE TODAY W/ NO SUCCESS. C/O OF BACK PAIN, MEDICATED PER EMAR. FAMILY IN ROOM THIS AFTERNOON. NEW IV PLACED. ATTEMPTED TO REPOSITIONED Q2H, PT REFUSED SOME OF THE TIME. REFUSED BED BATH. REPORT GIVEN TO MEDICAL FLOOR RN. PT CAN TRANSFER TO [facility].
[2025-03-19 20:42] VITALS: BP 129/68
[2025-03-19 23:31] VITALS: BP 115/73
[2025-03-20 03:36] VITALS: BP 89/66
[2025-03-20 05:17] LABS: BASOPHILS ABSOLUTE AUTO 0.06 K/mm3 (0.00-0.23); BASOPHILS PERCENT AUTO 1 % (0-2); EOSINOPHILS ABSOLUTE AUTO 0.20 K/mm3 (0.00-0.68); EOSINOPHILS PERCENT AUTO 2 % (0-6); Hematocrit 46.4 % (33.0-51.0); Hemoglobin 14.8 g/dL (11.5-16.0); IMMATURE GRAN ABSOLUTE AUTO 0.08 K/mm3 (0.00-0.10); IMMATURE GRAN PERCENT AUTO 1 % (0-1); LYMPHOCYTES ABSOLUTE AUTO 0.94 K/mm3 (0.84-5.20); LYMPHOCYTES PERCENT AUTO 8 % (21-46); MONOCYTES ABSOLUTE AUTO 1.07 K/mm3 (0.16-1.47); MONOCYTES PERCENT AUTO 9 % (4-13); Mean Corpuscular HGB Conc 31.9 g/dL (31.5-36.5); Mean Corpuscular Volume 84 fL (80-100); NEUTROPHILS ABSOLUTE AUTO 9.61 K/mm3 (1.96-9.15); NEUTROPHILS PERCENT AUTO 80 % (41-73); NRBC ABSOLUTE 0.00 K/mm3 (0.00-0.02); NRBC Auto 0.0 /100 WBC (0.0-0.2); RDW Coefficient Variation 17.5 % (11.7-14.2); RDW Standard Deviation 53.0 fL (35.1-46.3)
[2025-03-20 05:19] LABS: Platelet Count 162 K/mm3 (150-400)
[2025-03-20 05:31] LABS: Alanine Aminotransfer (ALT/SGP 12.0 U/L (12-78); Albumin, Blood 2.8 g/dL (3.4-5.0); Albumin/Globulin Ratio 0.6 (0.8-1.8); Anion Gap 7.0 mmol/L (3-11); Aspartate Aminotrans (AST/SGOT 12.0 U/L (12-37); Bilirubin, Total 0.5 mg/dL (0.1-1.0); Blood Urea Nitrogen 33.0 mg/dL (8-24); CO2, Blood 28.0 mmol/L (21-32); Calcium, Blood 9.0 mg/dL (8.5-10.1); Chloride, Blood 98.0 mmol/L (98-108); Creatinine, Blood 1.32 mg/dL (0.40-1.00); Globulin, Blood 4.7 g/dL (2.2-4.0); Glucose, Blood 156.0 mg/dL (70-99); Magnesium, Blood 2.2 mg/dL (1.6-2.4); Phosphorus, Blood 3.7 mg/dL (2.5-4.9); Potassium, Blood 4.2 mmol/L (3.5-5.5); Sodium, Blood 129.0 mmol/L (136-145); Total Protein, Blood 7.5 g/dL (6.4-8.2)
[2025-03-20] MEDS ORDERED: Polyethylene Glycol 3350 17 gm PO PRN (07:45)
[2025-03-20 07:46] VITALS: BP 123/75
[2025-03-20] MEDS ORDERED: NS 1,000 ML IV SCH (08:00)
[2025-03-20] MEDS ORDERED: Meropenem 2,000 MG in NS 250 ML IV SCH (08:00)
--- NOTE | 2025-03-20 18:15 | NUR ---
SHIFT SUMMARY PT A&OX4, [place], AFIB 90-105 ON TELE, VSS, RA. BED BOUND AT BASELINE. BLOOD CULTURES FINALIZED, IV ANTIBIOTICS CHANGED. NYSTATIN APPLIED TO REDNESS UNDER PANIS AND BREASTS. PUREWICK IN PLACE WITH PINK TINGED URINE. NS AT 100ML/HR BAG 1 OF 2 INFUSING. PT PLEASANT AND COOPERATIVE WITH CARE, CALL LIGHT IN REACH.
[2025-03-20 20:24] VITALS: BP 115/72
[2025-03-20 23:33] VITALS: BP 136/100
[2025-03-21 04:06] VITALS: BP 119/64
--- NOTE | 2025-03-21 04:56 | NUR ---
PARTY PLAN SALES CONSULTANT REVIEW: MOST RECENT RHYTHM STRIP IN CHART REVIEWED AND INTERPRETED A-FIB @ 98bpm BY THIS RN.
[2025-03-21 07:54] VITALS: BP 96/57
[2025-03-21 08:38] VITALS: BP 116/67
[2025-03-21 09:00] LABS: Hematocrit 47.5 % (33.0-51.0); Hemoglobin 15.2 g/dL (11.5-16.0); Mean Corpuscular HGB Conc 32.0 g/dL (31.5-36.5); Mean Corpuscular Volume 84 fL (80-100); NRBC ABSOLUTE 0.00 K/mm3 (0.00-0.02); NRBC Auto 0.0 /100 WBC (0.0-0.2); Platelet Count 170 K/mm3 (150-400); RDW Coefficient Variation 17.4 % (11.7-14.2); RDW Standard Deviation 53.5 fL (35.1-46.3)
[2025-03-21 09:47] LABS: Alanine Aminotransfer (ALT/SGP 20.0 U/L (12-78); Albumin, Blood 2.7 g/dL (3.4-5.0); Albumin/Globulin Ratio 0.6 (0.8-1.8); Anion Gap 8.0 mmol/L (3-11); Aspartate Aminotrans (AST/SGOT 32.0 U/L (12-37); Bilirubin, Total 0.7 mg/dL (0.1-1.0); Blood Urea Nitrogen 30.0 mg/dL (8-24); CO2, Blood 28.0 mmol/L (21-32); Calcium, Blood 9.2 mg/dL (8.5-10.1); Chloride, Blood 98.0 mmol/L (98-108); Creatinine, Blood 1.18 mg/dL (0.40-1.00); Globulin, Blood 4.6 g/dL (2.2-4.0); Glucose, Blood 127.0 mg/dL (70-99); Potassium, Blood 4.4 mmol/L (3.5-5.5); Sodium, Blood 130.0 mmol/L (136-145); Total Protein, Blood 7.3 g/dL (6.4-8.2)
[2025-03-21] MEDS ORDERED: FURO20 PO (14:29)
[2025-03-21 15:23] VITALS: BP 99/68
--- NOTE | 2025-03-21 17:15 | NUR ---
SHIFT SUMMARY PT AOX4 BUT LETHARGIC. FAMILY AT THE BS. MEDICATED FOR PAIN PER THE EMAR. REPOSITIONED THROUGHOUT THE SHIFT. TELE DC'Raina. CHALO IN PLACE. PT TO DC ON FRIDAY PENDING IV ABX COMPLETION. CALL LIGHT WITHIN REACH, BED LOCKED AND IN THE LOWEST POSITION. WILL REPORT TO ONCOMING NURSE.
[2025-03-21 20:09] VITALS: BP 125/85
[2025-03-21] MEDS ORDERED: NS 250 ML IV PRN (23:55)
[2025-03-22 00:04] VITALS: BP 138/85
[2025-03-22 04:26] VITALS: BP 114/82
--- NOTE | 2025-03-22 06:40 | NUR ---
SHIFT SUMMARY A/Ox4, AFIB RHYTHM, HR 100-140s, OTHER VSS ON RA. DROWSY EARLY IN SHIFT, MORE ALERT AND INTERACTIVE LATER. PT REPORTS 6/10 CHRONIC BACK PAIN, MANAGED WITH PRN NORCO. POOR APPETITE AND ORAL INTAKE NOTED. FAMILY REPORTS PT LIKES CHOCOLATE ENSURE WHEN MEALS ARE REFUSED. NO ACUTE CHANGES OVERNIGHT. SAFETY PRECAUTIONS IN PLACE. Q2 TURNS COMPLETED.
[2025-03-22 07:29] VITALS: BP 124/76
[2025-03-22 07:42] LABS: Hematocrit 43.0 % (33.0-51.0); Hemoglobin 14.2 g/dL (11.5-16.0); Mean Corpuscular HGB Conc 33.0 g/dL (31.5-36.5); Mean Corpuscular Volume 81 fL (80-100); NRBC ABSOLUTE 0.00 K/mm3 (0.00-0.02); NRBC Auto 0.0 /100 WBC (0.0-0.2); RDW Coefficient Variation 17.2 % (11.7-14.2); RDW Standard Deviation 50.7 fL (35.1-46.3)
[2025-03-22 07:44] LABS: Albumin, Blood 2.5 g/dL (3.4-5.0); Anion Gap 7 mmol/L (3-11); Blood Urea Nitrogen 31 mg/dL (8-24); CO2, Blood 27 mmol/L (21-32); Calcium, Blood 8.8 mg/dL (8.5-10.1); Chloride, Blood 102 mmol/L (98-108); Creatinine, Blood 1.07 mg/dL (0.40-1.00); Glucose, Blood 145 mg/dL (70-99); Phosphorus, Blood 2.5 mg/dL (2.5-4.9); Potassium, Blood 4.2 mmol/L (3.5-5.5); Sodium, Blood 132 mmol/L (136-145)
[2025-03-22 08:05] LABS: Platelet Count 160 K/mm3 (150-400)
[2025-03-22] MEDS ORDERED: HYDROcodone 5-APAP 325 TAB PO PRN (09:50)
[2025-03-22] MEDS ORDERED: HYDROcodone 5-APAP 325 TAB PO ONE (10:05)
[2025-03-22 11:07] VITALS: BP 109/63
--- NOTE | 2025-03-22 17:59 | NUR ---
SHIFT SUMMARY PT AOX4, SLEEPING OF AND ON THROUGHOUT THE SHIFT. MEDICATED FOR PAIN PER THE EMAR. REFUSED TO GET UP TO THE CHAIR, OFTEN DOES NOT WANT TO BE REPOSITIONED. MEPALEX TO COCCYX CHANGED, REPOSITIONED THROUGHOUT THE SHIFT AFTER FURTHER EDUCATION. FAMILY UPDATED. PG TO ZEYAD PLACED TODAY. NO EVENTS PER TELE. CALL LIGHT WITHIN REACH, BED LOCKED AND IN THE LOWEST POSITION. WILL REPORT TO ONCOMING NURSE.
[2025-03-22 20:13] VITALS: BP 133/72
[2025-03-22 23:49] VITALS: BP 125/62
[2025-03-23 03:44] VITALS: BP 124/73
--- NOTE | 2025-03-23 04:06 | NUR ---
SUMMARY: PT A/OX4 AND CONVEYS NEEDS BUT IS CONTANKEROUS W/CARE AT TIMES AND OFTEN REFUSES REPOSITIONING. STAFF MAINTAINED TURN SCHEDULE BEST ABLE, UTILIIZING PILLOWS, WEDGES AND LIFT FOR REPOSITIONING. MEPILEX REMAINS C/D/I TO STAGE II COCCYX WOUND AND PUREWIC IS INTACT DRAINING KAE/RED URINE. SHE WAS MEDICATED FOR ANXIETY AND BACK PAIN W/PRN ATIVAN AND NORCO FOR TOLERABLE RELIEF. PT NOTED TO BE SOB W/REPOSITIONING AND WHEN ANXIOUS BUT RESPS CALM W/REST AND SPO2 MAINTAINED >94% ON RA. IV ABX RECEIVED PER EMAR AND POSSIBLE D/C FRIDAY UPON COMPLETION OF MEROPENEM. SHE REMAINS AFIB ON TELE AT 80'S- 90'S BPM. VSS/AFEBRILE AND NO ACUTE CHANGES. WILL REPORT TO DAY RN.
[2025-03-23 05:35] LABS: Hematocrit 41.9 % (33.0-51.0); Hemoglobin 13.5 g/dL (11.5-16.0); Mean Corpuscular HGB Conc 32.2 g/dL (31.5-36.5); Mean Corpuscular Volume 82 fL (80-100); NRBC ABSOLUTE 0.00 K/mm3 (0.00-0.02); NRBC Auto 0.0 /100 WBC (0.0-0.2); Platelet Count 150 K/mm3 (150-400); RDW Coefficient Variation 17.4 % (11.7-14.2); RDW Standard Deviation 51.9 fL (35.1-46.3)
[2025-03-23 05:55] LABS: Alanine Aminotransfer (ALT/SGP 20.0 U/L (12-78); Albumin, Blood 2.4 g/dL (3.4-5.0); Albumin/Globulin Ratio 0.6 (0.8-1.8); Anion Gap 10.0 mmol/L (3-11); Aspartate Aminotrans (AST/SGOT 31.0 U/L (12-37); Bilirubin, Total 0.5 mg/dL (0.1-1.0); Blood Urea Nitrogen 29.0 mg/dL (8-24); CO2, Blood 24.0 mmol/L (21-32); Calcium, Blood 8.9 mg/dL (8.5-10.1); Chloride, Blood 104.0 mmol/L (98-108); Creatinine, Blood 0.91 mg/dL (0.40-1.00); Globulin, Blood 4.1 g/dL (2.2-4.0); Glucose, Blood 126.0 mg/dL (70-99); Potassium, Blood 4.2 mmol/L (3.5-5.5); Sodium, Blood 134.0 mmol/L (136-145); Total Protein, Blood 6.5 g/dL (6.4-8.2)
[2025-03-23 08:58] VITALS: BP 120/76
[2025-03-23 15:26] VITALS: BP 130/73
--- NOTE | 2025-03-23 17:59 | NUR ---
SHIFT SUMMARY PT AOX3/4, COOPERATIVE, ABLE TO MAKE NEEDS KNOWN. PT IS LIFT PT, CURRENLTY BEDREST. TOLERATING MEDICATIONS. PT HAS HAD MULTIPLE EPISODES OF ANXIETY, THERAPEUTIC COMMUNICATION EFFECTIVE. COCCYX WOUND CHANGED PER ORDER, MEPILEX APPLIED. PT DID EXPRESS FEELING "CONSTIPATED" TODAY, THOUGH DID HAVE AT LEAST 1 BM THIS SHIFT USING BEDPAN. VERY EDEMATOUS BLE, DIURESING APPROPRIATE. ON ISO FOR MRSA OF WOUND. SUPPOSED TO DC BACK HOME TOMORROW. REACH OUT TO CASE MANAGEMENT TOMORROW FOR TRANSPORTATION. BED IN LOWEST POSITION, CALL LIGHT WITHIN REACH.
[2025-03-23 20:28] VITALS: BP 114/57
[2025-03-23 23:50] VITALS: BP 119/59
--- NOTE | 2025-03-24 03:47 | NUR ---
SHIFT SUMMARY: PT IS AOX3. PT STATED SHE FELT VERY ANXIOUS AT THE START OF SHIFT AND STARTED GETTING AGGITATED AND YELLING AT THIS CONTRACTS PARALEGAL BECAUSE SHE DID NOT HAVE ANY ANXIET MEDS DUE UNTIL MIDNIGHT. I OFFERED PT A WARM BLANKET AND TO BE REPOSITIONED BUT SHE WAS DECLINED BOTH. WHEN I STATED I WOULD CALL THE NIGHT HOSPITALIST TO SEE IF HE WOULD ORDER ANYTHING FOR ANXIETY SHE STATED SHE ONLY WANTED TO PRESCRIBE HER MEDS AND CALLED THE NUMBER OFF OF THE CARD THEY GIVE OUT DURING ROUNDS IN THE DAY TIME. WHEN DID NOT ANSWER PT CONTINUED TO YELL AT NURSE. I CALLED THE NIGHT HOSPITALIST AND A ONE TIME ORDER OF ATIVAN AND MELTONIN WERE ORDERED. THESE WERE GIVEN WITH NORRCO REQUESTED AND PT SLEPT THE REST OF THE NIGHT.
[2025-03-24 04:46] VITALS: BP 118/72
[2025-03-24 07:32] LABS: Hematocrit 44.1 % (33.0-51.0); Hemoglobin 14.3 g/dL (11.5-16.0); Mean Corpuscular HGB Conc 32.4 g/dL (31.5-36.5); Mean Corpuscular Volume 82 fL (80-100); NRBC ABSOLUTE 0.03 K/mm3 (0.00-0.02); NRBC Auto 0.4 /100 WBC (0.0-0.2); Platelet Count 175 K/mm3 (150-400); RDW Coefficient Variation 17.8 % (11.7-14.2); RDW Standard Deviation 51.0 fL (35.1-46.3)
[2025-03-24 07:40] LABS: Alanine Aminotransfer (ALT/SGP 20.0 U/L (12-78); Albumin, Blood 2.5 g/dL (3.4-5.0); Albumin/Globulin Ratio 0.6 (0.8-1.8); Anion Gap 10.0 mmol/L (3-11); Aspartate Aminotrans (AST/SGOT 28.0 U/L (12-37); Bilirubin, Total 0.5 mg/dL (0.1-1.0); Blood Urea Nitrogen 30.0 mg/dL (8-24); CO2, Blood 25.0 mmol/L (21-32); Calcium, Blood 8.9 mg/dL (8.5-10.1); Chloride, Blood 104.0 mmol/L (98-108); Creatinine, Blood 0.87 mg/dL (0.40-1.00); Globulin, Blood 4.1 g/dL (2.2-4.0); Glucose, Blood 145.0 mg/dL (70-99); Potassium, Blood 3.8 mmol/L (3.5-5.5); Sodium, Blood 135.0 mmol/L (136-145); Total Protein, Blood 6.6 g/dL (6.4-8.2)
[2025-03-24 07:41] VITALS: BP 126/82
[2025-03-24 08:26] VITALS: BP 107/74
--- NOTE | 2025-03-24 09:00 | NUR ---
pt laying in bed awake, a/ox3, forgetful, lungs are clear in upper hill, dim in bases, resp even and unlabored, no cough noted, on r/a, hrirr, 3+ edema noted to b/l, cap refill <3sec, vs stable, afebrile, power glide to salas site is clear and patent, btx4, abd flat soft nontender, voids via purwick at this time, skin has mepilex to coccyx, is a lift to get oob, dev, call light in reach.
[2025-03-24 11:41] VITALS: BP 134/78
[2025-03-24 15:36] VITALS: BP 140/94
--- NOTE | 2025-03-24 18:00 | NUR ---
pt has been discharged to home with her daughter, transport was late, which made pt very anxious, atarax given, power glide removed intact, dressed with 2x2 and coban, left via gurney with transport team, with all her belongings.
== END 2025-03-24 17:45 | disposition home health service (06) | DRG 854 ==
LOC: ER 09:49 → MEDS 09:50 → PCU 09:50 → MEDS 03-19 18:25 → ENPENDDIS 03-24 10:39 → MEDS 03-24 17:45
PROVIDERS: Registered Nurse; Student in an Organized Health Care Education/Training Program; Urology; ADMIT Internal Medicine
PROC: 0T768DZ Dilation of Right Ureter with Intraluminal Device, Via Natural or Artificial Opening Endoscopic (ICD-10-PCS; 2025-03-17)
PROC: 3E03329 Introduction of Other Anti-infective into Peripheral Vein, Percutaneous Approach (ICD-10-PCS; 2025-03-17)
PROC: BT1D1ZZ Fluoroscopy of Right Kidney, Ureter and Bladder using Low Osmolar Contrast (ICD-10-PCS; 2025-03-17)
PROC: 0T9B70Z Drainage of Bladder with Drainage Device, Via Natural or Artificial Opening (ICD-10-PCS; principal; 2025-03-17 15:00)
DX: A41.9 Sepsis, unspecified organism (principal); E87.1 Hypo-osmolality and hyponatremia; I50.32 Chronic diastolic (congestive) heart failure; N13.6 Pyonephrosis; N17.9 Acute kidney failure, unspecified; I13.0 Hypertensive heart and chronic kidney disease with heart failure and stage 1 through stage 4 chronic kidney disease, or unspecified chronic kidney disease; Z68.43 Body mass index [BMI] 50.0-59.9, adult; N18.2 Chronic kidney disease, stage 2 (mild); I48.0 Paroxysmal atrial fibrillation; G43.909 Migraine, unspecified, not intractable, without status migrainosus; M54.50 Low back pain, unspecified; G89.29 Other chronic pain; E03.9 Hypothyroidism, unspecified; F41.9 Anxiety disorder, unspecified; K21.9 Gastro-esophageal reflux disease without esophagitis; G62.9 Polyneuropathy, unspecified; E66.01 Morbid (severe) obesity due to excess calories; Z95.0 Presence of cardiac pacemaker; Z90.49 Acquired absence of other specified parts of digestive tract; Z96.641 Presence of right artificial hip joint; Z98.890 Other specified postprocedural states; Z90.710 Acquired absence of both cervix and uterus; Z89.421 Acquired absence of other right toe(s); Z74.01 Bed confinement status; Z79.01 Long term (current) use of anticoagulants; Z79.891 Long term (current) use of opiate analgesic; Z79.890 Hormone replacement therapy; Z79.899 Other long term (current) drug therapy; Z88.5 Allergy status to narcotic agent; Z88.8 Allergy status to other drugs, medicaments and biological substances; Z91.018 Allergy to other foods
CPT/HCPCS: 36415; 51702; 71045; 74177; 80048; 80053; 80069; 81001; 83605; 83690; 83735; 84100; 85025; 85027; 87040; 87077; 87086; 87186; 87637; 93005; 93010; 93922; 94760; 96365-59; 96376; 99285-25; A9270; C1758; C1769; C2617; G0378; J0690; J0696; J1885; J2185; J2371; J2704; J3010; J7030; J7050; J7120; Q9967

== ENCOUNTER → 2025-04-05 | Outpatient (CLI) | payer OTHER | END | disposition home or self-care (01) | LOC: PLD 07:46 → LAB SHORT 07:46 → LAB 07:46 | DX: L57.0 Actinic keratosis (principal) | CPT/HCPCS: 88305 ==

== ENCOUNTER 2025-04-20 05:54 | Day surgery (SDC) | payer OTHER ==
[~2025-04-20] VITALS: Ht 170.2 cm; Wt 135.0 kg
[2025-04-20] VITALS (9 sets, daily range): BP systolic 114–144; BP diastolic 79–99
[~2025-04-20 05:54] MED LIST changes: +METO25ER PO
--- NOTE | 2025-04-20 06:15 | NUR ---
INTO [facility] VIA MEDICAL TRANSPORT. PT IS A&OX4. PT DENIES ANXIETY SHE TOOK 0.5 MG ATIVAN PO THIS AM. PT REPORTS 3/10 GENERALIZED PAIN. PT IS BED BOUND AND LIFT NEEDED TO TRANSFER PT. HOVER MAT PLACED UNDER PT. HISTORY AND ALLERGIES REVIEWED. LUNGS DIMINISHED IN THE BASES. LOWER EXTREMITIES WITH 2-3+ PITTING EDEMA. BILATERAL LOWER EXTREMITIES DISCOLORED/PURPLE APPEARANCE. NO PAS PLACED. LEFT FOOT WITH SEVERAL ULCERS NOTED TO THE TOES. PT ALSO HAS WOUND TO COCCYX/SACRUM THAT HAVE BEEN EVALUATED AND TREATED BY HOME HEALTH-PT STATES THAT THEY ARE HEALED. NPO STATUS CONFIRMED.
[2025-04-20] MEDS ORDERED: FentaNYL Citrate 50 MCG/ML 2 ML Injection ONE (06:58)
[2025-04-20] MEDS ORDERED: Ondansetron HCl 2 MG / ML 2ML Vial ONE (06:58)
[2025-04-20] MEDS ORDERED: Dexamethasone Sod Phos 10 MG/ML 1ML VIAL ONE (06:58)
[2025-04-20] MEDS ORDERED: Rocuronium Bromide 10 MG/ML 5ML Injection IV ONE (07:28)
[2025-04-20] MEDS ORDERED: HYDROmorphone HCl/Pf 1MG SYR IV PRN (08:15)
[2025-04-20] MEDS ORDERED: Metoclopramide HCl 5MG / ML 2ML Vial IV PRN (08:20)
[2025-04-20] MEDS ORDERED: Ondansetron HCl 2 MG / ML 2ML Vial IV PRN (08:20)
[2025-04-20] MEDS ORDERED: FentaNYL Citrate 50 MCG/ML 2 ML Injection IV PRN ×3 (08:20)
[2025-04-20] MEDS ORDERED: Sugammadex Sodium 200 MG/2ML SDV (100 MG/ML) ONE ×2 (08:24→08:34)
[2025-04-20] MEDS ORDERED: HYDROcodone 5-APAP 325 TAB PO PRN ×2 (08:55→09:10)
--- NOTE | 2025-04-20 09:35 | NUR ---
REVIEWED DISCHARGE INSTRUCTIONS WITH PT PT VERBALIZED UNDERSTANDING. PT DAUGHTER AWARE THAT THERE IS A PRESCRIPTION THAT NEEDS TO BE FILLED TODAY. ASSISTED PT WITH CHANGING INTO GOW. [facility] HAS BEEN CONTACTED FOR TRANSPORT. PT READY FOR DISCHARGE-AWAITING TRANSPORT.
--- NOTE | 2025-04-20 10:25 | NUR ---
DISCHARGED TO HOME, OUT VIA [facility] TRANSPORT WITH BELONGINGS AND DISCHARGE INSTRUCTIONS ON HAND.
== END 2025-04-20 10:25 | disposition home or self-care (01) ==
LOC: ORSCMMR 05:54 → ORD 07:30 → ORSCSDS 07:30 → ORSCMMR 07:30
PROVIDERS: Urology
PROC: 0TF68ZZ Fragmentation in Right Ureter, Via Natural or Artificial Opening Endoscopic (ICD-10-PCS; principal; 2025-04-20 07:30)
PROC: 0T768DZ Dilation of Right Ureter with Intraluminal Device, Via Natural or Artificial Opening Endoscopic (ICD-10-PCS; principal; 2025-04-20 07:30)
DX: N13.2 Hydronephrosis with renal and ureteral calculous obstruction (principal); I10 Essential (primary) hypertension; K21.9 Gastro-esophageal reflux disease without esophagitis; I48.91 Unspecified atrial fibrillation; Z79.01 Long term (current) use of anticoagulants; I50.9 Heart failure, unspecified; E66.01 Morbid (severe) obesity due to excess calories; Z68.42 Body mass index [BMI] 45.0-49.9, adult; Z95.0 Presence of cardiac pacemaker; E03.9 Hypothyroidism, unspecified; Z79.899 Other long term (current) drug therapy
CPT/HCPCS: A9270; C1758; C1769; C2617; J1100; J2185; J2405; J2704; J3010; J7120